=== PATIENT | female | born 1950 | race Caucasian/White ===

== ENCOUNTER 2018-03-31 12:29 | Observation (INO) | payer OTHER ==
--- NOTE | 2018-03-31 14:51 | RAD REPORT ---
[facility] 2:35 pm CLINICAL HISTORY: left leg pain and swelling. COMPARISON: July 2017 FINDINGS: Echogenic material consistent with acute thrombus is present within the left common femora l, left superficial femoral, left popliteal and proximal left greater saphenous veins. . The thrombus is occlusive IMPRESSION: Extensive acute left lower extremity deep venous thrombosis
--- NOTE | 2018-03-31 14:53 | RAD REPORT ---
EXAM DESCRIPTION: US - Lower Extremity Artery Uni Ltd - 03/31/2018 2:35 pm CLINICAL HISTORY: Left leg pain and swelling COMPARISON: None FINDINGS: The waveform of the left common femoral artery triphasic. Waveforms left superficial femor al, left popliteal, left posterior tibial and left dorsalis pedis arteries are biphasic. Mild to moderate plaque is present the left common femoral artery. Mild additional plaque seen within the arteries. IMPRESSION: No evidence of a high-grade stenosis/arterial occlusion
[2018-03-31 15:10] LABS: Absolute Lymphocytes (CBC) 2.4 K/uL (0.7-4.9); Absolute Monocytes 0.9 K/uL (0.1-1.3); Absolute Neutrophil 8.3 K/uL (1.8-8.0); Basophils % 0.8 % (0-1.3); Eosinophils % 1.1 % (0-4.4); Hematocrit 47.5 % (36.0-45.0); Lymphocytes % 20.2 % (15.3-44.8); MPV 7.7 fL (7.6-11.3); Monocytes % 7.7 % (3.3-12.3); RBC Red Blood Cell Count 5.13 M/uL (3.86-4.86)
[2018-03-31 15:12] LABS: Protime INR 0.97
[2018-03-31 15:28] LABS: ALT/SGPT 35 U/L (12-78); AST/SGOT 22 U/L (15-37); Albumin 3.7 g/dL (3.4-5.0); Alkaline Phosphatase 108 U/L (45-117); BUN Blood Urea Nitrogen 9 mg/dL (7-18); Bicarbonate 27 mmol/L (21-32); Bilirubin Direct < 0.1 mg/dL (0-0.2); Bilirubin Total 0.3 mg/dL (0.2-1.0); Glucose Level 91 mg/dL (74-106); Magnesium 2.2 mg/dL (1.8-2.4); Potassium 4.4 mmol/L (3.5-5.1); Protein, Total 7.5 g/dL (6.4-8.2); Sodium Level 136 mmol/L (136-145)
[2018-03-31] MEDS ORDERED: RIVAROXABAN 15 MG TABLET PO ONE (15:30)
--- NOTE | 2018-03-31 16:18 | RAD REPORT ---
EXAM DESCRIPTION: CT - Chest For Pe Angio - 03/31/2018 4:08 pm CLINICAL HISTORY: Chest pain / DVT COMPARISON: None. TECHNIQUE: Dynamically enhanced axial 3 mm thick images of the chest were obtained during administra tion of <100> mL Isovue 370 IV contrast. Coronal and oblique reconstruction images were generated and reviewed. Exam utilizes a protocol for optimal evaluation of pulmonary arterial tree. Maximum intensity projections 3D imaging was utilized All CT scans are performed using dose optimization technique as appropriate and may include automated exposure control or mA/KV adjustment according to patient size. FINDINGS: A pulmonary embolus is not seen. A thoracic aortic aneurysm is not noted. A pleural effusion is not seen. A pericardial effusion is not seen. A lung consolidation is not present. IMPRESSION: Negative for a pulmonary embolism.
--- NOTE | 2018-03-31 16:33 | EDPHYS ---
Physician Documentation [facility] Name: Kylie Kaplan Age: 68 yrs Sex: Female : 1950 Arrival Date: 03/31/2018 Time: 12:32 Bed 20 Private MD: Juana Avina ED Physician Eleazar Jean HPI: 03/31 13:24 This 68 yrs old Female presents to ER via Wheelchair with complaints of Leg snw Swelling. 13:24 The patient presents with pain, that is acute, swelling, tenderness. The complaints snw affect the left calf, left knee, left gardiner and anterior aspect of left ankle. Context: The problem was sustained at home, resulted from kneeling, the patient can partially bear weight. Onset: The symptoms/episode began/occurred suddenly, today. Associated signs and symptoms: Pertinent positives: swelling, redness, pulling sensation. Severity of symptoms: At their worst the symptoms were moderate. The patient has not experienced similar symptoms in the past. The patient has not recently seen a physician, the patient's primary care provider is Dr. Villanueav. Historical: - Allergies: 12:50 PENICILLINS; hb - Home Meds: 12:50 Ativan 1 mg Oral tab 1 tab 3 times per day [Active]; Belsomra 10 mg Oral tab 1 tab hb nightly [Active]; Incruse Ellipta 62.5 mcg/actuation inhalation dsdv 1 puff once daily [Active]; Remeron 22.5 mg Oral once daily [Active]; Seroquel 200 mg Oral tab 1 tab 2 times per day [Active]; Silenor 3 mg Oral tab once daily for insomnia [Active]; 12:52 levothyroxine 150 mcg oral tab [Active]; gabapentin 300 mg oral cap twice a day hb [Active]; famotidine 20 mg Oral tab 1 tab once daily [Active]; - PMHx: 12:50 Anxiety; hb - Immunization history:: Adult Immunizations up to date. - Social history:: Smoking status: Patient uses tobacco products, smokes one pack cigarettes per day. - Ebola Screening: : No symptoms or risks identified at this time. ROS: 13:24 Constitutional: Negative for fever, chills, and weight loss, Eyes: Negative for injury, snw pain, redness, and discharge, ENT: Negative for injury, pain, and discharge, Neck: Negative for injury, pain, and swelling, Cardiovascular: Negative for chest pain, palpitations, and edema, Respiratory: Negative for shortness of breath, cough, wheezing, and pleuritic chest pain, Abdomen/GI: Negative for abdominal pain, nausea, vomiting, diarrhea, and constipation, Back: Negative for injury and pain, : Negative for injury, bleeding, discharge, and swelling, Skin: Negative for injury, rash, and discoloration, Neuro: Negative for headache, weakness, numbness, tingling, and seizure. 13:24 MS/extremity: Positive for erythema, swelling, tenderness, of the left leg. Exam: 13:28 Constitutional: This is a well developed, well nourished patient who is awake, alert, snw and in no acute distress. Head/Face: Normocephalic, atraumatic. Eyes: Pupils equal round and reactive to light, extra-ocular motions intact. Lids and lashes normal. Conjunctiva and sclera are non-icteric and not injected. Cornea within normal limits. Periorbital areas with no swelling, redness, or edema. ENT: Nares patent. No nasal discharge, no septal abnormalities noted. Tympanic membranes are normal and external auditory canals are clear. Oropharynx with no redness, swelling, or masses, exudates, or evidence of obstruction, uvula midline. Mucous membranes moist. Neck: Trachea midline, no thyromegaly or masses palpated, and no cervical lymphadenopathy. Supple, full range of motion without nuchal rigidity, or vertebral point tenderness. No Meningismus. Chest/axilla: Normal chest wall appearance and motion. Nontender with no deformity. No lesions are appreciated. Cardiovascular: Regular rate and rhythm with a normal S1 and S2. No gallops, murmurs, or rubs. Normal PMI, no JVD. No pulse deficits. Respiratory: Lungs have equal breath sounds bilaterally, clear to auscultation and percussion. No rales, rhonchi or wheezes noted. No increased work of breathing, no retractions or nasal flaring. Abdomen/GI: Soft, non-tender, with normal bowel sounds. No distension or tympany. No guarding or rebound. No evidence of tenderness throughout. Back: No spinal tenderness. No costovertebral tenderness. Full range of motion. Skin: Warm, dry with normal turgor. Normal color with no rashes, no lesions, and no evidence of cellulitis. Neuro: Awake and alert, GCS 15, oriented to person, place, time, and situation. Cranial nerves II-XII grossly intact. Motor strength 5/5 in all extremities. Sensory grossly intact. Cerebellar exam normal. Normal gait. Psych: Awake, alert, with orientation to person, place and time. Behavior, mood, and affect are within normal limits. 13:28 Musculoskeletal/extremity: Extremities: grossly normal except: noted in the left leg: erythema, swelling, tenderness, ROM: no acute changes, Circulation is intact in all extremities. firm to palp and hyperemic. Vital Signs: 12:49 BP 116 / 85; Pulse 106; Resp 16; Temp 97.2; Pulse Ox 95% on R/A; Pain 4/10; hb 14:10 BP 140 / 89; Pulse 89; Resp 20; Pulse Ox 96% on R/A; aj 15:12 BP 152 / 95; Pulse 80; Resp 20; Pulse Ox 96% on R/A; aj 16:28 BP 136 / 86; Pulse 80; Resp 20; Pulse Ox 96% on R/A; aj 16:53 BP 139 / 88; Pulse 80; Resp 14; Pulse Ox 100% on R/A; mh5 MDM: 13:02 Patient medically screened. snw 16:32 Data reviewed: vital signs, nurses notes. Data interpreted: Pulse oximetry: on room air snw is 96 %. Interpretation: acceptable. Counseling: I had a detailed discussion with the patient and/or guardian regarding: the historical points, exam findings, and any diagnostic results supporting the discharge/admit diagnosis, the presence of at least one elevated blood pressure reading (>120/80) during this emergency department visit, lab results, radiology results, the need for further work-up and treatment in the hospital. Physician consultation: Sherin Carbajal MD was called at 16:33, was contacted at 16:33, regarding admission, to the telemetry unit. 03/31 14:36 Order name: Basic Metabolic Panel; Complete Time: 15:33 snw 03/31 16:24 Interpretation: GFR 59. snw 03/31 14:36 Order name: CBC with Diff; Complete Time: 15:55 snw 03/31 13:23 Order name: Lower Extremity Artery Uni Ltd US; Complete Time: 15:02 snw 03/31 14:36 Order name: LFT's; Complete Time: 15:33 snw 03/31 14:36 Order name: Magnesium; Complete Time: 15:33 snw 03/31 14:36 Order name: PT-INR; Complete Time: 16:33 snw 03/31 13:23 Order name: US Extremity Venous Unilateral Ltd; Complete Time: 15:02 snw 03/31 14:36 Order name: EKG; Complete Time: 14:37 snw 03/31 14:36 Order name: Cardiac monitoring; Complete Time: 15:13 snw 03/31 14:36 Order name: EKG - Nurse/Tech; Complete Time: 15:28 snw 03/31 14:36 Order name: IV Saline Lock; Complete Time: 15:13 snw 03/31 14:36 Order name: Labs collected and sent; Complete Time: 15:13 snw 03/31 14:36 Order name: CT Chest For PE Angio; Complete Time: 16:23 snw 03/31 14:36 Order name: O2 Per Protocol; Complete Time: 15:13 snw 03/31 14:36 Order name: O2 Sat Monitoring; Complete Time: 15:14 snw Administered Medications: 15:51 Drug: Xarelto 15 mg Route: PO; aj 17:41 Follow up: Response: No adverse reaction aj Disposition: 03/31/18 16:32 Hospitalization ordered by Sherin Carbjaal for Observation. Preliminary diagnosis is Acute embolism and thrombosis of other specified deep vein of left lower extremity. - Bed requested for Telemetry/MedSurg (observation). - Status is Observation. aj - Condition is Stable. - Problem is new. - Symptoms are unchanged. UTI on Admission? No Addendum: 04/12/2018 15:11 Co-signature as Attending Physician, Eleazar Jean MD Available for consultation at p s1 all times. . Signatures: Dispatcher [employer] Julia Viramontes RN RN dw Myers, Amanda, RN RN aj Therrien, Shelly, SINGER SONGWRITER-C SINGER SONGWRITER-Csnw Kyra Barrera, RN Eleazar Woods MD MD ps1 Corrections: (The following items were deleted from the chart) 03/31 12:50 12:49 Social history: Smoking status: Patient/guardian denies using tobacco, hb hb 12:52 12:50 Home Meds: levothyroxine 100 mcg tab 1 tab once daily; hb hb 17:16 16:32 Hospitalization Ordered by Sherin Carbajal MD for Observation. Preliminary diagnosis dw is Acute embolism and thrombosis of other specified deep vein of left lower extremity. Bed requested for Telemetry/MedSurg (observation). Status is Observation. Condition is Stable. Problem is new. Symptoms are unchanged. UTI on Admission? No. snw 17:41 17:16 03/31/2018 16:32 Hospitalization Ordered by Sherin Carbajal MD for Observation. aj Preliminary diagnosis is Acute embolism and thrombosis of other specified deep vein of left lower extremity. Bed requested for Telemetry/MedSurg (observation). Status is Observation. Condition is Stable. Problem is new. Symptoms are unchanged. UTI on Admission? No. dw
--- NOTE | 2018-03-31 16:33 | ER ---
Nurse's Notes [facility] Name: Kylie Kaplan Age: 68 yrs Sex: Female : 1950 Arrival Date: 03/31/2018 Time: 12:32 Bed 20 Private MD: Juana Avina Diagnosis: Acute embolism and thrombosis of other specified deep vein of left lower extremity Presentation: 03/31 12:48 Presenting complaint: Left lower leg redness, pain, and swelling x 1 hr. Transition of hb care: patient was not received from another setting of care. Onset of symptoms was March 31, 2018. Risk Assessment: Do you want to hurt yourself or someone else? Patient reports no desire to harm self or others. Care prior to arrival: None. 12:48 Method Of Arrival: Wheelchair 12:48 Acuity: TONY 3 hb 17:40 Initial Sepsis Screen: Does the patient meet any 2 criteria? No. Patient's initial aj sepsis screen is negative. Does the patient have a suspected source of infection? No. Patient's initial sepsis screen is negative. Triage Assessment: 17:40 Pain: Denies pain. aj Historical: - Allergies: 12:50 PENICILLINS; hb - Home Meds: 12:50 Ativan 1 mg Oral tab 1 tab 3 times per day [Active]; Belsomra 10 mg Oral tab 1 tab hb nightly [Active]; Incruse Ellipta 62.5 mcg/actuation inhalation dsdv 1 puff once daily [Active]; Remeron 22.5 mg Oral once daily [Active]; Seroquel 200 mg Oral tab 1 tab 2 times per day [Active]; Silenor 3 mg Oral tab once daily for insomnia [Active]; 12:52 levothyroxine 150 mcg oral tab [Active]; gabapentin 300 mg oral cap twice a day hb [Active]; famotidine 20 mg Oral tab 1 tab once daily [Active]; - PMHx: 12:50 Anxiety; hb - Immunization history:: Adult Immunizations up to date. - Social history:: Smoking status: Patient uses tobacco products, smokes one pack cigarettes per day. - Ebola Screening: : No symptoms or risks identified at this time. Screenin:26 Abuse screen: Denies threats or abuse. Denies injuries from another. Nutritional aj screening: No deficits noted. Tuberculosis screening: No symptoms or risk factors identified. Fall Risk None identified. Assessment: 13:21 General: Appears in no apparent distress. comfortable, Behavior is calm, cooperative, aj appropriate for age. Neuro: Level of Consciousness is awake, alert, obeys commands, Oriented to person, place, time, situation, Appropriate for age. Cardiovascular: Pulses are 3+ in left dorsalis pedis artery. Respiratory: Airway is patent Respiratory effort is even, unlabored, Respiratory pattern is regular, symmetrical. Derm: Skin is intact, is healthy with good turgor, Skin is pink, warm \T\ dry. normal. Derm: Purple color noted to left leg. Musculoskeletal: Circulation, motion, and sensation intact. Range of motion: intact in all extremities, Swelling present in left leg. 16:00 Reassessment: Patient appears in no apparent distress at this time. No changes from aj previously documented assessment. Patient and/or family updated on plan of care and expected duration. Pain level reassessed. Patient is alert, oriented x 3, equal unlabored respirations, skin warm/dry/pink. Patient reports continued anxiety. Reassured about plan of care and condition. Patient denies pain at this time. 17:37 Reassessment: Patient appears in no apparent distress at this time. No changes from aj previously documented assessment. Patient and/or family updated on plan of care and expected duration. Pain level reassessed. Patient is alert, oriented x 3, equal unlabored respirations, skin warm/dry/pink. Vital Signs: 12:49 BP 116 / 85; Pulse 106; Resp 16; Temp 97.2; Pulse Ox 95% on R/A; Pain 4/10; hb 14:10 BP 140 / 89; Pulse 89; Resp 20; Pulse Ox 96% on R/A; aj 15:12 BP 152 / 95; Pulse 80; Resp 20; Pulse Ox 96% on R/A; aj 16:28 BP 136 / 86; Pulse 80; Resp 20; Pulse Ox 96% on R/A; aj 16:53 BP 139 / 88; Pulse 80; Resp 14; Pulse Ox 100% on R/A; mh5 ED Course: 12:32 Patient arrived in ED. rg4 12:33 Juana Avina MD is Private Physician. rg4 12:48 Triage completed. hb 12:49 Arm band placed on. hb 12:50 Zabrina Hammonds, RN is Primary Nurse. aj 12:55 Aline Santo FNP-C [facility]. snw 12:56 Eleazar Jean MD is Attending Physician. snw 13:26 Patient has correct armband on for positive identification. Placed in gown. Call light aj in reach. Side rails up X2. Adult w/ patient. monitoring analyst on. Pulse ox on. NIBP on. 14:27 Ultrasound completed. Patient tolerated well. Notified PERINATOLOGY PHYSICIAN/PA alien. sg3 14:30 Initial lab(s) drawn, by me, sent to lab. Inserted saline lock: 20 gauge in right aj antecubital area, using aseptic technique. Blood collected. 14:35 Lower Extremity Artery Uni Ltd US In Process Unspecified. EDMS 14:35 US Extremity Venous Unilateral Ltd In Process Unspecified. EDMS 15:33 EKG done, by ED staff, reviewed by Eleazar Jean MD. 5 16:[address] aj 16:00 Warm blanket given. toileted with bedpan. aj 16:08 CT Chest For PE Angio In Process Unspecified. EDMS 16:31 Sherin Carbajal MD is Hospitalizing Provider. snw 17:37 No provider procedures requiring assistance completed. Patient admitted, IV remains in aj place. intact. Administered Medications: 15:51 Drug: Xarelto 15 mg Route: PO; aj 17:41 Follow up: Response: No adverse reaction Outcome: 16:32 Decision to Hospitalize by Provider. snw 17:37 Admitted to Med/surg accompanied by tech, family with patient, via stretcher, room 428, aj with chart, Report called to Tamara 17:37 Condition: good 17:37 Instructed on the need for admit, Demonstrated understanding of instructions. 17:41 Patient left the ED. aj Signatures: Dispatcher [employer] EDMS Zabrina Hammonds RN RN aj Therrien, Shelly, FNP-C FNP-Csnw Kyra Barrera RN RN hb Garcia, Rubi rg4 Jody Esquivel 5 Nan Ortiz sg3 Corrections: (The following items were deleted from the chart) 12:50 12:49 Social history: Smoking status: Patient/guardian denies using tobacco, hb hb 12:52 12:50 Home Meds: levothyroxine 100 mcg tab 1 tab once daily; hb hb
[2018-03-31 18:22] VITALS: BMI 25.0
[2018-03-31] MEDS ORDERED: ACETAMINOPHEN 500 MG TAB PO PRN (18:22)
[2018-03-31] MEDS ORDERED: ONDANSETRON 4 MG/2 ML VIAL IV PRN (18:22)
--- NOTE | 2018-03-31 18:53 | P.HP ---
Certification for Inpatient Patient admitted to: Observation With expected LOS: <2 Midnights Practitioner: I am a practitioner with admitting privileges, knowledge of patient current condition, hospital course, and medical plan of care. Services: Services provided to patient in accordance with Admission requirements found in Title 42 Section 412.3 of the Code of Federal Regulations Patient History Date of Service: 04/01/18 Reason for admission: Left lower extremity swelling History of Present Illness: This is a 68-year-old female with history of thyroid disease otherwise healthy admitted for DVT in her left lower extremity. Patient stated that she was kneeling for prolonged time and when she ran across the neighbor, she heard a pop in had pain and swelling of the left lower leg. In the ER, lower extremity venous ultrasound was positive for acute left lower extremity DVT in the left common femoral, superficial and popliteal proximal greater saphenous veins. Arterial studies were negative for any stenosis. CT chest was negative for any PE. She was denying any respiratory symptoms. At the time of my exam, she is alert oriented x3, not in any acute distress. Allergies Penicillins Allergy (Severe, Verified 05/19/16 04:10) Hives/Rash Home Medications: Eszopiclone 3 mg PO BEDTIME 03/31/18 Famotidine 20 mg PO BID 03/31/18 Gabapentin 600 mg PO BID 03/31/18 LORazepam [Ativan*] 0.5 mg PO BID 03/31/18 Levothyroxine Sodium 150 mcg PO DAILY 03/31/18 Nortriptyline HCl [Pamelor] 150 mg PO BEDTIME 03/31/18 Quetiapine Fumarate [Seroquel] 100 mg PO BEDTIME 03/31/18 Rivaroxaban [Xarelto*] 15 mg PO BIDWM #42 tablet 04/01/18 - Past Medical/Surgical History Has patient received pneumonia vaccine in the past: No Diabetic: No -: Insomnia -: Hypothyroidism -: Tubal Ligation -: Tonsillectomy - Family History Father -: Heart disease Mother -: Cancer, Other (see notes) Notes: lung and cervical CA - Social History Smoking Status: Current every day smoker Alcohol use: No CD- Drugs: No Caffeine use: Yes Place of Residence: Home Review of Systems 10-point ROS is otherwise unremarkable Physical Examination - Vital Signs Temperature: 97.2 F Blood Pressure: 139/88 Pulse: 80 Respirations: 14 - Physical Exam General: Alert, In no apparent distress, Oriented x3 HEENT: Atraumatic, PERRLA, Mucous membr. moist/pink, EOMI, Sclerae nonicteric Neck: Supple, 2+ carotid pulse no bruit, No LAD, Without JVD or thyroid abnormality Respiratory: Clear to auscultation bilaterally, Normal air movement Cardiovascular: Regular rate/rhythm, Normal S1 S2 Gastrointestinal: Normal bowel sounds, No tenderness Musculoskeletal: Swelling (Left lower extremity, below knee), Tenderness Integumentary: No rashes Neurological: Normal gait, Normal speech, Normal strength at 5/5 x4 extr, Normal tone, Normal affect Lymphatics: No axilla or inguinal lymphadenopathy - Studies Laboratory Data (last 24 hrs) 03/31/18 14:55: PT 11.5, INR 0.97 03/31/18 14:55: WBC 11.9 H, Hgb 16.6 H, Hct 47.5 H, Plt Count 263 03/31/18 14:55: Sodium 136, Potassium 4.4, BUN 9, Creatinine 0.94, Glucose 91, Magnesium 2.2, Total Bilirubin 0.3, AST 22, ALT 35, Alkaline Phosphatase 108 Assessment and Plan - Plan This is a 62-year-old female with: Deep venous thrombosis. Anxiety Depression Thyroid disease CT chest negative for pulmonary embolism, no evidence of any respiratory distress. Venous ultrasound positive for DVT in the left common femoral, left superficial , left popliteal approximately saphenous veins. Arterial studies negative for any hemodynamically significant stenosis Admit to floor with tele. Monitor overnight. Xarelto 50 mg twice a day started, she will need the 15 mg b.i.d. dosing for 21 days then 20 mg daily dosing. DVT prophylaxis: Xarelto for DVT treatment GI prophylaxis: Protonix Diet: Heart healthy Disposition: Monitor overnight of the floor with tele. Likely discharge home tomorrow - Advance Directives Does patient have a Living Will: No Does patient have a Durable POA for Healthcare: No Physician Review: Patient Assessed, Agree with Above Assessment and Plan Time Spent Managing Pts Care (In Minutes): 55
[2018-03-31 18:56] VITALS: O2SAT 97
[2018-03-31] MEDS ORDERED: ESZOPICLONE 1 MG TAB PO PRN (18:57)
[2018-03-31] MEDS ORDERED: HOME MED 1 EA UNK (Eszopiclone [Eszopiclone] 3 MG) PO SCH (21:00)
[2018-03-31] MEDS ORDERED: HOME MED 1 EA UNK (Gabapentin [Gabapentin] 600 MG) PO SCH (21:00)
[2018-03-31] MEDS: RIVAROXABAN 15 MG TABLET PO SCH (21:00)
[2018-03-31] MEDS ORDERED: NORTRIPTYLINE HCL 150 MG PO SCH ×2 (21:00→21:20)
[2018-03-31] MEDS ORDERED: QUETIAPINE 100MG TAB PO SCH (21:00)
[2018-03-31] MEDS: LORAZEPAM 0.5 MG TABLET PO SCH (22:20)
[2018-03-31] MEDS: GABAPENTIN 300 MG CAP PO SCH (22:21)
[2018-03-31] MEDS: FAMOTIDINE 20 MG TAB PO SCH (22:21)
[2018-04-01 05:46] LABS: Bilirubin Total 0.2 mg/dL (0.2-1.0); Magnesium 2.4 mg/dL (1.8-2.4); Phosphorus 3.1 mg/dL (2.5-4.9); Potassium 4.2 mmol/L (3.5-5.1); Protein, Total 6.3 g/dL (6.4-8.2)
[2018-04-01] MEDS ORDERED: LEVOTHYROXINE SOD 0.075 MG TAB PO SCH (06:00)
[2018-04-01 06:20] LABS: Absolute Lymphocytes (CBC) 3.1 K/uL (0.7-4.9); Absolute Monocytes 0.9 K/uL (0.1-1.3); Absolute Neutrophil 4.7 K/uL (1.8-8.0); Basophils % 0.8 % (0-1.3); Eosinophils % 2.9 % (0-4.4); Lymphocytes % 34.3 % (15.3-44.8); Monocytes % 10.2 % (3.3-12.3); RBC Red Blood Cell Count 4.63 M/uL (3.86-4.86)
[2018-04-01 07:41] LABS: Urine Appearance CLEAR; Urine Bilirubin NEGATIVE (NEG); Urine Blood NEGATIVE (NEG); Urine Color YELLOW; Urine Glucose NEGATIVE (NEG); Urine Protein NEGATIVE (NEG); Urine Specific Gravity >=1.030 (1.005-1.030); Urine Urobilinogen 0.2 mg/dL (0.2-1.0)
[2018-04-01 07:44] LABS: Urine Microscopic Reflex NO UMIC
[2018-04-01] MEDS ORDERED: HOME MED 1 EA UNK (Levothyroxine Sodium [Levothyroxine Sodium] 150 MCG) PO SCH (09:00)
[2018-04-01] MEDS: RIVAROXABAN 15 MG TABLET PO SCH (09:34)
[2018-04-01] MEDS: GABAPENTIN 300 MG CAP PO SCH (09:35)
[2018-04-01] MEDS: FAMOTIDINE 20 MG TAB PO SCH (09:35)
[2018-04-01] MEDS: LORAZEPAM 0.5 MG TABLET PO SCH (09:35)
[2018-04-01 12:20] VITALS: BP 139/88; TEMP 97.2
--- NOTE | 2018-04-01 12:21 | P.SSS ---
Patient History Date of Service: 04/01/18 Reason for admission: Left lower extremity swelling History of Present Illness: This is a 68-year-old female with history of thyroid disease otherwise healthy admitted for DVT in her left lower extremity. Patient stated that she was kneeling for prolonged time and when she ran across the neighbor, she heard a pop in had pain and swelling of the left lower leg. In the ER, lower extremity venous ultrasound was positive for acute left lower extremity DVT in the left common femoral, superficial and popliteal proximal greater saphenous veins. Arterial studies were negative for any stenosis. CT chest was negative for any PE. She was denying any respiratory symptoms. At the time of my exam, she is alert oriented x3, not in any acute distress. Allergies Penicillins Allergy (Severe, Verified 05/19/16 04:10) Hives/Rash Home Medications: Eszopiclone 3 mg PO BEDTIME 03/31/18 Famotidine 20 mg PO BID 03/31/18 Gabapentin 600 mg PO BID 03/31/18 LORazepam [Ativan*] 0.5 mg PO BID 03/31/18 Levothyroxine Sodium 150 mcg PO DAILY 03/31/18 Nortriptyline HCl [Pamelor] 150 mg PO BEDTIME 03/31/18 Quetiapine Fumarate [Seroquel] 100 mg PO BEDTIME 03/31/18 Rivaroxaban [Xarelto*] 15 mg PO BIDWM #42 tablet 04/01/18 - Past Medical/Surgical History Has patient received pneumonia vaccine in the past: No Diabetic: No -: Insomnia -: Hypothyroidism -: Tubal Ligation -: Tonsillectomy - Family History Father -: Heart disease Mother -: Cancer, Other (see notes) Notes: lung and cervical CA - Social History Smoking Status: Current every day smoker Alcohol use: No CD- Drugs: No Caffeine use: Yes Place of Residence: Home Review of Systems 10-point ROS is otherwise unremarkable Physical Examination - Vital Signs Temperature: 97.2 F Blood Pressure: 139/88 Pulse: 80 Respirations: 14 Pulse Ox (%): 94 - Physical Exam General: Alert, In no apparent distress, Oriented x3 HEENT: Atraumatic, PERRLA, Mucous membr. moist/pink, EOMI, Sclerae nonicteric Neck: Supple, 2+ carotid pulse no bruit, No LAD, Without JVD or thyroid abnormality Respiratory: Clear to auscultation bilaterally, Normal air movement Cardiovascular: Regular rate/rhythm, Normal S1 S2 Gastrointestinal: Normal bowel sounds, No tenderness Musculoskeletal: No tenderness, Other (Left lower extremity swelling and erythema resolved) Integumentary: No rashes Neurological: Normal gait, Normal speech, Normal strength at 5/5 x4 extr, Normal tone, Normal affect Lymphatics: No axilla or inguinal lymphadenopathy - Studies Laboratory Data (last 24 hrs) 03/31/18 14:55: PT 11.5, INR 0.97 03/31/18 14:55: WBC 11.9 H, Hgb 16.6 H, Hct 47.5 H, Plt Count 263 03/31/18 14:55: Sodium 136, Potassium 4.4, BUN 9, Creatinine 0.94, Glucose 91, Magnesium 2.2, Total Bilirubin 0.3, AST 22, ALT 35, Alkaline Phosphatase 108 Treatment Summary: Patient was admitted with a DVT in her left lower extremity, observed overnight. She was started on Xarelto. She will continue 15 mg twice a day dosing for 21 days and then 20 mg daily of eliana. She remained hemodynamically stable, swelling of left lower extremity resolvesd. - Disposition Disposition: ROUTINE DISCHARGE Condition: GOOD Patient Discharge Instructions: Please follow up with primary care physician in 1-2 week. New medications: Xarelto, for your blood clot. He will take 15 mg twice a day for 21 days. Prescription has been sent to pharmacy for this. After the 21 days, you will then be taking 20 mg daily. I would like you to follow up with the primary care physician for a prescription for after the 21 days dosage. Diet: AHA Activity: Ad john Physician Review: Patient Assessed, Agree with Above Assessment and Plan Time Spent Managing Pts Care (In Minutes): 45
--- NOTE | 2018-04-01 17:28 | EKG ---
Test Date: 2018-03-31 Test Time: 15:26:46 Chemist Water Purification: ANIBAL MEASUREMENT RESULTS: Intervals: Rate: 83 KS: 262 QRSD: 98 QT: 396 QTc: 465 [place]: P: 68 KS: 262 QRS: 56 T: 82 INTERPRETIVE STATEMENTS: Sinus rhythm with 1st degree AV block Possible Left atrial enlargement Borderline ECG Compared to ECG 05/19/2016 21:09:32 No significant changes Electronically Signed On 04-01-18 17:18:14 SENIOR SYSTEMS SOFTWARE ENGINEER by Damon Vargas
== END 2018-04-01 12:30 | disposition home or self-care (01) ==
LOC: ER 12:29 → ERHOLD 17:02 → 4TH 17:34
PROVIDERS: ADMIT Family Medicine; ATTEND Family Medicine
DX: I82.412 Acute embolism and thrombosis of left femoral vein (principal); I82.812 Embolism and thrombosis of superficial veins of left lower extremity; I82.432 Acute embolism and thrombosis of left popliteal vein; I82.4Y2 Acute embolism and thrombosis of unspecified deep veins of left proximal lower extremity; E03.9 Hypothyroidism, unspecified; F41.8 Other specified anxiety disorders; F17.210 Nicotine dependence, cigarettes, uncomplicated; Z88.0 Allergy status to penicillin
CPT/HCPCS: 36415; 71275; 80048; 80053; 80076; 81003; 83735 ×2; 84100; 85025 ×2; 85610; 93005; 93926; 93971; 94760 ×2; 99285; G0378 ×2; Q9967

== ENCOUNTER 2018-04-16 18:43 | Emergency (ER) | payer OTHER ==
--- NOTE | 2018-04-16 20:32 | RAD REPORT ---
EXAM DESCRIPTION: CT - Head Brain Wo Cont - 04/16/2018 8:20 pm CLINICAL HISTORY: HEADACHE Drowsiness COMPARISON: Head Brain Wo Cont dated 10/07/2016; CT HEAD BRAIN WWO CONTRAST dated 05/24/2011 TECHNIQUE: All CT scans are performed using dose optimization technique as appropriate and may inclu de automated exposure control or mA/KV adjustment according to patient size. FINDINGS: No intracranial hemorrhage, hydrocephalus or extra-axial fluid collection.No areas of brai n edema or evidence of midline shift. The paranasal sinuses and mastoids are clear. The calvarium is intact. IMPRESSION: No acute intracranial abnormality.
[2018-04-16] MEDS ORDERED: NA CHLORIDE 0.9% 1,000 ML ONE (20:49)
--- NOTE | 2018-04-16 20:49 | RAD REPORT ---
EXAM DESCRIPTION: RAD - Chest Single View - 04/16/2018 8:37 pm CLINICAL HISTORY: DYSPNEA Chest pain. COMPARISON: CHEST PA AND LAT 2 VIEW dated 07/29/2011 FINDINGS: Portable technique limits examination quality. The lungs are grossly clear. The heart is normal in size. No displaced fractures. IMPRESSION: No acute intrathoracic process suspected.
[2018-04-16 20:54] LABS: Absolute Lymphocytes (CBC) 2.5 K/uL (0.7-4.9); Absolute Monocytes 0.9 K/uL (0.1-1.3); Basophils % 0.2 % (0-1.3); Eosinophils % 1.7 % (0-4.4); Hematocrit 40.6 % (36.0-45.0); Lymphocytes % 23.3 % (15.3-44.8); MPV 7.2 fL (7.6-11.3); Monocytes % 8.2 % (3.3-12.3); RBC Red Blood Cell Count 4.38 M/uL (3.86-4.86)
[2018-04-16 20:59] LABS: Urine Blood NEGATIVE (NEG); Urine Glucose NEGATIVE (NEG); Urine Protein NEGATIVE (NEG); Urine Specific Gravity 1.005 (1.005-1.030)
[2018-04-16 21:13] LABS: ALT/SGPT 16 U/L (12-78); AST/SGOT 12 U/L (15-37); Albumin 3.1 g/dL (3.4-5.0); Alkaline Phosphatase 101 U/L (45-117); BUN Blood Urea Nitrogen 9 mg/dL (7-18); Bicarbonate 26 mmol/L (21-32); Bilirubin Direct 0.1 mg/dL (0-0.2); Bilirubin Total 0.4 mg/dL (0.2-1.0); Glucose Level 95 mg/dL (74-106); Magnesium 2.6 mg/dL (1.8-2.4); NT PRO-BNP 30 pg/mL (<125); Potassium 3.9 mmol/L (3.5-5.1); Protein, Total 8.2 g/dL (6.4-8.2); Sodium Level 133 mmol/L (136-145); Troponin (Emerg Dept Use Only) < 0.02 ng/mL (0.0-0.045)
[2018-04-16 21:14] LABS: Protime INR 1.48
--- NOTE | 2018-04-16 21:44 | RAD REPORT ---
EXAM DESCRIPTION: CT - Head angio - 04/16/2018 9:34 pm CLINICAL HISTORY: headache COMPARISON: Head Brain Wo Cont dated 04/16/2018; Head Brain Wo Cont dated 10/07/2016 TECHNIQUE: CT angiography of the head was performed with MIPs. All CT scans are performed using dose optimization technique as appropriate and may include automated exposure control or mA/KV adjustment according to patient size. FINDINGS: No evidence of aneurysm is detected. No flow-limiting stenosis or vascular malformation id entified. Antegrade flow is seen in the vertebral arteries. The vertebral arteries are codominant. The visualized dural venous sinuses are patent. IMPRESSION: No significant flow abnormality is detected.
--- NOTE | 2018-04-16 22:51 | ER ---
Nurse's Notes [facility] Name: Kylie Kaplan Age: 68 yrs Sex: Female : 1950 Arrival Date: 04/16/2018 Time: 18:47 Bed 19 Private MD: Juana Avina Diagnosis: Headache;Dizziness and giddiness Presentation: 04/16 18:59 Presenting complaint: Patient states: seen here March 31 and diagnosed with DVT. aa5 Pt c/o headache to right side of head x 2-3 days ago. Pt denies nausea or vomiting. Pt states "I was just a little dizzy a little bit ago but I haven't been". Transition of care: patient was not received from another setting of care. Onset of symptoms was April 2018. Risk Assessment: Do you want to hurt yourself or someone else? Patient reports no desire to harm self or others. Initial Sepsis Screen: Does the patient meet any 2 criteria? No. Patient's initial sepsis screen is negative. Does the patient have a suspected source of infection? No. Patient's initial sepsis screen is negative. Care prior to arrival: None. 18:59 Method Of Arrival: Ambulatory aa5 18:59 Acuity: TONY 3 aa5 Historical: - Allergies: 19:03 PENICILLINS; aa5 - Home Meds: 19:03 Ativan 1 mg Oral tab 1 tab 3 times per day [Active]; Belsomra 10 mg Oral tab 1 tab aa5 nightly [Active]; famotidine 20 mg Oral tab 1 tab once daily [Active]; gabapentin 300 mg Oral cap twice a day [Active]; Incruse Ellipta 62.5 mcg/actuation inhalation dsdv 1 puff once daily [Active]; levothyroxine 150 mcg tab [Active]; Remeron 22.5 mg Oral once daily [Active]; Seroquel 200 mg Oral tab 1 tab 2 times per day [Active]; Silenor 3 mg Oral tab once daily for insomnia [Active]; Xarelto 15 mg oral tab twice a day [Active]; - PMHx: 19:03 Anxiety; Thyroid problem; DVT; Hyperlipidemia; aa5 - PSHx: 19:03 Tonsillectomy; Tubal ligation; aa5 - Immunization history:: Adult Immunizations unknown. - Social history:: Smoking status: Patient uses tobacco products, smokes one-half pack cigarettes per day. - Ebola Screening: : No symptoms or risks identified at this time. Screenin:20 Abuse screen: Denies threats or abuse. Nutritional screening: No deficits noted. jd3 Tuberculosis screening: No symptoms or risk factors identified. Fall Risk Ambulatory Aid- None/Bed Rest/Nurse Assist (0 pts). Gait- Normal/Bed Rest/Wheelchair (0 pts) Mental Status- Oriented to own ability (0 pts). Total Layne Fall Scale indicates No Risk (0-24 pts). Assessment: 19:16 General: Appears in no apparent distress. uncomfortable, Behavior is cooperative, jd3 appropriate for age, anxious. Pain: Complains of pain in head Quality of pain is described as aching. Neuro: Level of Consciousness is awake, alert, obeys commands, Oriented to person, place, time, situation, Gait is steady, Speech is normal, Facial symmetry appears normal, Pupils are PERRLA. Cardiovascular: Denies chest pain, Capillary refill < 3 seconds Patient's skin is warm and dry. Respiratory: Airway is patent Respiratory effort is even, unlabored, Respiratory pattern is regular, symmetrical, Denies shortness of breath. GI: No signs and/or symptoms were reported involving the gastrointestinal system. : No signs and/or symptoms were reported regarding the genitourinary system. EENT: No signs and/or symptoms were reported regarding the EENT system. Derm: Skin is intact, Skin is dry, Skin is normal, Skin temperature is warm. Musculoskeletal: Circulation, motion, and sensation intact. Range of motion: intact in all extremities. 20:41 Reassessment: Patient appears in no apparent distress at this time. No changes from jd3 previously documented assessment. Patient and/or family updated on plan of care and expected duration. Pain level reassessed. Patient is alert, oriented x 3, equal unlabored respirations, skin warm/dry/pink. 20:54 Reassessment: Patient appears in no apparent distress at this time. Patient and/or jd3 family updated on plan of care and expected duration. Pain level reassessed. Patient is alert, oriented x 3, equal unlabored respirations, skin warm/dry/pink. 21:28 Reassessment: Patient appears in no apparent distress at this time. Patient and/or jd3 family updated on plan of care and expected duration. Pain level reassessed. Patient is alert, oriented x 3, equal unlabored respirations, skin warm/dry/pink. pt to CT for CT angio with weatherization technician. 22:22 Reassessment: Patient appears in no apparent distress at this time. No changes from jd3 previously documented assessment. Patient and/or family updated on plan of care and expected duration. Pain level reassessed. Patient is alert, oriented x 3, equal unlabored respirations, skin warm/dry/pink. 23:20 Reassessment: Patient appears in no apparent distress at this time. Patient and/or jd3 family updated on plan of care and expected duration. Pain level reassessed. Patient is alert, oriented x 3, equal unlabored respirations, skin warm/dry/pink. Patient states feeling better. Vital Signs: 19:03 BP 116 / 74; Pulse 93; Resp 16 S; Temp 98.1(TE); Pulse Ox 98% on R/A; Weight 70.31 kg aa5 (R); Height 5 ft. 7 in. (170.18 cm) (R); Pain 0/10; 20:54 BP 135 / 83; Pulse 79; Resp 17 S; Pulse Ox 100% on R/A; jd3 21:28 BP 126 / 70; Pulse 82; Resp 17 S; Pulse Ox 100% on R/A; jd3 22:22 BP 126 / 81; Pulse 83; Resp 15 S; Pulse Ox 99% on R/A; jd3 19:03 Body Mass Index 24.28 (70.31 kg, 170.18 cm) aa5 ED Course: 18:47 Patient arrived in ED. sb2 18:48 Juana Avina MD is Private Physician. sb2 18:59 Arm band placed on. aa5 19:01 Triage completed. aa5 19:16 Hernando Dillon, JAZMIN is Primary Nurse. jd3 19:20 Patient has correct armband on for positive identification. Bed in low position. Call j light in reach. Side rails up X 1. Adult w/ patient. 19:26 Riley Funes MD is Attending Physician. chaparrita 20:[address] nj 20:20 CT completed. Patient tolerated procedure well. Patient moved back from CT. nj 20:20 Radiology exam delayed due to lab results not completed at this time. (BUN/Creatinine). nj 20:20 CT Head Brain wo Cont In Process Unspecified. EDMS 20:37 XRAY Chest (1 view) In Process Unspecified. EDMS 20:40 Initial lab(s) drawn, by me, sent to lab. 20:42 Inserted saline lock: 20 gauge in right antecubital area, using aseptic technique. Blood collected. 21:[address] via wheelchair. nj 21:34 CT completed. Patient tolerated procedure well. Patient moved back from CT. nj 21:35 Head angio In Process Unspecified. EDMS 22:50 Juana Avina MD is Referral Physician. [facility] 23:18 No provider procedures requiring assistance completed. IV discontinued, intact, jd3 bleeding controlled, No redness/swelling at site. Pressure dressing applied. Administered Medications: 20:53 Drug: NS 0.9% 1000 ml Route: IV; Rate: 125 ml/hr; Site: right antecubital; jd3 23:20 Follow up: Response: No adverse reaction; IV Status: Completed infusion jd3 22:58 Drug: Valtrex 1000 mg Route: PO; jd3 23:20 Follow up: Response: No adverse reaction jd3 22:58 Drug: [place] 5 mg-325 mg 1 tabs Route: PO; jd3 23:21 Follow up: Response: No adverse reaction jd3 Outcome: 22:51 Discharge ordered by . [facility] 23:19 Discharged to home ambulatory, with family. jd3 23:19 Condition: stable 23:19 Discharge instructions given to patient, family, Instructed on discharge instructions, follow up and referral plans. medication usage, Demonstrated understanding of instructions, follow-up care, medications, Prescriptions given X 2. 23:24 Patient left the ED. rr5 Signatures: Dispatcher [employer] EDRI Riley Funes MD MD cha Calderon, Audri, RN RN sandy5 Gilbert Simon Jonathon, RN RN jd3 Karen Espinosa 2 Rickey Ortiz RN RN rr5 Barby Cheng
--- NOTE | 2018-04-16 22:52 | EDPHYS ---
Physician Documentation [facility] Name: Kylie Kaplan Age: 68 yrs Sex: Female : 1950 Arrival Date: 04/16/2018 Time: 18:47 Bed 19 Private MD: Juana Avina ED Physician Riley Funes HPI: 04/16 22:43 This 68 yrs old Female presents to ER via Ambulatory with complaints of HEAD chaparrita PAIN. 22:43 The patient complains of pain to the top of head, right mosque, left frontal area, left chaparrita side of the back of head, left temporal area, left occipital area and left base of the skull. The patient describes the headache as intermittent. Onset: The symptoms/episode began/occurred. Historical: - Allergies: 19:03 PENICILLINS; aa5 - Home Meds: 19:03 Ativan 1 mg Oral tab 1 tab 3 times per day [Active]; Belsomra 10 mg Oral tab 1 tab aa5 nightly [Active]; famotidine 20 mg Oral tab 1 tab once daily [Active]; gabapentin 300 mg Oral cap twice a day [Active]; Incruse Ellipta 62.5 mcg/actuation inhalation dsdv 1 puff once daily [Active]; levothyroxine 150 mcg tab [Active]; Remeron 22.5 mg Oral once daily [Active]; Seroquel 200 mg Oral tab 1 tab 2 times per day [Active]; Silenor 3 mg Oral tab once daily for insomnia [Active]; Xarelto 15 mg oral tab twice a day [Active]; - PMHx: 19:03 Anxiety; Thyroid problem; DVT; Hyperlipidemia; aa5 - PSHx: 19:03 Tonsillectomy; Tubal ligation; aa5 - Immunization history:: Adult Immunizations unknown. - Social history:: Smoking status: Patient uses tobacco products, smokes one-half pack cigarettes per day. - Ebola Screening: : No symptoms or risks identified at this time. ROS: 22:47 Constitutional: Negative for fever, chills, and weight loss, Eyes: Negative for injury, chaparrita pain, redness, and discharge, ENT: Negative for injury, pain, and discharge, Neck: Negative for injury, pain, and swelling, Cardiovascular: Negative for chest pain, palpitations, and edema, Respiratory: Negative for shortness of breath, cough, wheezing, and pleuritic chest pain, Abdomen/GI: Negative for abdominal pain, nausea, vomiting, diarrhea, and constipation, Back: Negative for injury and pain, : Negative for injury, bleeding, discharge, and swelling, MS/Extremity: Negative for injury and deformity, Psych: Negative for depression, anxiety, suicide ideation, homicidal ideation, and hallucinations, Allergy/Immunology: Negative for hives, rash, and allergies, Endocrine: Negative for neck swelling, polydipsia, polyuria, polyphagia, and marked weight changes, Hematologic/Lymphatic: Negative for swollen nodes, abnormal bleeding, and unusual bruising. 22:47 Skin: Positive for of the top of head, forehead, right mosque, right frontal area, right side of the back of head, right temporal area, right occipital area, right base of the skull and face. 22:47 Skin: Positive for 22:47 Neuro: Positive for headache. Exam: 22:47 Constitutional: This is a well developed, well nourished patient who is awake, alert, chaparrita and in no acute distress. Head/Face: Normocephalic, atraumatic. Eyes: Pupils equal round and reactive to light, extra-ocular motions intact. Lids and lashes normal. Conjunctiva and sclera are non-icteric and not injected. Cornea within normal limits. Periorbital areas with no swelling, redness, or edema. ENT: Nares patent. No nasal discharge, no septal abnormalities noted. Tympanic membranes are normal and external auditory canals are clear. Oropharynx with no redness, swelling, or masses, exudates, or evidence of obstruction, uvula midline. Mucous membranes moist. Neck: Trachea midline, no thyromegaly or masses palpated, and no cervical lymphadenopathy. Supple, full range of motion without nuchal rigidity, or vertebral point tenderness. No Meningismus. Chest/axilla: Normal chest wall appearance and motion. Nontender with no deformity. No lesions are appreciated. Cardiovascular: Regular rate and rhythm with a normal S1 and S2. No gallops, murmurs, or rubs. Normal PMI, no JVD. No pulse deficits. Respiratory: Lungs have equal breath sounds bilaterally, clear to auscultation and percussion. No rales, rhonchi or wheezes noted. No increased work of breathing, no retractions or nasal flaring. Abdomen/GI: Soft, non-tender, with normal bowel sounds. No distension or tympany. No guarding or rebound. No evidence of tenderness throughout. Back: No spinal tenderness. No costovertebral tenderness. Full range of motion. MS/ Extremity: Pulses equal, no cyanosis. Neurovascular intact. Full, normal range of motion. Neuro: Awake and alert, GCS 15, oriented to person, place, time, and situation. Cranial nerves II-XII grossly intact. Motor strength 5/5 in all extremities. Sensory grossly intact. Cerebellar exam normal. Normal gait. Psych: Awake, alert, with orientation to person, place and time. Behavior, mood, and affect are within normal limits. 22:47 Skin: faint right temporal rash, scalp, no vesicles. Vital Signs: 19:03 BP 116 / 74; Pulse 93; Resp 16 S; Temp 98.1(TE); Pulse Ox 98% on R/A; Weight 70.31 kg aa5 (R); Height 5 ft. 7 in. (170.18 cm) (R); Pain 0/10; 20:54 BP 135 / 83; Pulse 79; Resp 17 S; Pulse Ox 100% on R/A; jd3 21:28 BP 126 / 70; Pulse 82; Resp 17 S; Pulse Ox 100% on R/A; jd3 22:22 BP 126 / 81; Pulse 83; Resp 15 S; Pulse Ox 99% on R/A; jd3 19:03 Body Mass Index 24.28 (70.31 kg, 170.18 cm) aa5 MDM: 19:27 Patient medically screened. [facility] 04/16 20:06 Order name: Basic Metabolic Panel 04/16 20:06 Order name: CBC with Diff 04/16 20:06 Order name: LFT's; Complete Time: 22:41 04/16 20:06 Order name: Magnesium; Complete Time: 22:41 chaparrita 04/16 20:06 Order name: NT PRO-BNP; Complete Time: 22:41 04/16 20:06 Order name: PT-INR; Complete Time: 22:41 04/16 20:06 Order name: Troponin (emerg Dept Use Only); Complete Time: 22:41 04/16 20:06 Order name: XRAY Chest (1 view); Complete Time: 22:41 04/16 20:06 Order name: CT Head Brain wo Cont; Complete Time: 22:41 [facility] 04/16 20:06 Order name: Urine Culture [facility] 04/16 20:07 Order name: Basic Metabolic Panel; Complete Time: 22:41 EDMS 04/16 20:07 Order name: CBC with Automated Diff; Complete Time: 22:41 EDMS 04/16 20:16 Order name: Head angio; Complete Time: 22:41 EDNE 04/16 20:54 Order name: Urine Dipstick--Ancillary (enter results); Complete Time: 22:41 ag4 04/16 20:06 Order name: EKG; Complete Time: 20:07 [facility] 04/16 20:06 Order name: Cardiac monitoring; Complete Time: 20:53 [facility] 04/16 20:06 Order name: EKG - Nurse/Tech; Complete Time: 20:53 [facility] 04/16 20:06 Order name: IV Saline Lock; Complete Time: 20:43 [facility] 04/16 20:06 Order name: Labs collected and sent; Complete Time: 20:43 [facility] 04/16 20:06 Order name: O2 Per Protocol; Complete Time: 20:19 [facility] 04/16 20:06 Order name: O2 Sat Monitoring; Complete Time: 20:18 [facility] 04/16 20:06 Order name: Urine Dipstick-Ancillary (obtain specimen); Complete Time: 20:53 [facility] Administered Medications: 20:53 Drug: NS 0.9% 1000 ml Route: IV; Rate: 125 ml/hr; Site: right antecubital; jd3 23:20 Follow up: Response: No adverse reaction; IV Status: Completed infusion jd3 22:58 Drug: Valtrex 1000 mg Route: PO; jd3 23:20 Follow up: Response: No adverse reaction jd3 22:58 Drug: [place] 5 mg-325 mg 1 tabs Route: PO; jd3 23:21 Follow up: Response: No adverse reaction jd3 Disposition: 04/16/18 22:51 Discharged to Home. Impression: Headache, Dizziness and giddiness. - Condition is Stable. - Discharge Instructions: Dizziness, General Headache Without Cause, Shingles, Shingles, [id number], Dizziness, [id number]. - Prescriptions for Fioricet with Codeine 50- 325-40-30 mg Oral capsule - take 1 capsule by ORAL route every 4 hours as needed not to exceed 6 capsules per 24hrs; 20 capsule. Valtrex 1 g Oral Tablet - take 1 tablet by ORAL route every 8 hours for 7 days; 21 tablet. - Medication Reconciliation Form, Thank You Letter, Antibiotic Education, Prescription Opioid Use form. - Follow up: Juana Avina MD; When: 2 - 3 days; Reason: Recheck today's complaints, Continuance of care, Re-evaluation by your physician. - Problem is new. - Symptoms have improved. Signatures: Dispatcher [employer] EDNE Riley Funes MD MD cha Calderon, Audri, RN RN aa5 Hernando Dillon RN RN jd3 Rickey Ortiz RN RN rr5 Corrections: (The following items were deleted from the chart) 23:24 22:51 04/16/2018 22:51 Discharged to Home. Impression: Headache; Dizziness and rr5 giddiness. Condition is Stable. Forms are Medication Reconciliation Form, Thank You Letter, Antibiotic Education, Prescription Opioid Use. Follow up: Juana Avina; When: 2 - 3 days; Reason: Recheck today's complaints, Continuance of care, Re-evaluation by your physician. Problem is new. Symptoms have improved. chaparrita
[2018-04-16] MEDS ORDERED: VALACYCLOVIR 500 MG TAB ONE (22:57)
[2018-04-16] MEDS ORDERED: HYDROCODONE/APAP 5/325 MG TAB ONE (23:02)
--- NOTE | 2018-04-17 07:37 | EKG ---
Test Date: 2018-04-16 Test Time: 20:51:00 Bird Tender: KALI MEASUREMENT RESULTS: Intervals: Rate: 79 GA: 224 QRSD: 90 QT: 394 QTc: 451 [place]: P: 69 GA: 224 QRS: 54 T: 72 INTERPRETIVE STATEMENTS: Sinus rhythm with 1st degree AV block Otherwise normal ECG Compared to ECG 03/31/2018 15:26:46 No significant changes Electronically Signed On 04-17-18 07:36:12 RETAIL CLIENT SOLUTIONS CONSULTANT by Vito Hein
[2018-04-17 08:30] VITALS: TEMP 98.1
[2018-04-17 08:54] VITALS: BP 126/81; O2SAT 99
== END 2018-04-16 23:24 | disposition home or self-care (01) ==
LOC: ER 18:43
DX: R51 Headache (principal); R42 Dizziness and giddiness; I44.0 Atrioventricular block, first degree; E78.5 Hyperlipidemia, unspecified; E07.9 Disorder of thyroid, unspecified; F41.9 Anxiety disorder, unspecified; F17.210 Nicotine dependence, cigarettes, uncomplicated; Z79.01 Long term (current) use of anticoagulants; Z79.899 Other long term (current) drug therapy; Z86.718 Personal history of other venous thrombosis and embolism
CPT/HCPCS: 36415; 70450; 70496; 71045; 80048; 80076; 81003; 83735; 83880; 84484; 85025; 85610; 87088; 93005; 96360; 96361; 99284; J7030; Q9967; 87086

== ENCOUNTER 2019-02-01 21:10 | Observation (INO) | payer OTHER ==
--- NOTE | 2019-02-01 22:00 | ER ---
Nurse's Notes [facility] Name: Kylie Kaplan Age: 68 yrs Sex: Female : 1950 Arrival Date: 02/01/2019 Time: 21:14 Bed 13 Private MD: Juana Avina Diagnosis: Acute embolism and thrombosis of unspecified deep veins of lower extremity;Dyspnea Presentation: 02/01 21:15 Presenting complaint: Patient states: "It my leg. my left hurts and it feel numb when I aj1 walk on it. Last March I had a blood clot and that's my main concern because it feels the same, but its not as bad." States that she does not have numbness unless she is walking. States that she was taking Xarelto, but her doctor took her off of it 2 weeks ago. Reports redness to her left calf. States that her pain starts up in her left groin and radiates down the left leg. Denies any recent injury to left leg. Transition of care: patient was not received from another setting of care. Onset of symptoms was February 01, 2019. Risk Assessment: Do you want to hurt yourself or someone else? Patient reports no desire to harm self or others. Initial Sepsis Screen: Does the patient meet any 2 criteria? HR > 90 bpm. No. Patient's initial sepsis screen is negative. Does the patient have a suspected source of infection? No. Patient's initial sepsis screen is negative. Care prior to arrival: None. 21:15 Method Of Arrival: Ambulatory aj1 21:15 Acuity: TONY 3 aj1 Triage Assessment: 21:22 General: Appears in no apparent distress. comfortable, Behavior is calm, cooperative, aj1 appropriate for age. Pain: Pain currently is 2 out of 10 on a pain scale. Neuro: Level of Consciousness is awake, alert, obeys commands. Cardiovascular: Patient's skin is warm and dry. Respiratory: Airway is patent Respiratory effort is even, unlabored, Respiratory pattern is regular, symmetrical. Historical: - Allergies: 21:22 PENICILLINS; aj1 - Home Meds: 21:22 atorvastatin 40 mg oral tab 2 tabs once daily [Active]; levothyroxine 150 mcg tab aj1 [Active]; Silenor 3 mg Oral tab once daily for insomnia [Active]; gabapentin 300 mg Oral cap twice a day [Active]; nortriptyline 75 mg Oral cap 2 caps once daily [Active]; Seroquel 200 mg Oral tab 1 tab 2 times per day [Active]; Ativan 1 mg Oral tab 1 tab 3 times per day [Active]; Lunesta oral oral [Active]; - PMHx: 21:22 Anxiety; DVT; Hyperlipidemia; Thyroid problem; aj1 - Immunization history:: Flu vaccine is not up to date. - Social history:: Smoking status: Patient/guardian denies using tobacco, Patient uses nicotine vape. - Ebola Screening: : Patient denies travel to an Ebola-affected area in the 21 days before illness onset. Screenin:10 Abuse screen: Denies threats or abuse. Denies injuries from another. Nutritional wh screening: No deficits noted. Tuberculosis screening: No symptoms or risk factors identified. Fall Risk None identified. Assessment: 22:10 General: Appears in no apparent distress. Behavior is calm, cooperative, appropriate wh for age. Pain: Complains of pain in left groin Pain radiates to left leg Pain currently is 5 out of 10 on a pain scale. Quality of pain is described as aching, Aggravated by increased activity. Neuro: Level of Consciousness is awake, alert, obeys commands, Oriented to person, place, time, situation, Appropriate for age. Cardiovascular: Heart tones S1 S2 Capillary refill < 3 seconds. Respiratory: Airway is patent Respiratory effort is even, unlabored, Respiratory pattern is regular, symmetrical, Breath sounds are clear bilaterally. GI: Abdomen is flat, non-distended. : No signs and/or symptoms were reported regarding the genitourinary system. EENT: No signs and/or symptoms were reported regarding the EENT system. Derm: Skin is intact, is healthy with good turgor, Skin is pink, warm \\T\\ dry. normal. Musculoskeletal: Circulation, motion, and sensation intact. 23:33 Reassessment: Patient appears in no apparent distress at this time. No changes from previously documented assessment. Patient and/or family updated on plan of care and expected duration. Pain level reassessed. Patient is alert, oriented x 3, equal unlabored respirations, skin warm/dry/pink. 02/02 00:33 Reassessment: Patient appears in no apparent distress at this time. No changes from previously documented assessment. Patient and/or family updated on plan of care and expected duration. Pain level reassessed. Patient is alert, oriented x 3, equal unlabored respirations, skin warm/dry/pink. Patient denies pain at this time. Vital Signs: 02/01 21:22 BP 123 / 81; Pulse 104; Resp 20; Temp 99.0; Pulse Ox 95% on R/A; Weight 83.01 kg (R); aj1 Height 5 ft. 7 in. (170.18 cm) (R); Pain 2/10; 22:30 BP 123 / 75; Pulse 93; Resp 18; Pulse Ox 100% on R/A; wh 23:58 BP 139 / 72; Pulse 96; Resp 18; Pulse Ox 100% on R/A; wh 21:22 Body Mass Index 28.66 (83.01 kg, 170.18 cm) aj1 ED Course: 21:14 Patient arrived in ED. mr 21:14 Juana Avina MD is Private Physician. mr 21:16 Riley Funes MD is Attending Physician. [facility] 21:18 Triage completed. aj1 21:22 Arm band placed on Patient placed in an exam room. aj1 21:45 Radiology exam delayed due to lab results not completed at this time. (BUN/Creatinine) kw1 IV insertion attempt and/or patient not having appropriate IV at this time. 21:54 Giovana Mosley is Primary Nurse. 21:54 XRAY Chest (1 view) In Process Unspecified. EDMS 21:58 Jose Maurice MD is Hospitalizing Provider. chaparrita 22:10 Patient has correct armband on for positive identification. Placed in gown. Bed in low wh position. Call light in reach. Side rails up X 1. crude oil treater on. Pulse ox on. NIBP on. 22:20 Inserted saline lock: 22 gauge in right forearm, using aseptic technique. Blood wh collected. 22:21 Radiology exam delayed due to lab results not completed at this time. (BUN/Creatinine). 2 22:47 US Extremity Venous W Compression Jacob In Process Unspecified. EDMS 22:48 Radiology exam delayed due to lab results not completed at this time. (BUN/Creatinine). vm2 02/02 00:32 No provider procedures requiring assistance completed. Patient admitted, IV remains in place. Administered Medications: 02/01 22:37 CANCELLED (Duplicate Order): NS 0.9% 1000 ml IV at 125 ml/hr continuous 22:55 Drug: Lovenox 1 mg/kg Route: Sub-Q; Site: right lower abdomen; 23:55 Follow up: Response: No adverse reaction 22:56 Drug: NS 0.9% 1000 ml Route: IV; Rate: 125 ml/hr; Site: right forearm; 23:55 Follow up: Response: No adverse reaction; IV Status: Infusion continued upon admission 22:56 Drug: Pepcid 20 mg Route: IVP; Site: right forearm; 23:56 Follow up: Response: No adverse reaction Outcome: 22:00 Decision to Hospitalize by Provider. chaparrita 02/02 00:32 Admitted to Tele accompanied by tech, family with patient, via stretcher, room 414, Report called to Graciela Samaniego Condition: stable Instructed on the need for admit. 00:33 Patient left the ED. Signatures: Dispatcher [employer] Crista Marin RN RN aj1 Anderson, Corey, MD MD cha Rivera, Janelle Verde Giovana Philip Kimberly kw1 Corrections: (The following items were deleted from the chart) 02/01 23:36 22:10 Pain: Complains of pain in left leg Pain does not radiate. Pain currently is 5 wh out of 10 on a pain scale. Aggravated by increased activity, wh
--- NOTE | 2019-02-01 22:01 | EDPHYS ---
Physician Documentation [facility] Name: Kylie Kaplan Age: 68 yrs Sex: Female : 1950 Arrival Date: 02/01/2019 Time: 21:14 Bed 13 Private MD: Juana Avina ED Physician Riley Funes HPI: 02/01 21:43 This 68 yrs old Female presents to ER via Ambulatory with complaints of Leg chaparrita Pain. 21:43 This 68 yrs old Female presents to ER via Ambulatory with complaints of Leg chaparrita Pain. 21:43 The patient presents with decreased range of motion, pain, swelling. chaparrita Historical: - Allergies: 21:22 PENICILLINS; aj1 - Home Meds: 21:22 atorvastatin 40 mg oral tab 2 tabs once daily [Active]; levothyroxine 150 mcg tab aj1 [Active]; Silenor 3 mg Oral tab once daily for insomnia [Active]; gabapentin 300 mg Oral cap twice a day [Active]; nortriptyline 75 mg Oral cap 2 caps once daily [Active]; Seroquel 200 mg Oral tab 1 tab 2 times per day [Active]; Ativan 1 mg Oral tab 1 tab 3 times per day [Active]; Lunesta oral oral [Active]; - PMHx: 21:22 Anxiety; DVT; Hyperlipidemia; Thyroid problem; aj1 - Immunization history:: Flu vaccine is not up to date. - Social history:: Smoking status: Patient/guardian denies using tobacco, Patient uses nicotine vape. - Ebola Screening: : Patient denies travel to an Ebola-affected area in the 21 days before illness onset. ROS: 21:44 Constitutional: Negative for fever, chills, and weight loss, Eyes: Negative for injury, chaparrita pain, redness, and discharge, ENT: Negative for injury, pain, and discharge, Neck: Negative for injury, pain, and swelling, Cardiovascular: Negative for chest pain, palpitations, and edema, Abdomen/GI: Negative for abdominal pain, nausea, vomiting, diarrhea, and constipation, Back: Negative for injury and pain, : Negative for injury, bleeding, discharge, and swelling, Skin: Negative for injury, rash, and discoloration, Neuro: Negative for headache, weakness, numbness, tingling, and seizure, Psych: Negative for depression, anxiety, suicide ideation, homicidal ideation, and hallucinations, Allergy/Immunology: Negative for hives, rash, and allergies, Endocrine: Negative for neck swelling, polydipsia, polyuria, polyphagia, and marked weight changes, Hematologic/Lymphatic: Negative for swollen nodes, abnormal bleeding, and unusual bruising. 21:44 Respiratory: Positive for shortness of breath. 21:44 MS/extremity: Positive for decreased range of motion, pain, swelling, tenderness, of the left leg. Exam: 21:44 Constitutional: This is a well developed, well nourished patient who is awake, alert, chaparrita and in no acute distress. Head/Face: Normocephalic, atraumatic. Eyes: Pupils equal round and reactive to light, extra-ocular motions intact. Lids and lashes normal. Conjunctiva and sclera are non-icteric and not injected. Cornea within normal limits. Periorbital areas with no swelling, redness, or edema. ENT: Nares patent. No nasal discharge, no septal abnormalities noted. Tympanic membranes are normal and external auditory canals are clear. Oropharynx with no redness, swelling, or masses, exudates, or evidence of obstruction, uvula midline. Mucous membranes moist. Neck: Trachea midline, no thyromegaly or masses palpated, and no cervical lymphadenopathy. Supple, full range of motion without nuchal rigidity, or vertebral point tenderness. No Meningismus. Chest/axilla: Normal chest wall appearance and motion. Nontender with no deformity. No lesions are appreciated. Cardiovascular: Regular rate and rhythm with a normal S1 and S2. No gallops, murmurs, or rubs. Normal PMI, no JVD. No pulse deficits. Respiratory: Lungs have equal breath sounds bilaterally, clear to auscultation and percussion. No rales, rhonchi or wheezes noted. No increased work of breathing, no retractions or nasal flaring. Abdomen/GI: Soft, non-tender, with normal bowel sounds. No distension or tympany. No guarding or rebound. No evidence of tenderness throughout. Back: No spinal tenderness. No costovertebral tenderness. Full range of motion. Female : Normal external genitalia. Skin: Warm, dry with normal turgor. Normal color with no rashes, no lesions, and no evidence of cellulitis. Neuro: Awake and alert, GCS 15, oriented to person, place, time, and situation. Cranial nerves II-XII grossly intact. Motor strength 5/5 in all extremities. Sensory grossly intact. Cerebellar exam normal. Normal gait. Psych: Awake, alert, with orientation to person, place and time. Behavior, mood, and affect are within normal limits. 21:44 Musculoskeletal/extremity: Extremities: decreased ROM, pain, swelling, tenderness, ROM: full active range of motion, full passive range of motion, Circulation is intact in all extremities. the left leg Compartment Syndrome exam of affected extremity: is normal. Vital Signs: 21:22 BP 123 / 81; Pulse 104; Resp 20; Temp 99.0; Pulse Ox 95% on R/A; Weight 83.01 kg (R); aj1 Height 5 ft. 7 in. (170.18 cm) (R); Pain 2/10; 22:30 BP 123 / 75; Pulse 93; Resp 18; Pulse Ox 100% on R/A; wh 23:58 BP 139 / 72; Pulse 96; Resp 18; Pulse Ox 100% on R/A; wh 21:22 Body Mass Index 28.66 (83.01 kg, 170.18 cm) aj1 MDM: 21:26 Patient medically screened. [facility] 21:47 Data reviewed: vital signs, nurses notes, lab test result(s), EKG, radiologic studies, [facility] CT scan, plain films, ultrasound. 02/01 21:42 Order name: Basic Metabolic Panel; Complete Time: 23:14 [facility] 02/01 21:42 Order name: CBC with Diff; Complete Time: 23:14 [facility] 02/01 21:42 Order name: LFT's; Complete Time: 23:14 [facility] 02/01 21:42 Order name: Magnesium; Complete Time: 23:14 [facility] 02/01 21:42 Order name: NT PRO-BNP; Complete Time: 23:14 [facility] 02/01 21:42 Order name: PT-INR; Complete Time: 23:14 [facility] 02/01 21:42 Order name: Troponin (emerg Dept Use Only); Complete Time: 23:14 [facility] 02/01 22:56 Order name: CBC with Automated Diff EDMS 02/01 22:56 Order name: CBC with Automated Diff EDMS 02/01 22:56 Order name: Comprehensive Metabolic Panel EDMS 02/01 22:56 Order name: Comprehensive Metabolic Panel EDMS 02/01 22:56 Order name: Protime (+INR) [facility] 02/01 22:56 Order name: Protime (+INR) [facility] 02/01 22:56 Order name: PTT, Activated Partial Thromb [facility] 02/01 21:42 Order name: XRAY Chest (1 view) [facility] 02/01 21:42 Order name: EKG; Complete Time: 21:43 [facility] 02/01 21:42 Order name: Cardiac monitoring; Complete Time: 22:19 [facility] 02/01 21:42 Order name: EKG - Nurse/Tech; Complete Time: 22:19 [facility] 02/01 21:42 Order name: IV Saline Lock; Complete Time: 22:19 [facility] 02/01 21:42 Order name: Labs collected and sent; Complete Time: 22:19 [facility] 02/01 21:42 Order name: CT Chest For PE Angio [facility] 02/01 21:43 Order name: US Extremity Venous W Compression Jacob [facility] 02/01 22:56 Order name: CONS Pharmacy Consult [facility] 02/01 22:56 Order name: NPO [facility] 02/01 22:57 Order name: PTT, Activated Partial Thromb [facility] 02/01 23:57 Order name: Urine Dipstick--Ancillary (enter results) [facility] 02/01 21:42 Order name: O2 Per Protocol; Complete Time: 22:19 [facility] 02/01 21:42 Order name: O2 Sat Monitoring; Complete Time: 22:19 [facility] 02/01 21:42 Order name: Urine Dipstick-Ancillary (obtain specimen); Complete Time: 23:56 [facility] Administered Medications: 22:37 CANCELLED (Duplicate Order): NS 0.9% 1000 ml IV at 125 ml/hr continuous 22:55 Drug: Lovenox 1 mg/kg Route: Sub-Q; Site: right lower abdomen; 23:55 Follow up: Response: No adverse reaction 22:56 Drug: NS 0.9% 1000 ml Route: IV; Rate: 125 ml/hr; Site: right forearm; wh 23:55 Follow up: Response: No adverse reaction; IV Status: Infusion continued upon admission 22:56 Drug: Pepcid 20 mg Route: IVP; Site: right forearm; 23:56 Follow up: Response: No adverse reaction Disposition: 02/01/19 22:00 Hospitalization ordered by Jose Maurice for Inpatient Admission. Preliminary diagnosis are Acute embolism and thrombosis of unspecified deep veins of lower extremity, Dyspnea. - Bed requested for Telemetry/MedSurg (Inpatient). - Status is Inpatient Admission. - Condition is Stable. - Problem is new. - Symptoms have improved. UTI on Admission? No Signatures: Dispatcher [employer] EDCrista Alcantara RN RN aj1 Mary Kay Winter RN Riley Allen MD MD cha [facility] Corrections: (The following items were deleted from the chart) 22:37 21:42 NS 0.9% 1000 ml IV at 125 ml/hr continuous ordered. [facility] 23: 22:00 Hospitalization Ordered by Jose Maurice MD for Inpatient Admission. Preliminary diagnosis is Acute embolism and thrombosis of unspecified deep veins of lower extremity; Dyspnea. Bed requested for Telemetry/MedSurg (Inpatient). Status is Inpatient Admission. Condition is Stable. Problem is new. Symptoms have improved. UTI on Admission? No. [facility] 02/02 00:33 02/01 23:01 02/01/2019 22:00 Hospitalization Ordered by Jose Maurice MD for Inpatient Admission. Preliminary diagnosis is Acute embolism and thrombosis of unspecified deep veins of lower extremity; Dyspnea. Bed requested for Telemetry/MedSurg (Inpatient). Status is Inpatient Admission. Condition is Stable. Problem is new. Symptoms have improved. UTI on Admission? No. mw
[2019-02-01] MEDS ORDERED: NA CHLORIDE 0.9% 1,000 ML ONE (22:25)
[2019-02-01] MEDS ORDERED: ENOXAPARIN 80 MG/0.8 ML SQ ONE (22:25)
[2019-02-01] MEDS ORDERED: FAMOTIDINE 20 MG/2 ML VIAL IV ONE (22:25)
[2019-02-01 22:42] LABS: Absolute Lymphocytes (CBC) 3.3 K/uL (0.7-4.9); Basophils % 0.8 % (0-1.3); Hematocrit 44.5 % (36.0-45.0); Lymphocytes % 31.7 % (15.3-44.8); MPV 7.5 fL (7.6-11.3); RBC Red Blood Cell Count 4.83 M/uL (3.86-4.86)
[2019-02-01 22:43] LABS: Protime INR 0.98
[2019-02-01] MEDS ORDERED: ACETAMINOPHEN 500 MG TAB PO PRN (22:53)
[2019-02-01] MEDS ORDERED: MORPHINE 4 MG/ML SYR IV PRN (22:53)
[2019-02-01] MEDS ORDERED: ONDANSETRON 4 MG/2 ML VIAL IV PRN (22:53)
[2019-02-01] MEDS: NA CHLORIDE 0.9% 1,000 ML IV SCH (23:00)
[2019-02-01 23:11] LABS: ALT/SGPT 34 U/L (12-78); AST/SGOT 22 U/L (15-37); Albumin 3.5 g/dL (3.4-5.0); Alkaline Phosphatase 121 U/L (45-117); BUN Blood Urea Nitrogen 12 mg/dL (7-18); Bicarbonate 28 mmol/L (21-32); Bilirubin Direct < 0.1 mg/dL (0-0.2); Bilirubin Total 0.3 mg/dL (0.2-1.0); Glucose Level 94 mg/dL (74-106); Magnesium 2.2 mg/dL (1.8-2.4); NT PRO-BNP 20 pg/mL (<125); Potassium 4.2 mmol/L (3.5-5.1); Protein, Total 7.2 g/dL (6.4-8.2); Sodium Level 140 mmol/L (136-145); Troponin (Emerg Dept Use Only) < 0.02 ng/mL (0.0-0.045)
[2019-02-02 01:05] LABS: Urine Blood NEGATIVE (NEG); Urine Glucose NEGATIVE (NEG); Urine Protein NEGATIVE (NEG); Urine Specific Gravity 1.025 (1.005-1.030); Urine pH 5.5 (5.0-7.0)
[2019-02-02 01:08] VITALS: BMI 29.3
[2019-02-02 06:33] LABS: Absolute Lymphocytes (CBC) 3.7 K/uL (0.7-4.9); Basophils % 1.2 % (0-1.3); Hematocrit 39.1 % (36.0-45.0); Lymphocytes % 43.5 % (15.3-44.8); MPV 7.7 fL (7.6-11.3); RBC Red Blood Cell Count 4.26 M/uL (3.86-4.86)
[2019-02-02 06:34] LABS: Protime INR 1.04
[2019-02-02 06:44] LABS: Bilirubin Total 0.5 mg/dL (0.2-1.0); Potassium 4.1 mmol/L (3.5-5.1); Protein, Total 6.3 g/dL (6.4-8.2)
--- NOTE | 2019-02-02 08:01 | RAD REPORT ---
EXAM DESCRIPTION: USExtrem Venous W Compress Bil02/01/2019 10:46 pm CLINICAL HISTORY: Bilateral leg swelling COMPARISON: January 15, 2019 FINDINGS: The right common femoral, superficial femoral, popliteal and posterior tibial veins bilate rally are compressible and demonstrate augmentation. Echogenic material consistent with acute thrombus is present within the left common femoral, left sup erficial femoral and left popliteal veins. The veins are not compressible The thrombus is occlusive IMPRESSION: Acute thrombus within the left common femoral, left superficial femoral and left poplite al veins
--- NOTE | 2019-02-02 08:08 | P.HP ---
Certification for Inpatient Patient admitted to: Observation With expected LOS: <2 Midnights Patient will require the following post-hospital care: None Practitioner: I am a practitioner with admitting privileges, knowledge of patient current condition, hospital course, and medical plan of care. Services: Services provided to patient in accordance with Admission requirements found in Title 42 Section 412.3 of the Code of Federal Regulations Patient History Date of Service: 02/01/19 Reason for admission: Left lower extremity extensive DVT History of Present Illness: Patient is a 68-year-old female with a prior medical history of a DVT of the left lower extremity. Patient has a history of chronic pain syndrome and has been having swelling in the left leg. She actually had a Doppler done 2 weeks ago which surprisingly came back negative. This was repeated on this admission and she has an extensive DVT of the left common femoral, left popliteal, and left posterior tibial vein. Patient will be admitted to the hospital for anti coagulation. Last year she was on Xarelto. This was stopped a few months ago. She had been doing well up until a month ago when she noticed swelling recurring. That is why the Doppler was repeated 2 weeks ago. She may need further will hypercoagulable workup as well as malignancy workup. This can be initiated in our hospital continued as an outpatient. Patient also denies any issues with bleeding while on the Xarelto. At this time, she will be admitted to the hospital under observation status for further evaluation. Allergies Penicillins Allergy (Severe, Verified 02/02/19 01:02) Hives/Rash Home Medications: Eszopiclone 3 mg PO BEDTIME 03/31/18 LORazepam [Ativan*] 0.5 mg PO BID 03/31/18 Levothyroxine Sodium 150 mcg PO BEDTIME 03/31/18 Nortriptyline HCl [Pamelor] 150 mg PO BEDTIME 03/31/18 Quetiapine Fumarate [Seroquel] 200 mg PO BEDTIME 03/31/18 Atorvastatin Calcium [Lipitor] 40 mg PO BEDTIME 02/02/19 Gabapentin 1 cap PO QID 02/02/19 - Past Medical/Surgical History Has patient received pneumonia vaccine in the past: No Diabetic: No -: Insomnia -: Hypothyroidism -: Chronic body pain -: Anxiety -: High Cholesterol -: dysphagia because anxiety -: Tubal Ligation -: Tonsillectomy - Family History Father Medical History: Heart disease, Other (see notes) Notes: COPD; emphysema Mother Medical History: Cancer, Other (see notes) Notes: lung and cervical CA - Social History Smoking Status: Former smoker Alcohol use: No CD- Drugs: No Caffeine use: Yes Place of Residence: Home Review of Systems 10-point ROS is otherwise unremarkable Physical Examination - Vital Signs Temperature: 97.5 F Blood Pressure: 96/56 Pulse: 95 Respirations: 18 Pulse Ox (%): 100 - Physical Exam General: Alert, In no apparent distress, Oriented x3 HEENT: Atraumatic, PERRLA, Mucous membr. moist/pink, EOMI, Sclerae nonicteric Neck: Supple, 2+ carotid pulse no bruit, No LAD, Without JVD or thyroid abnormality Respiratory: Clear to auscultation bilaterally, Normal air movement Cardiovascular: Regular rate/rhythm, Normal S1 S2, No murmurs Gastrointestinal: Normal bowel sounds, Soft and benign, Non-distended, No tenderness Musculoskeletal: No clubbing, Swelling, Tenderness Integumentary: No rashes, Tenderness/swelling Neurological: Normal gait, Normal speech, Normal strength at 5/5 x4 extr, Normal tone, Sensation intact, Cranial nerves 3-12 intact, Normal affect Lymphatics: No axilla or inguinal lymphadenopathy - Studies Laboratory Data (last 24 hrs) 02/01/19 22:31: PT 11.6, INR 0.98 02/01/19 22:31: WBC 10.3, Hgb 15.1 H, Hct 44.5, Plt Count 196 02/01/19 22:31: Sodium 140, Potassium 4.2, BUN 12, Creatinine 0.97, Glucose 94, Magnesium 2.2, Total Bilirubin 0.3, AST 22, ALT 34, Alkaline Phosphatase 121 H Assessment & Plan - Problems (Diagnosis) (1) Left leg DVT Current Visit: Yes Status: Acute (2) Chronic pain syndrome Current Visit: Yes Status: Acute (3) Depression Current Visit: No Status: Chronic Qualifiers: (4) Hyperlipidemia Current Visit: No Status: Chronic Qualifiers: (5) Hypothyroidism Current Visit: No Status: Chronic Qualifiers: - Plan Plan: 1. Continue Lovenox for now. Patient was on Xarelto in the past. Can probably switch to Xarelto this evening. 2. Hypercoagulable workup 3. Follow with PCP for preventive screening for any malignancies 4. Pain control 5. Continue antidepressants 6. Monitor hemodynamics closely 7. GI and DVT prophylaxis Discharge Plan: Home Plan to discharge in: 48 Hours - Advance Directives Does patient have a Living Will: No Does patient have a Durable POA for Healthcare: No - Code Status/Comfort Care Code Status Assessed: Yes Code Status: Full Code Critical Care: No Time Spent Managing PTS Care (In Minutes): 45
[2019-02-02] MEDS: ENOXAPARIN 80 MG/0.8 ML SQ SCH ×2 (09:03→20:54)
[2019-02-02 10:06] LABS: Folic Acid, (Folate) > 20.0 ng/mL (3.1-17.5)
--- NOTE | 2019-02-02 10:12 | RAD REPORT ---
EXAM DESCRIPTION: Jj Single View02/01/2019 9:55 pm CLINICAL HISTORY: Chest pain COMPARISON: 2014 FINDINGS: The area scarring within the left base is unchanged The lungs appear clear of acute infiltrate. The heart is normal size IMPRESSION: No acute abnormalities displayed
[2019-02-02 10:16] LABS: Blood Morphology Comment NOT SEEN (NOT SEEN); Platelet Estimate ADEQ
[2019-02-02] MEDS: NA CHLORIDE 0.9% 1,000 ML IV SCH (11:24)
--- NOTE | 2019-02-02 12:29 | EKG ---
Test Date: 2019-02-01 Test Time: 21:58:48 Disc Pad Plate Filler: OLGA LIDIA MEASUREMENT RESULTS: Intervals: Rate: 96 AK: 266 QRSD: 88 QT: 338 QTc: 427 [place]: P: 68 AK: 266 QRS: 71 T: 75 INTERPRETIVE STATEMENTS: Sinus rhythm with 1st degree AV block Otherwise normal ECG Compared to ECG 04/16/2018 20:51:00 No significant changes Electronically Signed On 02-02-19 12:28:53 CDT by Damon Vargas
[2019-02-02] MEDS ORDERED: PNEUMOCOCCAL VACCINE 0.5 ML IMVAC ONE (13:00)
--- NOTE | 2019-02-02 15:03 | P.PN ---
Subjective Date of Service: 02/02/19 Chief Complaint: Left lower extremity extensive DVT Subjective: No new changes, No C/O voiced Patient denies any fever or shortness of breath or chest pain or lower extremity pain. Physical Examination - Vital Signs Temperature: 97.6 F Blood Pressure: 112/69 Pulse: 88 Respirations: 18 Pulse Ox (%): 95 - Physical Exam General: Alert, In no apparent distress, Oriented x3 HEENT: Mucous membr. moist/pink Neck: Supple, JVD not distended Respiratory: Clear to auscultation bilaterally, Normal air movement Cardiovascular: No edema, Regular rate/rhythm, Normal S1 S2, No murmurs Capillary refill: <2 Seconds Gastrointestinal: Normal bowel sounds, Soft and benign, Non-distended, No tenderness Musculoskeletal: Swelling (Left lower extremity compared to the right.) Integumentary: No rashes, No erythema Neurological: Normal speech, Normal strength at 5/5 x4 extr, Normal affect - Studies Laboratory Data (last 24 hrs) 02/01/19 22:31: PT 11.6, INR 0.98 02/01/19 22:31: WBC 10.3, Hgb 15.1 H, Hct 44.5, Plt Count 196 02/01/19 22:31: Sodium 140, Potassium 4.2, BUN 12, Creatinine 0.97, Glucose 94, Magnesium 2.2, Total Bilirubin 0.3, AST 22, ALT 34, Alkaline Phosphatase 121 H Assessment And Plan - Current Problems (Diagnosis) (1) Chronic pain syndrome Current Visit: Yes Status: Acute (2) Left leg DVT Current Visit: Yes Status: Acute - Plan Continue full-dose Lovenox. Will transition to Eliquis on discharge. Morphine IV p.r.n. for pain Hypercoagulable workup results are pending to be followed as an outpatient. CTA thorax is negative for pulmonary embolus. Bedrest for 24 hrs and then increase activity as tolerated.
[2019-02-02] MEDS ORDERED: ESZOPICLONE 1 MG TAB PO PRN (18:19)
[2019-02-02] MEDS: GABAPENTIN 300 MG CAP PO SCH (20:49)
[2019-02-02] MEDS: LORAZEPAM 0.5 MG TABLET PO SCH (20:51)
[2019-02-02] MEDS ORDERED: QUETIAPINE 100MG TAB PO SCH (21:00)
[2019-02-02] MEDS ORDERED: LEVOTHYROXINE SOD 0.075 MG TAB PO SCH (21:00)
[2019-02-02] MEDS ORDERED: HOME MED 1 EA UNK (Eszopiclone [Eszopiclone] 3 MG) PO SCH (21:00)
[2019-02-02] MEDS ORDERED: ATORVASTATIN 40 MG TAB PO SCH (21:00)
[2019-02-02] MEDS ORDERED: NORTRIPTYLINE HCL 25 MG CAP PO SCH (21:00)
[2019-02-02 21:20] LABS: RPR (Rapid Plasma Reagin) NON-REACT (NON-REACT)
[2019-02-02 23:31] VITALS: O2SAT 97
[2019-02-03] MEDS: NA CHLORIDE 0.9% 1,000 ML IV SCH (01:40)
[2019-02-03] MEDS: ENOXAPARIN 80 MG/0.8 ML SQ SCH (08:17)
[2019-02-03] MEDS: GABAPENTIN 300 MG CAP PO SCH (08:17)
[2019-02-03] MEDS: LORAZEPAM 0.5 MG TABLET PO SCH (08:18)
[2019-02-03 09:54] VITALS: BP 102/66; TEMP 97.7
--- NOTE | 2019-02-03 10:07 | P.DS ---
Admission Date: 02/01/19 Discharge Date: 02/03/19 Disposition: ROUTINE DISCHARGE Discharge Condition: FAIR Reason for Admission: Left lower extremity extensive DVT Consultations: None Procedures: None - Problems (1) Chronic pain syndrome Status: Acute (2) Left leg DVT Status: Acute Brief History of Present Illness: 68-year-old woman with a history of chronic pain syndrome presented to the ED with a complaint of left lower extremity swelling. Patient has a history of DVT in the left leg. Her PCP discontinued her Xarelto about 2 weeks ago. Patient reports his venous Doppler was negative for DVT at that time. She states she developed left lower extremity swelling 2 weeks after she stopped taking the Xarelto. Venous Doppler of the lower extremities done in the ED reported DVT extending from the femoral vein to the popliteal vein. Patient was hospitalized for further management of acute DVT. Hospital Course: Patient was treated with full-dose Lovenox and 24 hour bedrest. CTA thorax was negative for pulmonary embolism. Patient denied any pain. She also denied any shortness of breath. She is deemed clinically stable for discharge. Patient is discharged with Xarelto regimen for acute DVT. Vital Signs/Physical Exam: Temp Pulse Resp BP Pulse Ox 97.7 F 90 18 102/66 98 02/03/19 08:00 02/03/19 08:00 02/03/19 08:00 02/03/19 08:00 02/03/19 08:00 General: Alert, In no apparent distress, Oriented x3 HEENT: Mucous membr. moist/pink Neck: Supple, JVD not distended Respiratory: Clear to auscultation bilaterally, Normal air movement Cardiovascular: No edema, Regular rate/rhythm, Normal S1 S2, No murmurs Capillary refill: <2 Seconds Gastrointestinal: Normal bowel sounds, Soft and benign, Non-distended, No tenderness Musculoskeletal: No erythema, Swelling (Left leg swelling) Integumentary: No rashes, Erythema (Mild erythema- left leg) Neurological: Normal speech, Normal strength at 5/5 x4 extr Laboratory Data at Discharge: WBC 8.5 K/uL (4.3-10.9) D 02/02/19 06:00 Hgb 13.6 g/dL (12.0-15.0) 02/02/19 06:00 Hct 39.1 % (36.0-45.0) 02/02/19 06:00 Plt Count 200 K/uL (152-406) 02/02/19 06:00 PT 12.3 SECONDS (9.5-12.5) 02/02/19 06:00 INR 1.04 02/02/19 06:00 APTT 40.4 SECONDS (24.3-36.9) H 02/02/19 06:00 Sodium 141 mmol/L (136-145) 02/02/19 06:00 Potassium 4.1 mmol/L (3.5-5.1) 02/02/19 06:00 BUN 12 mg/dL (7-18) 02/02/19 06:00 Creatinine 0.93 mg/dL (0.55-1.3) 02/02/19 06:00 Glucose 99 mg/dL (74-106) 02/02/19 06:00 Magnesium 2.2 mg/dL (1.8-2.4) 02/01/19 22:31 Total Bilirubin 0.5 mg/dL (0.2-1.0) 02/02/19 06:00 AST 20 U/L (15-37) 02/02/19 06:00 ALT 30 U/L (12-78) 02/02/19 06:00 Alkaline Phosphatase 105 U/L (45-117) 02/02/19 06:00 Imagings Data: Venous Doppler of lower extremity:Acute thrombus within the left common femoral , left superficial femoral and left popliteal veins Home Medications: Eszopiclone 3 mg PO BEDTIME 03/31/18 LORazepam [Ativan*] 0.5 mg PO BID 03/31/18 Levothyroxine Sodium 150 mcg PO BEDTIME 03/31/18 Nortriptyline HCl [Pamelor] 150 mg PO BEDTIME 03/31/18 Quetiapine Fumarate [Seroquel] 200 mg PO BEDTIME 03/31/18 Atorvastatin Calcium [Lipitor] 40 mg PO BEDTIME 02/02/19 Gabapentin 1 cap PO QID 02/02/19 Rivaroxaban [Xarelto] 15 mg PO BID 21 Days #42 tablet 02/03/19 Rivaroxaban [Xarelto] 20 mg PO DAILY 30 Days #60 tab 02/03/19 New Medications: Rivaroxaban [Xarelto] 20 mg PO DAILY 30 Days #60 tab Rivaroxaban [Xarelto] 15 mg PO BID 21 Days #42 tablet Patient Discharge Instructions: Follow up with PCP within 2 weeks. Fall precautions Diet: AHA Activity: Fall precautions Followup: Juana Avina MD [Primary Care Provider] - 1-2 Weeks (primary care physician - call to schedule an appointment) Time spent managing pt's care (in minutes): 25
--- NOTE | 2019-02-04 13:03 | RAD REPORT ---
EXAM DESCRIPTION: CT - Chest For Pe Angio - 02/02/2019 7:12 am CLINICAL HISTORY: Shortness of breath. COMPARISON: None. TECHNIQUE: CT angiogram of the chest with IV contrast. 3-D MIP images were obtained in coronal and s agittal reconstructions. This exam was performed according to our departmental dose-optimization prog lynsey, which includes automated exposure control, adjustment of the mA and/or kV according to patient s ize and/or use of iterative reconstruction technique. FINDINGS: No filling defects are seen in the pulmonary trunk or the left and right main pulmonary ar selene. There is limited evaluation of the segmental branches due to motion artifact. The thyroid gland is normal. No mediastinal or hilar adenopathy. The heart size is normal without per icardial effusion. The thoracic aorta is normal caliber. No consolidation, pleural effusion, or pneum othorax is identified. The visualized upper abdomen demonstrates no acute findings. No acute osseous findings are seen. IMPRESSION: No central pulmonary embolism. No aortic dissection or aneurysm. Electronically signed by: Daniel Gagnon MD 02/01/2019 11:54 PM CDT Due to temporary technical issues with the PACS/Fluency reporting system, reports are being signed by the in house radiologist as a courtesy to ensure prompt reporting. The interpreting radiologist is f ully responsible for the content of the report.
[2019-02-04 17:02] LABS: Albumin, (SPE) 3.2 g/dL (3.8-4.8); Alpha-1-Globulins 0.3 g/dL (0.2-0.3); Alpha-2-Globulins 0.9 g/dL (0.5-0.9); Gamma Globulins 0.8 g/dL (0.8-1.7); INTERPRETATION REPORT
[2019-02-05 12:50] LABS: Protein C Antigen 101 % (70-140)
[2019-02-07 10:56] LABS: Prothrombin Gene Analysis Test REPORT
--- OUTSIDE RECORDS SUMMARY | 2019-02-17 11:44 | XMS REPORT ---
:1950 [facility] Address [address] [place] [address] [address] [place] [address] Care Team Providers Name Role Phone Unavailable Unavailable Unavailable Problems This patient has no known problems. Allergies, Adverse Reactions, Alerts This patient has no known allergies or adverse reactions. Medications This patient has no known medications.
== END 2019-02-03 11:41 | disposition home or self-care (01) ==
LOC: ER 21:10 → ERHOLD 23:29 → 4TH 02-02 00:09
PROVIDERS: ADMIT Hospitalist; ATTEND Internal Medicine
DX: I82.402 Acute embolism and thrombosis of unspecified deep veins of left lower extremity (principal); G89.4 Chronic pain syndrome; E03.9 Hypothyroidism, unspecified; F41.9 Anxiety disorder, unspecified; E78.00 Pure hypercholesterolemia, unspecified; F32.9 Major depressive disorder, single episode, unspecified; E78.5 Hyperlipidemia, unspecified; G47.00 Insomnia, unspecified; Z28.21 Immunization not carried out because of patient refusal; Z87.891 Personal history of nicotine dependence
CPT/HCPCS: 96361; 93005; 85025 ×2; 80048; 36415; 83735; 85610 ×2; 80076; 86592; 85730; 81003; 84484; 82746; 82607; 80053; 81241; 81240; 82306; 83880; 83090; 85300; 85302; 85305; 85306; 86021 ×2; 86147 ×2; 84165; 71275; 71045; 93970; 96372; 96374; 99285; Q9967; J1650 ×4; J7030 ×4; G0378 ×3; J2405

== ENCOUNTER 2023-01-29 22:23 | Emergency (ER) | payer OTHER ==
--- OUTSIDE RECORDS SUMMARY | 2023-01-29 22:27 | XMS REPORT | Continuity of Care Document ---
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 Out reac BEDTIME BEDTIME AT BEDTIME h Program quetiapine quetiapine No quetiapine [place] 400 mg 400 mg 400 mg da tablet TAKE tablet TAKE tablet [facility] 1 TABLET BY 1 TABLET BY TAKE 1 al MOUTH MOUTH TABLET BY Health EVERYDAY AT EVERYDAY AT MOUTH Outreac BEDTIME BEDTIME EVERYDAY h AT BEDTIME Program atorvastati atorvastati No atorvastat [place] n 40 mg n 40 mg in 40 mg da tablet TAKE tablet TAKE tablet [facility] 1 TABLET BY 1 TABLET BY TAKE 1 al MOUTH EVERY MOUTH EVERY TABLET BY Health DAY IN THE DAY IN THE MOUTH Ou treac EVENING EVENING EVERY DAY h IN THE Program EVENING cefdinir cefdinir No cefdinir [place] 250 mg/5 mL 250 mg/5 mL 250 mg/5 da oral oral mL oral [facility] suspension suspension suspension al GIVE 6ML BY GIVE 6ML BY GIVE 6ML Health MOUTH TWO MOUTH TWO BY MOUTH O utreac TIMES DAILY TIMES DAILY TWO TIMES h FOR 10 DAYS FOR 10 DAYS DAILY FOR Program 10 DAYS donepezil 5 donepezil 5 No donepezil [place] mg tablet mg tablet 5 mg da TAKE 1 TAKE 1 tablet [facility] TABLET BY TABLET BY TAKE 1 al MOUTH EVERY MOUTH EVERY TABLET BY Health DAY AT DAY AT MOUTH Outreac BEDTIME FOR BEDTIME FOR EVERY DAY h 90 DAYS 90 DAYS AT BEDTIME Pro gram FOR 90 DAYS Eliquis 5 Eliquis 5 No Eliquis 5 [place] mg tablet mg tablet mg tablet da TAKE 1 TAKE 1 TAKE 1 [facility] TABLET BY TABLET BY TABLET BY al MOUTH TWICE MOUTH TWICE MOUTH Health A DAY A DAY TWICE A Outreac DAY h Program eszopiclone eszopiclone No eszopiclon [place] 3 mg tablet 3 mg tablet e 3 mg da TAKE 1 TAKE 1 tablet [facility] TABLET BY TABLET BY TAKE 1 al MOUTH MOUTH TABLET BY Health IMMEDIATELY IMMEDIATELY MOUTH Outreac BEFORE BEFORE IMMEDIATEL h BEDTIME BEDTIME Y BEFORE Program NEEDED FOR NEEDED FOR BEDTIME SLEEP ONCE SLEEP ONCE NEEDED FOR A DAY A DAY SLEEP ONCE A DAY gabapentin gabapentin No gabapentin [place] 300 mg 300 mg 300 mg da capsule capsule capsule [facility] p TAKE 1 TAKE 1 TAKE 1 al CAPSULE BY CAPSULE BY CAPSULE BY Health MOUTH 4 MOUTH 4 MOUTH 4 Outrea c TIMES A DAY TIMES A DAY TIMES A h WITH MEALS WITH MEALS DAY WITH Program MEALS levothyroxi levothyroxi No levothyrox [place] 100 mcg ne 100 mcg ine 100 da tablet TAKE tablet TAKE mcg tablet [facility] 1 TABLET BY 1 TABLET BY TAKE 1 al MOUTH EVERY MOUTH EVERY TABLET BY Health DAY IN THE DAY IN THE MOUTH Ou treac MORNING ON MORNING ON EVERY DAY h EMPTY EMPTY IN THE Program STOMACH FOR STOMACH FOR MORNING ON 90 DAYS EMPTY STOMACH FOR 90 DAYS levothyroxi levothyroxi No levothyrox [place] 112 mcg ne 112 mcg ine 112 da tablet TAKE tablet TAKE mcg tablet [facility] 1 TABLET BY 1 TABLET BY TAKE 1 al MOUTH EVERY MOUTH EVERY TABLET BY Health MORNING ON MORNING ON MOUTH Ou treac AN EMPTY AN EMPTY EVERY h STOMACH STOMACH MORNING ON Pro gram AN EMPTY STOMACH lorazepam lorazepam No lorazepam [place] 0.5 mg 0.5 mg 0.5 mg da tablet TAKE tablet TAKE tablet [facility] 1 TABLET BY 1 TABLET BY TAKE 1 al MOUTH THREE MOUTH THREE TABLET BY Health TIMES A DAY TIMES A DAY MOUTH Outreac FOR 30 DAYS FOR 30 DAYS THREE h TIMES A Program DAY FOR 30 DAYS neomycin-po neomycin-po No neomycin-p [place] lymyxin-hyd lymyxin-hyd olymyxin-h da rocort 3.5 rocort 3.5 ydrocort [facility] mg/mL-10,00 mg/mL-10,00 3.5 a l 0 unit/mL-1 0 unit/mL-1 mg/mL-10,0 Health % ear % ear 00 Outreac solution solution unit/mL-1 h INSTILL 4 INSTILL 4 % ear Prog lynsey DROPS INTO DROPS INTO solution AFFECTED AFFECTED INSTILL 4 EAR 3 TIMES EAR 3 TIMES DROPS INTO A DAY A DAY AFFECTED EAR 3 TIMES A DAY nitrofurant nitrofurant No nitrofuran [place] oin toin da monohydrate monohydrate monohydrat [facility] /macrocryst /macrocryst e/macrocry al als 100 mg als 100 mg stals 100 Health capsule capsule mg capsule Out reac TAKE 1 TAKE 1 TAKE 1 h CAPSULE BY CAPSULE BY CAPSULE BY Program MOUTH EVERY MOUTH EVERY MOUTH 12 HOURS 12 HOURS EVERY 12 FOR 7 DAYS FOR 7 DAYS HOURS FOR WITH FOOD WITH FOOD 7 DAYS WITH FOOD nortriptyli nortriptyli No nortriptyl [place] 75 mg ne 75 mg ine 75 mg da capsule capsule capsule [facility] p TAKE 2 TAKE 2 TAKE 2 al CAPSULES BY CAPSULES BY CAPSULES Health MOUTH AT MOUTH AT BY MOUTH Out reac BEDTIME BEDTIME AT BEDTIME h Program quetiapine quetiapine No quetiapine [place] 400 mg 400 mg 400 mg da tablet TAKE tablet TAKE tablet [facility] 1 TABLET BY 1 TABLET BY TAKE 1 al MOUTH EVERY MOUTH EVERY TABLET BY Health DAY AT DAY AT MOUTH Outreac BEDTIME BEDTIME EVERY DAY h AT BEDTIME Program Vital Signs Vital Name Observation Time Observation Value Comments Source Weight 2022-11-30 18:24:00 65.63 KG Height 2022-11-30 10:47:00 170.18 CM Weight 2022-11-30 10:47:00 65.63 KG Systolic blood 2022-10-21 18:34:00 133 mm[Hg] Univer sity of pressure [facility] Diastolic blood 2022-10-21 18:34:00 81 mm[Hg] Unive rsity of [facility] Heart rate 2022-10-21 18:34:00 94 /min [facility] Body temperature 2022-10-21 18:34:00 36.89 Sherrie [facility] Respiratory rate 2022-10-21 18:34:00 18 /min [facility] Body height 2022-10-21 18:34:00 172.7 cm [facility] Body weight 2022-10-21 18:34:00 65.772 kg [facility] BMI 2022-10-21 18:34:00 22.05 kg/m2 [facility] Oxygen saturation in 2022-10-21 18:34:00 97 /min [facility] blood by [facility] Pulse oximetry Branch BP Diastolic 2022-08-23 00:00:00 85 mm[Hg] [place] [facility] Height 2022-08-23 00:00:00 67 [in_i] [place] [facility] BMI (Body Mass 2022-08-23 00:00:00 22[facility]9 [facility] BP Systolic 2022-08-23 00:00:00 121 mm[Hg] [place] [facility] Body Weight 2022-08-23 00:00:00 146 [lb_av] [place] [facility] BP Diastolic 2022-05-19 00:00:00 84 mm[Hg] [place] [facility] Height 2022-05-19 00:00:00 67 [in_i] [place] [facility] BMI (Body Mass 2022-05-19 00:00:00 25.8 kg/m2 [place] counter former Index) [facility] BP Systolic 2022-05-19 00:00:00 131 mm[Hg] [place] [facility] Body Weight 2022-05-19 00:00:00 165 [lb_av] [place] [facility] BP Diastolic 2021-11-09 00:00:00 83 mm[Hg] [place] [facility] BP Systolic 2021-11-09 00:00:00 125 mm[Hg] [place] [facility] Body Weight 2021-11-09 00:00:00 176.2 [lb_av] [place] [facility] Height 2019-08-24 00:00:00 67 [in_i] [place] [facility] BMI (Body Mass 2019-08-24 00:00:00 30.9 kg/m2 [place] counter former Index) [facility] Body Weight 2019-08-24 00:00:00 197 [lb_av] [place] [facility] Procedures Procedure Date / Time Performed Performing Clinician Sourc e XR SACRUM AND COCCYX 2022-10-21 19:07:13 Brenda Newman [facility] ASSIGNMENT OF BENEFITS 2022-10-21 18:24:12 Doctor Unassigned, No [facility] Name Medical Branch REFERRAL- 2021-06-14 06:01:00 Doctor Unassigned, No [facility] REQUEST/RESPONSE Name Medical Branch Encounters Start End Encounter Admission Attending Care Care Encounter Source Date/Time Date/Time Type Type Clinicians Facility Department ID 2022-11-01 Outpatient NIKA Lipscomb [facility] [id number] Common 11:04:01 Ngoc [id number] [facility] 2022-10-31 Outpatient Lind[place], STLMLC STLMLC [id number] Common 13:56:01 Ngoc [id number] [facility] 2022-10-27 Outpatient [place], STLMLC STLMLC [id number] Common 16:04:00 Ngoc [id number] [facility] 2022-07-07 Outpatient [place], STLMLC STLMLC [id number] Common 09:11:03 Ngoc [id number] [facility] 2022-04-20 Outpatient [place], STLMLC STLMLC [id number] Common 13:33:01 Ngoc [id number] [facility] 2022-04-05 Outpatient [place], STLMLC STLMLC [id number] Common 09:11:02 Ngoc [facility] 2022-02-24 Outpatient [place], STLMLC STLMLC [id number] Common 10:21:04 Ngoc [facility] 2022-01-03 Outpatient [place], STLMLC STLMLC [id number] Common 10:49:01 Ngoc [facility] 2021-08-25 Outpatient [place], STLMLC STLMLC [id number] Common 14:13:06 Ngoc [facility] 2021-08-18 Outpatient [place], STLMLC STLMLC [id number] Common 07:48:01 Ngoc [facility] 2021-07-02 Outpatient [place], STLMLC STLMLC [id number] Common 10:05:04 Ngoc [facility] 2022-11-30 2022-12-09 Inpatient E JOAQUIN [facility] SCU 1 [id number] [facility] 00:43:00 14:50:00 JOAQUIN ELDRIDGE [facility] 2022-11-29 2022-11-29 Emergency [facility] ECC [id number] [facility] 19:43:00 19:43:00 [id number] [facility] 2022-11-24 2022-11-24 Outpatient OUSMANE_RUDY [place] [id number] [place] 00:00:00 00:00:00 H [facility]17 [facility] 2022-11-24 2022-11-24 Marcio SANCHEZ [place] - [id number] [place] 00:00:00 00:00:00 MD Ousmane: Alba jarrell 17[address] [facility] [address], [facility] Outre [address] h , Ph. Program (373) --20072022-10-21 2022-10-21 [facility] [id number] [facility] 13:41:30 23:59:00 [facility]22-10-21 [facility] [id number] Univers 13:41:30 23:59:00 Encounter [facility] [id number] ity of [place] [id number] William as ANA LAURA?BLEA [id number] [facility] [address] MEDICAL OFFICE [facility] 2022-10-21 2022-10-21 [facility]gent [facility] [id number] Univers 13:20:00 14:41:13 Care Unknown, [facility] [id number] ity of [place] [id number] William as ANA LAURA?BLEA [id number] [facility] [address] MEDICAL OFFICE [facility] 2022-10-21 2022-10-21 Orders Doctor ARNULFO [id number] Univers 00:00:00 00:00:00 Only Unassigned, SACHIN [id number] ity of [place] [facility] [id number] William as [phone] [address] 2022-08-23 2022-08-23 Marcio SANCHEZ [place] - [id number] [place] 00:00:00 00:00:00 MD Ousmane: Alba jarrell 1700 [facility] - [address], [facility] Outre [address] h , Ph. Program (979) --20072022-08-17 2022-08-17 Outpatient PATEL_NILES MEHOP SDHOP 686 [place] 00:00:00 00:00:00 H 0516 [facility] 2022-08-17 2022-08-17 Outpatient PATEL_NILES MEHOP SDHOP 686 [place] 00:00:00 00:00:00 H 0518 [facility] 2022-08-05 2022-08-05 Outpatient PATEL_NILES SDHOP SDHOP 686 [place] 00:00:00 00:00:00 H 0428 [facility] 2022-06-02 2022-06-02 Outpatient PATEL_NILES SDHOP SDHOP 686 [place] 00:00:00 00:00:00 H 0223 [facility] 2022-06-02 2022-06-02 Outpatient PATEL_NILES SDHOP SDHOP 686 [place] 00:00:00 00:00:00 H 0226 [facility] 2022-06-02 2022-06-02 Outpatient PATEL_NILES SDHOP SDHOP 686 [place] 00:00:00 00:00:00 H 0301 [facility] 2022-06-02 2022-06-02 Outpatient PATEL_NILES SDHOP SDHOP 686 [place] 00:00:00 00:00:00 H 0312 [facility] 2022-06-02 2022-06-02 Outpatient PATEL_NILES SDHOP SDHOP 686 [place] 00:00:00 00:00:00 H 0403 [facility] 2022-06-02 2022-06-02 Marcio Fragoso [facility] [place] - [id number] [place] 00:00:00 00:00:00 MD Ousmane: Alba jarrell 1700 [facility] Hernandez HOP - [place] [facility] [address] h , Ph. Program (979) --20072022-05-19 2022-05-19 Marcio Richmond SANCHEZ [place] - [id number] [place] 00:00:00 00:00:00 MD Ousmane: Alba jarrell 1700 [facility] HOP - [address], [facility] [address] h , Ph. Program (979) --20072022-03-31 2022-03-31 Outpatient PATEL_NILES SDHOP SDHOP 686 [place] 00:00:00 00:00:00 H 0209 [facility] 2022-03-31 2022-03-31 Outpatient PATEL_NILES MEHOP SDHOP 686 [place] 00:00:00 00:00:00 H 0213 [facility] 2022-02-10 2022-02-10 Outpatient PATEL_LIASS MEHOP MEHOP 686 [place] 00:00:00 00:00:00 H 1103 [facility] 2022-02-10 2022-02-10 Marcio J DANIEL [place] - [id number] [place] 00:00:00 00:00:00 MD Ousmane: Alba jrarell [address] [facility] HOP - [address], [facility] [address] h , Ph. Program (979) --20072021-11-09 2021-11-09 Outpatient PATEL_LISAS SDHOP SDHOP 686 [place] 00:00:00 00:00:00 H 0802 [facility] 2021-11-09 2021-11-09 Marcio SANC[place] - [id number] [place] 00:00:00 00:00:00 MD Ousmane: Alba jarrell 17[address] [facility] HOP - [address], [facility] [place] [address] h , Ph. Program (979) --20072021-07-16 2021-07-16 Outpatient Tanika LISANDRO [facility] [id number] Univers 14:30:00 14:30:00 HARPAL ity [facility] 2021-06-14 2021-06-14 Orders Doctor ARNULFO [id number] Univers 00:00:00 00:00:00 Only Unassigned, SACHIN [id number] ity [facility] [id number] William as [phone] [address] 2021-05-22 2021-05-22 Outpatient PATEL_NILES SDHOP [facility] 68 [place] 09:58:00 09:58:00 H 0212 [facility] 2021-05-22 2021-05-22 Marcio SANCHEZ [facility] [id number] [place] 00:00:00 00:00:00 MD Ousmane: Alba jarrell 1700 [facility]OP - [facility] [address] h , Ph. Program (979) 2021-02-22 2021-02-22 Outpatient PATEL_NILES SDHOP SDHOP 686 [place] 09:04:00 09:04:00 H 1115 [facility] 2021-02-20 2021-02-20 Outpatient PATEL_NILES SDHOP [facility] 686 [place] 12:29:00 12:29:00 H 1113 [facility] 2021-02-20 2021-02-20 Marcio SANCHEZ [place] [id number] [place] 00:00:00 00:00:00 MD Ousmane: Alba jarrell 1700 [facility]OP - [facility] [place] [address] h , Ph. Program (979) --20072020-11-21 2020-11-21 Outpatient PATEL_RUDY SANCHEZ SDHOP 686 [place] 11:39:00 11:39:00 H 0814 [facility] 2020-11-21 2020-11-21 Marcio SANCHEZ [place] - [id number] [place] 00:00:00 00:00:00 MD Ousmane: Alba jarrell [address] [facility] HOP - [address], [facility] [address] h , Ph. Program (979) --20072020-08-22 2020-08-22 Outpatient PATEL_RUDY SANCHEZ [facility] 68 [place] 12:10:00 12:10:00 H 0515 [facility] 2020-08-22 2020-08-22 Marcio SANCHEZ [place] - [id number] [place] 00:00:00 00:00:00 MD Ousmane: Alba jarrell 17[address] [facility] HOP - [address], [facility] [address] h , Ph. Program (979) --20072020-05-30 2020-05-30 Outpatient PATEL_RUDY SANCHEZ [facility] 686 [place] 12:32:00 12:32:00 H 0220 [facility] 2020-05-30 2020-05-30 Marcio Fragoso SD[place]A [place] - [id number] [place] 00:00:00 00:00:00 MD Ousmane: Alba jarrell 17[address] [facility] HOP - [address], [facility] [address] h , Ph. Program (979) -20072020-02-29 2020-02-29 Outpatient PATEL_RUDY SANCHEZ [facility] 68 [place] 12:16:00 12:16:00 H 1121 [facility] 2020-02-29 2020-02-29 Marcio [place]ANC[place] - [id number] [place] 00:00:00 00:00:00 MD Ousmane: Alba jarrell 17[address] [facility] HOP - [address], [facility] Outre [address] h , Ph. Program (979) 2019-11-23 2019-11-23 Outpatient PATEL_RUDY SANCHEZ SDHOP 686 [place] 12:29:00 12:29:00 H 0815 [facility] 2019-11-23 2019-11-23 [facility] [place] - [id number] [place] 00:00:00 00:00:00 MD Ousmane: Alba jarrell 17[address] [facility] HOP - [address], [facility]re [address] h , Ph. Program (979) 2019-09-18 2019-09-18 Outpatient PATEL_RUDY SDHOP SDHOP 686 [place] 12:40:00 12:40:00 H 0617 [facility] 2019-08-24 2019-08-24 Outpatient PATEL_RUDY LAZOHOP SDHOP 686 [place] 10:55:00 10:55:00 H 0516 [facility] 2019-08-24 2019-08-24 Marcio SANHCEZ [place] - [id number] [place] 00:00:00 00:00:00 MD Ousmane: Alba jarrell 17[address] [facility] HOP - [address], [facility] Outre [address] h , Ph. Program (971) -20072019-05-18 2019-05-18 Outpatient PATEL_RUDY LAZOHOP SDHOP 686 [place] 09:59:00 09:59:00 H 0208 [facility] 2019-05-18 2019-05-18 Marcio Richmond [place] - [id number] [place] 00:00:00 00:00:00 MD Ousmane: Alba jarrell 1700 [facility] Hernandez [facility] [place], [facility] [address] Progr am , Ph. (979) -20072019-03-14 2019-03-14 Outpatient OUSMANE_RUDY SDNONA [facility] 686 [place] 12:15:00 12:15:00 H 0206 da [facility] 2019-01-26 2019-01-26 Marcio Fragoso [facility] [place] - [id number] [place] 00:00:00 00:00:00 MD Ousmane: Alba jarrell 1700 [facility] Episco p David [place]STE[place] - SDNONA al [address], [address], [facility] [id number] Progr am , Ph. (979) 2018-10-31 2018-10-31 Orders Doctor ARNULFO [id number] 00:00:00 00:00:00 Only Unassigned, SACHIN [id number] [place] [facility] [id number] Results Test Description Test Time Test Comments Results Result Comments Source COMPREHENSIVE METABOLIC MCMAHON 2022-12-04 06:05:00 Test Item Value Reference Range Interpretation Comme nts GLUCOSE (test code = 94 mg/dL 75-100 06D) SODIUM (test code = 137 mmol/L 136-145 01A) POTASSIUM (test code = 4.5 mmol/L 3.6-5.1 01B) CHLORIDE (test code = 103 mmol/L 98-107 04A) CO2 (test code = 02A) 30 mmol/L 20-31 ANION GAP (test code = 8.5 mmol/L ANG) BUN (test code = 05D) 9 mg/dL 9-23 CREATININE (test code = 0.8 mg/dL 0.6-1.0 03E) GFR (test code = GFR) 74 mL/min/1.73m\S\2 See_Comment L [Automated message] The system which ge nerated this result tra nsmitted reference range : >=90. The reference r azucena was not used to int erpret this result as normal/abnormal . GFR 86 mL/min/1.73m\S\2 See_Comment L [Automated message] The (test code = GFRAA) system w Dasher generated this result tra nsmitted reference range : >=90. The reference r azucena was not used to int erpret this result as normal/abnormal . EGFR (test code = EGFR) eGFR BY CKD-EPI CALCULATION IS NOT RECOMMENDED FOR PATIENTS UNDER 18 YEARS OF AGE. BUN/CREA (test code = 11 12-20 L BCR) CALCIUM (test code = 9.6 mg/dL 8.3-10.6 09D) BILI TOTAL (test code = 0.4 mg/dL 0.2-1.0 11A) PROTEIN (test code = 6.6 g/dL 5.7-8.2 07D) ALBUMIN (test code = 4.2 g/dL 3.2-4.8 08D) GLOBULIN (test code = 2.4 g/dL 1.5-3.8 GLB) ALB/GLOB (test code = 1.8 1.0-2.6 AGRR) ALK PHOS (test code = 96 IU/L 46-116 35A) AST (test code = 30A) 19 IU/L See_Comment [Auto mated message] The system which ge nerated this result tra nsmitted reference range : <=33. The reference r azucena was not used to int erpret this result as normal/abnormal . ALT (test code = 31A) 22 IU/L 10-49 BASIC METABOLIC [id number] 11:43:00 Test Item Value Reference Range Interpretation Comments GLUCOSE (test code 92 mg/dL 75-100 = 06D) SODIUM (test code 135 mmol/L 136-145 L = 01A) POTASSIUM (test 4.2 mmol/L 3.6-5.1 code = 01B) CHLORIDE (test 100 mmol/L 98-107 code = 04A) CO2 (test code = 30 mmol/L 20-31 02A) ANION GAP (test 9.4 mmol/L code = ANG) BUN (test code = 7 mg/dL 9-23 L 05D) CREATININE (test 0.7 mg/dL 0.6-1.0 code = 03E) GFR (test code = 87 See_Comment L [Automated GFR) mL/min/1.73m\S\2 message] Th e system which generated this result transmit reji reference range : >=90. The reference range was not used to interpret this result as normal/abnormal . GFR 101 See_Comment [Automated ITALIAN (test mL/min/1.73m\S\2 message] The code = GFRAA) system which generated this result transmit reji reference range : >=90. The reference range was not used to interpret this result as normal/abnormal . EGFR (test code = eGFR BY EGFR) CKD-EPI CALCULATION IS NOT RECOMMENDED FOR PATIENTS UNDER 18 YEARS OF AGE. BUN/CREA (test 10 12-20 L code = BCR) CALCIUM (test code 9.5 mg/dL 8.3-10.6 = 09D) CBC (INCLUDES AUTOMATED DIFFERENTIAL)2022-12-01 11:28:00 Test Item Value Reference Range Interpretation Comments WBC (test code = WBC) 8.1 10\S\3/uL 4.5-11.0 RBC (test code = RBC) 4.74 10\S\6/uL 3.80-5.80 HGB (test code = HBG) 15.5 g/dL 12.0-15.5 HCT (test code = HCT) 45.1 % 35.0-44.0 H MCV (test code = MCV) 95.1 fL 81.0-99.0 MCH (test code = MCH) 32.7 pg 27.0-31.0 H MCHC (test code = MCHC) 34.4 g/dL 32.0-36.0 RDW (test code = RDW) 12.7 % 11.5-14.5 PLT (test code = PLT) 300 10\S\3/uL 130-400 MPV (test code = MPV) 9.2 fL 9.4-12.4 L NEUTROP # (test code = NE#) 5.4 10\S\3/uL 1.6-8.0 LYMPH # (test code = LY#) 1.7 10\S\3/uL 1.1-3.5 MONOCYTE # (test code = MO#) 0.8 10\S\3/uL 0.0-1.1 EOSINOPH # (test code = EO#) 0.1 10\S\3/uL 0.0-0.7 BASOPHIL # (test code = BA#) 0.1 10\S\3/uL 0.0-0.3 IG # (test code = IG#) 0.03 10\S\3/uL 0.00-0.06 NRBC # (test code = NRBC#) 0.00 10\S\3/uL 0.00-0.01 NEUTROPH % (test code = NE%) 67.1 % 35.0-73.0 LYMPH % (test code = LY%) 21.4 % 20.0-55.0 MONO % (test code = MO%) 9.6 % 2.5-10.0 EOSINOPH % (test code = EO%) 0.9 % 0.0-5.0 BASOPHIL % (test code = BA%) 0.6 % 0.0-2.0 IG % (test code = IG%) 0.4 % 0.0-0.8 NRBC% (test code = NRBC%) 0.0 % 0.0-0.2 MANDIFF (test code = MDIFF) NO RBC MORPH (test code = RBCMOR) NORMAL B12 [id number] 03:45:00 Test Item Value Reference Range Interpretation Comments VIT B12 (test code = A60) 555.0 pg/mL 211.0-911.0 THYROID PANEL/SCREEN (TSH)2022-11-30 03:45:00 Test Item Value Reference Range Interpretation Comments TSH (test code = A57) 1.495 uIU/mL 0.550-4.780 [id number] 03:43:00 Test Item Value Reference Range Interpretation Comments FOLATE (test code = 14.1 ng/mL See_Comment [Automa reji message] The A75) system which ge nerated this result tra nsmitted reference range : >=5.5. The reference r azucena was not used to int erpret this result as normal/abnormal . LIPID [id number] 02:01:00 Test Item Value Reference Range Interpretation Comments CHOLESTROL (test code 158 mg/dL 140-200 = 44A) TRIGLYCERI (test code 214 mg/dL See_Comment H [Auto mated message] = 42B) The system whic h generated this result transmitted ref erence range: <=149. T he reference range was not used to int erpret this result as normal/abnormal . HDL (test code = 83D) 55.5 mg/dL 40.0-60.0 LDL (test code = 34B) 74 mg/dL See_Comment [Auto mated message] The system Yar[employer] generated this result transmitted ref erence range: <=99. Th e reference range was not used to int erpret this result as normal/abnormal . CHL/HDL (test code = 2.8 0.0-3.4 CHR) [id number] 02:01:00 Test Item Value Reference Range Interpretation Comments MAGNESIUM (test code = 48A) 2.0 mg/dL 1.6-2.6 [id number] 02:00:00 Test Item Value Reference Range Interpretation Comments PREALBUMIN (test code = 08E) 37 mg/dL 10-40 [id number] 01:57:00 Test Item Value Reference Range Interpretation Comments Hb A1C % (test code 5.2 % 3.8-6.4 = HBA) A1C % (test code = HbA1c (% ) A1C) Reference Range Normal <5.7 Prediabetes 5.7-6.4 Di[address] >=6.5 CT HEAD W/O [id number] 22:40:30 [facility] 1950 Sex: FCT headHistory: Paranoid disorder;bizarre paranoid behaviorComparison: None at this timeLocation: [id number]: Noncontrast CT scan of the head was performed. One or more of the following radiation dose reduction techniques was used: automated exposure control, adjustment of mA and/or KV according to patient size, and/or utilization of iterative reconstruction technique.Quality of Exam: Acceptable.The ventricles, sulci and cisterns are within normal limits in size for this age patient. There is no convincing evidence of intracranial hemorrhage or mass effect.There is no midline shift. The visualized paranasal sinuses are unremarkable.IMPRESSION:There is no imaging evidence of acute intracranial pathology.Electronically signed by: Son Arevalo MD 11/29/2022 10:40 PM CDT [id number] 21:38:00 Test Item Value Reference Range Interpretation Comments BILI TOTAL (test 0.3 mg/dL 0.2-1.0 code = 11A) BILI DIRCT (test <0.1 mg/dL 0.0-0.3 code = 12A) PROTEIN (test code = 7.9 g/dL 5.7-8.2 07D) ALBUMIN (test code = 5.0 g/dL 3.2-4.8 H 08D) GLOBULIN (test code 2.9 g/dL 1.5-3.8 = GLB) ALB/GLOB (test code 1.7 1.0-2.6 = AGRR) ALK PHOS (test code 120 IU/L 46-116 H = 35A) AST (test code = 27 IU/L See_Comment [Automated message] 30A) The system [employer] generated this result transmitted ref erence range: <=33. Th e reference range was not used to interpr et this result as normal/abnormal . ALT (test code = 21 IU/L 10-49 31A) SARS-CoV (RAPID ANTIGEN)2022-11-29 21:37:00 Test Item Value Reference Range Interpretation Comments SARS-CoV (ANTIGEN) NEGATIVE NEGATIVE (test code = COVAG) COVID AG (test This test has been code = COVAGC) marketed under the FDA Emergency Use Authorization (EUA) to meet challenges of the COVID-19 pandemic. The validation standards normally enforced by the FDA and the [employer] ([employer]) are more stringent than those required for this test. Therefore, the result should be interpreted with caution and close attention to other clinical and epidemiological data [id number] 21:34:00 Test Item Value Reference Range Interpretation Comments ACETAMINPH (test code = 94M) <0.2 mg/dL 1.2-2.5 L ALCOHOL BLOOD (ETOH)2022-11-29 21:34:00 Test Item Value Reference Range Interpretation Comments ETOH (test code = ETHANOL HALC) The result is to be used only for medical purposes ALCOHOL (test <10 mg/dL See_Comment [Automated me ssage] code = 56A) The system [facility] h generated this result transmit reji reference range : <=10. The refer ence range was not u sed to interpret is result as normal/abnormal . [id number] 21:33:00 Test Item Value Reference Range Interpretation Comments SALICYLATE (test code = 94B) <3.0 mg/dL 15.0-30.0 L AMMONIA [id number] 21:32:00 Test Item Value Reference Range Interpretation Comments AMMONIA (test code = 54A) <10 umol/L 11-32 L BASIC METABOLIC [id number] 21:30:00 Test Item Value Reference Range Interpretation Comments GLUCOSE (test code 97 mg/dL 75-100 = 06D) SODIUM (test code 133 mmol/L 136-145 L = 01A) POTASSIUM (test 4.2 mmol/L 3.6-5.1 code = 01B) CHLORIDE (test 99 mmol/L 98-107 code = 04A) CO2 (test code = 28 mmol/L 20-31 02A) ANION GAP (test 10.3 mmol/L code = ANG) BUN (test code = 13 mg/dL 9-23 05D) CREATININE (test 0.9 mg/dL 0.6-1.0 code = 03E) GFR (test code = 64 See_Comment L [Automated GFR) mL/min/1.73m\S\2 message] Th e system which generated this result transmit reji reference range : >=90. The reference range was not used to interpret this result as normal/abnormal . GFR 74 See_Comment L [Automated ITALIAN (test mL/min/1.73m\S\2 message] The code = GFRAA) system which generated this result transmit reji reference range : >=90. The reference range was not used to interpret this result as normal/abnormal . EGFR (test code = eGFR BY EGFR) CKD-EPI CALCULATION IS NOT RECOMMENDED FOR PATIENTS UNDER 18 YEARS OF AGE. BUN/CREA (test 14 03-29 code = BCR) CALCIUM (test code 9.5 mg/dL 8.3-10.6 = 09D) URINALYSIS WITH [id number] 21:29:00 Test Item Value Reference Range Interpretation Comments COLOR (test code = COLU) YELLOW YELLOW CLARITY (test code = CLA) CLEAR CLEAR GLUCOSE UR (test code = UA NEGATIVE NEGATIVE GLUCOSE) BILI UR (test code = BILE) NEGATIVE NEGATIVE KETONES UR (test code = RAVEN) NEGATIVE NEGATIVE SP GRAVITY (test code = SPGR) 1.009 1.005-1.030 PH UR (test code = PH) 6.0 4.5-8.0 PROTEIN UR (test code = PU) NEGATIVE NEGATIVE UROBIL UR (test code = UROQ) 0.2 EU/dL 0.2-1.0 NITRITE UR (test code = NEGATIVE NEGATIVE NITRITE) BLOOD UR (test code = UA BLOOD) NEGATIVE NEGATIVE LEUK ES UR (test code = LEUK) 1+ NEGATIVE A WBC UR (test code = UWBC) 5 /HPF 0-5 RBC UR (test code = URBC) 0 /HPF 0-2 EPITH UR (test code = UEPC) MODERATE /LPF FEW A BACTERIA UR (test code = UBACT) NONE /HPF NONE CAST UR (test code = CAST) /LPF NONE CRYSTAL UR (test code = CRYU) / LPF NONE MUCUS UR (test code = MUC) / HPF NONE AMORPH UR (test code = LOVELY) / HPF NONE TRICH UR (test code = UTRICH) /HPF NONE YEAST UR (test code = UY) /HPF NONE SPERM UR (test code = USPERM) /HPF NONE DRUGS OF [id number] 21:24:00 Test Item Value Reference Range Interpretation Comments DRUG SCRN (test code = URINE DRUG HDOA) SCREEN This is an unconfirmed screening result and should not be used for non-medical purposes CANNABINOD (test code POSITIVE NEGATIVE A = 88C) AMPHETAMINE (test code NEGATIVE NEGATIVE = 84A) BENZODIAZP (test code NEGATIVE NEGATIVE = 86A) BARBITURAT (test code NEGATIVE NEGATIVE = 85A) OPIATES (test code = NEGATIVE NEGATIVE 92B) COCAINE (test code = NEGATIVE NEGATIVE 87A) PHENCYCLID (test code NEGATIVE NEGATIVE = 66A) METHADONE (test code = NEGATIVE NEGATIVE 64A) DOAH (test code = DOAH.) URINE DRUGSCREEN Cut-off values are as follows: Cannabinoids 50 ng/mL Cocaine 300 ng/mL Amphetamines 1000 ng/mL Phencyclidine 25 ng/mL Benzodiazepines 200 ng.mL Methadone 300 ng/mL Barbiturates 200 ng/mL Opiates 300 ng/mL CBC (INCLUDES AUTOMATED DIFFERENTIAL)2022-11-29 21:20:00 Test Item Value Reference Range Interpretation Comments WBC (test code = WBC) 11.5 10\S\3/uL 4.5-11.0 H RBC (test code = RBC) 4.74 10\S\6/uL 3.80-5.80 HGB (test code = HBG) 15.7 g/dL 12.0-15.5 H HCT (test code = HCT) 45.6 % 35.0-44.0 H MCV (test code = MCV) 96.2 fL 81.0-99.0 MCH (test code = MCH) 33.1 pg 27.0-31.0 H MCHC (test code = MCHC) 34.4 g/dL 32.0-36.0 RDW (test code = RDW) 12.6 % 11.5-14.5 PLT (test code = PLT) 325 10\S\3/uL 130-400 MPV (test code = MPV) 9.4 fL 9.4-12.4 NEUTROP # (test code = NE#) 7.0 10\S\3/uL 1.6-8.0 LYMPH # (test code = LY#) 3.3 10\S\3/uL 1.1-3.5 MONOCYTE # (test code = MO#) 1.0 10\S\3/uL 0.0-1.1 EOSINOPH # (test code = EO#) 0.1 10\S\3/uL 0.0-0.7 BASOPHIL # (test code = BA#) 0.1 10\S\3/uL 0.0-0.3 IG # (test code = IG#) 0.02 10\S\3/uL 0.00-0.06 NRBC # (test code = NRBC#) 0.00 10\S\3/uL 0.00-0.01 NEUTROPH % (test code = NE%) 61.2 % 35.0-73.0 LYMPH % (test code = LY%) 28.7 % 20.0-55.0 MONO % (test code = MO%) 8.4 % 2.5-10.0 EOSINOPH % (test code = EO%) 0.8 % 0.0-5.0 BASOPHIL % (test code = BA%) 0.7 % 0.0-2.0 IG % (test code = IG%) 0.2 % 0.0-0.8 NRBC% (test code = NRBC%) 0.0 % 0.0-0.2 MANDIFF (test code = MDIFF) NO
--- NOTE | 2023-01-30 01:46 | ER ---
Nurse's Notes [facility] Name: Kylie Kaplan Age: 72 yrs Sex: Female : 1950 Arrival Date: 01/29/2023 Time: 22:23 Bed 7 Private MD: Diagnosis: Swelling Left Ankle Presentation: 01/29 22:41 Chief complaint: Patient's son or daughter states: patient has been having left lower ap3 ankle swelling and bruising for a few days. patient is unable to recall if there was any trauma to her ankle or not. Coronavirus screen: At this time, the client does not indicate any symptoms associated with coronavirus-19. Ebola Screen: No symptoms or risks identified at this time. Initial Sepsis Screen: Does the patient meet any 2 criteria? No. Patient's initial sepsis screen is negative. Does the patient have a suspected source of infection? No. Patient's initial sepsis screen is negative. Risk Assessment: Do you want to hurt yourself or someone else? Patient reports no desire to harm self or others. Onset of symptoms is unknown. 22:41 Method Of Arrival: Ambulatory ap3 22:41 Acuity: TONY 4 ap3 Triage Assessment: 22:43 General: Appears in no apparent distress. Behavior is calm, cooperative, appropriate ap3 for age. Pain: Complains of pain in left lateral ankle and left medial ankle Pain began 2-3 days ago. Neuro: Level of Consciousness is awake, alert, obeys commands, Oriented to person, Gait is steady. Cardiovascular: Patient's skin is warm and dry. Respiratory: Airway is patent Respiratory effort is even, unlabored. Musculoskeletal: Swelling present in left ankle. Historical: - Allergies: 22:43 PENICILLINS; ap3 - PMHx: 22:43 Anxiety; DVT; Hyperlipidemia; Thyroid problem; ap3 - Immunization history:: Client reports having NOT received the Covid vaccine. - Social history:: Smoking status: Reported history of juuling and/or vaping. Screenin:44 Abuse screen: Denies threats or abuse. Nutritional screening: No deficits noted. ap3 Tuberculosis screening: No symptoms or risk factors identified. 22:56 [facility] ED Fall Risk Assessment (Adult) History of falling in the last 3 months, nw1 including since admission No falls in past 3 months (0 pts) Confusion or Disorientation No (0 pts) Intoxicated or Sedated No (0 pts) Impaired Gait Yes (1 pt) Mobility Assist Device Used No (0 pt) Altered Elimination No (0 pt) Score/Fall Risk Level 0 - 2 = Low Risk Oriented to surroundings, Maintained a safe environment, Educated pt \T\ family on fall prevention, incl call for assistance when getting out of bed, Assessed \T\ reinforced patient's understanding of fall precautions, Provided non-skid footwear, Hourly rounding (assess needs \T\ fall precautionary measures) done, Used ambulatory aids as needed (educated on \T\ assisted with), Used gait belt as appropriate. Assessment: 22:54 General: Appears in no apparent distress. uncomfortable, Behavior is calm, cooperative, nw1 appropriate for age. Neuro: No deficits noted. Cardiovascular: No deficits noted. Respiratory: No deficits noted. GI: No deficits noted. : No deficits noted. Derm: Skin is dry, warm and noted swelling to LLE. Musculoskeletal: Range of motion: intact in all extremities, Swelling present in right leg. 22:58 Reassessment: Pt ambulated to restroom with standby assistance from daughter. Urine nw1 obtained in case of order. Pt back in room and placed back on monitor. 0 s/s of acute distress noted at this time. Call light at bedside. 23:19 Reassessment: Xray at bedside. nw1 23:25 General: hvac field service technician to bedside to complete study. . la4 Vital Signs: 22:41 BP 142 / 79; Pulse 72; Resp 18; Temp 98.6; Pulse Ox 100% ; Weight 45.36 kg; ap3 22:56 BP 133 / 74; Pulse 77; Resp 15; Pulse Ox 99% ; nw1 01/30 00:53 BP 120 / 79; Pulse 69; Resp 15; Pulse Ox 99% ; nw1 01:25 BP 118 / 76; Pulse 99; Resp 20; Pulse Ox 96% on R/A; la4 [place] Coma Score: 01/29 22:56 Eye Response: spontaneous(4). Motor Response: obeys commands(6). Verbal Response: nw1 oriented(5). Total: 15. 01/30 01:25 Eye Response: spontaneous(4). Motor Response: obeys commands(6). Verbal Response: la4 oriented(5). Total: 15. ED Course: 01/29 22:26 Patient arrived in ED. jj6 22:31 Shahriar Mendes DO is Attending Physician. ms3 22:43 Triage completed. ap3 22:44 Arm band placed on right wrist. ap3 22:57 Patient has correct armband on for positive identification. Bed in low position. Call nw1 light in reach. Side rails up X2. Provided Education on: POC. Pulse ox on. NIBP on. Door closed. Noise minimized. Warm blanket given. 22:57 No provider procedures requiring assistance completed. nw1 23:15 Alfred Darden, RN is Primary Nurse. la4 23:27 Ankle Left 3 View In Process Unspecified. EDMS 23:44 Extremity Venous Uni Ltd In Process Unspecified. EDMS 01/30 01:54 Patient did not have IV access during this emergency room visit. nw1 06:39 US Extremity Venous Unilateral Ltd In Process Unspecified. EDMS Administered Medications: No medications were administered Medication: 01/29 22:56 VIS not applicable for this client. nw1 Outcome: 01/30 01:45 Discharge ordered by . ms3 01:53 Discharged to home ambulatory, with family, nw1 01:53 Condition: good 01:53 Discharge instructions given to patient, family, Instructed on discharge instructions, follow up and referral plans. Demonstrated understanding of instructions, follow-up care, 01:54 Patient left the ED. nw1 Signatures: Dispatcher [employer] EDMS Zabrina Sanz RN RN ap3 Shahriar Mendes DO DO ms3 Joceline Hendrix jj6 Alfred Darden RN RN la4 Jyoti Khanna RN RN nw1 Corrections: (The following items were deleted from the chart) 01/29 22:42 22:41 Chief complaint: ap3 ap3
--- NOTE | 2023-01-30 01:46 | EDPHYS ---
Physician Documentation [facility] Name: Kylie Kaplan Age: 72 yrs Sex: Female : 1950 Arrival Date: 01/29/2023 Time: 22:23 Bed 7 Private MD: ED Physician Shahriar Mendes HPI: 01/29 22:44 This 72 yrs old Female presents to ER via Ambulatory with complaints of Leg Swelling, ms3 Leg Pain. 22:44 72-year-old female with past medical history of anxiety, DVT, hyperlipidemia, ms3 hypothyroidism presents to the emergency department with her daughter for left ankle swelling that is been ongoing for 2 days. Patient and her daughter are unsure if patient had trauma to the area. Patient denies pain to her left ankle. Patient states her left ankle feels tight. Patient denies any alleviating or inciting factors. Historical: - Allergies: 22:43 PENICILLINS; ap3 - PMHx: 22:43 Anxiety; DVT; Hyperlipidemia; Thyroid problem; ap3 - Immunization history:: Client reports having NOT received the Covid vaccine. - Social history:: Smoking status: Reported history of juuling and/or vaping. ROS: 22:44 Constitutional: Negative for fever, and chills. Neck: Negative for injury, pain, and ms3 swelling, Cardiovascular: Negative for chest pain, and palpitations. Respiratory: Negative for shortness of breath, cough, wheezing, and pleuritic chest pain, Abdomen/GI: Negative for abdominal pain, nausea, vomiting, diarrhea, and constipation, 22:44 MS/extremity: Positive for swelling, of the Left ankle, Exam: 22:44 Constitutional: This is a well developed, well nourished patient who is awake, alert, ms3 and in no acute distress. Head/Face: Normocephalic, atraumatic. Neck: Trachea midline, no cervical lymphadenopathy. Supple, full range of motion without nuchal rigidity, or vertebral point tenderness. No Meningismus. Chest/axilla: Normal chest wall appearance and motion. Nontender with no deformity. Cardiovascular: Regular rate and rhythm with a normal S1 and S2. No gallops, murmurs, or rubs. Normal PMI, no JVD. No pulse deficits. Respiratory: Lungs have equal breath sounds bilaterally, clear to auscultation and percussion. No rales, rhonchi or wheezes noted. No increased work of breathing, no retractions or nasal flaring. Abdomen/GI: Soft, non-tender, with normal bowel sounds. No distension or tympany. No guarding or rebound. No evidence of tenderness throughout. Skin: Warm, dry with normal turgor. Normal color with no rashes, no lesions, and no evidence of cellulitis. 22:44 Musculoskeletal/extremity: Extremities: noted in the Left ankle: swelling, Vital Signs: 22:41 BP 142 / 79; Pulse 72; Resp 18; Temp 98.6; Pulse Ox 100% ; Weight 45.36 kg; ap3 22:56 BP 133 / 74; Pulse 77; Resp 15; Pulse Ox 99% ; nw1 01/30 00:53 BP 120 / 79; Pulse 69; Resp 15; Pulse Ox 99% ; nw1 01:25 BP 118 / 76; Pulse 99; Resp 20; Pulse Ox 96% on R/A; la4 [place] Coma Score: 01/29 22:56 Eye Response: spontaneous(4). Motor Response: obeys commands(6). Verbal Response: nw1 oriented(5). Total: 15. 01/30 01:25 Eye Response: spontaneous(4). Motor Response: obeys commands(6). Verbal Response: la4 oriented(5). Total: 15. MDM: 01/29 22:43 Patient medically screened. ms3 22:44 Differential diagnosis: closed fracture, contusion, Deep venous thrombosis. ms3 01/30 01:45 Data reviewed: vital signs, nurses notes, radiologic studies, and as a result, I will ms3 discharge patient. Independent interpretation of the following test(s) in the Emergency Department X-Ray: My interpretation is Left ankle x-rays reviewed by me do not reveal fracture. Historians other than the Patient: Daughter/Son: Patient's daughter. Counseling: I had a detailed discussion with the patient and/or guardian regarding the historical points, exam findings, and any diagnostic results supporting the discharge/admit diagnosis, radiology results, the need for outpatient follow up, to return to the emergency department if symptoms worsen or persist or if there are any questions or concerns that arise at home. Special discussion: I discussed with the patient/guardian in detail that at this point there is no indication for admission to the hospital. It is understood, however, that if the symptoms persist or worsen the patient needs to return immediately for re-evaluation. ED course: Discussed ultrasound and x-ray reports with patient and her daughter. Patient to follow-up with primary care physician in 2 to 3 days. Patient's daughter understands agrees with plan. All questions were answered. Return precautions discussed include worsening symptoms, or any other concerns.. 01/29 23:17 Order name: Ankle Left 3 View EDMS 01/29 23:22 Order name: Extremity Venous Uni Ltd EDMS Administered Medications: No medications were administered Disposition Summary: 01/30/23 01:45 Discharge Ordered Notes: Location: Home ms3 Condition: Stable ms3 Diagnosis - Swelling Left Ankle ms3 Followup: ms3 - With: Private Physician - When: 2 - 3 days - Reason: Recheck today's complaints Discharge Instructions: - Discharge Summary Sheet ms3 - Edema, [id number] ms3 - Peripheral Edema ms3 Forms: - Medication Reconciliation Form ms3 - Thank You Letter ms3 - Antibiotic Education ms3 - Prescription Opioid Use ms3 - Patient Portal Instructions ms3 - Leadership Thank You Letter ms3 Signatures: Dispatcher [employer] Zabrina Rascon RN RN ap3 Shahriar Mendes DO DO ms3
--- NOTE | 2023-01-30 14:24 | RAD REPORT ---
EXAM DESCRIPTION: US - Extremity Venous Uni Ltd - 01/29/2023 11:42 pm CLINICAL HISTORY: Swelling COMPARISON: None. TECHNIQUE: Grayscale, color Doppler, duplex Doppler, spectral Doppler images and analysis with compr ession and augmentation of left lower extremity veins. FINDINGS: Left common femoral, greater saphenous, femoral, deep (profunda) femoral, popliteal, poste rior tibial veins unremarkable without evidence of clot. IMPRESSION: No sonographic evidence of left lower extremity DVT. Electronically signed by: Timoteo Warren MD 01/30/2023 1:23 AM CDT Due to temporary technical issues with the PACS/Fluency reporting system, reports are being signed by the in house radiologist without review as a courtesy to ensure prompt reporting. The interpreting r adiologist is fully responsible for the content of the report.
--- NOTE | 2023-01-30 14:26 | RAD REPORT ---
EXAM DESCRIPTION: RAD - Ankle Left 3 View - 01/29/2023 11:25 pm CLINICAL HISTORY: Pain COMPARISON: None. TECHNIQUE: Left Ankle 3 Views FINDINGS: No fracture or dislocation. No significant sclerotic/lytic bone lesion. Small calcaneal enthesophyte (bone spur) arising from Achilles tendon attachment site. Joint spaces unremarkable. Moderate, diffuse, left ankle soft tissue swelling. IMPRESSION: Moderate, diffuse, left ankle soft tissue swelling. Electronically signed by: Timoteo Warren MD 01/30/2023 1:27 AM CDT Due to temporary technical issues with the PACS/Fluency reporting system, reports are being signed by the in house radiologist without review as a courtesy to ensure prompt reporting. The interpreting r adiologist is fully responsible for the content of the report.
== END 2023-01-30 01:54 | disposition home or self-care (01) ==
LOC: ER 22:23
DX: R22.42 Localized swelling, mass and lump, left lower limb (principal); Z86.718 Personal history of other venous thrombosis and embolism; Z88.0 Allergy status to penicillin
CPT/HCPCS: 93971

== ENCOUNTER → 2023-03-29 | Emergency (ER) | payer OTHER ==
[~2023-03-29] MED LIST: NA CHLORIDE 0.9% 1,000 ML ONE; ONDANSETRON 4 MG (ODT) TAB ONE; SMZ./TMP. 800/160 MG TABLET ONE
--- OUTSIDE RECORDS SUMMARY | 2023-03-29 21:16 | XMS REPORT | Continuity of Care Document ---
Author Name Unknown Address [address] [facility] [address] [place] [address] [facility] thconnect Address [address] [facility] [address] [place] [address] Care Team Providers Care Veneer Gluer Name Role Phone Juana Avina Marvin Primary Care Physician [phone] Ngoc Lipscomb Attending Clinician Unavailable DR JOAQUIN ELDRIDGE Attending Clinician UnavailDR JOAQUIN Vigil Attending Clinician Unavailbharath ROMEO_PHUONG Attending Clinician Unavailable BRENDA NEWMAN Attending Clinician Unavailable Brenda Newman PA-C Attending Clinician [phone] Unknown, Attending Attending Clinician Unavailab le Doctor Unassigned, [place] Attending Clinician U HARPAL Zapata Attending Clinician Unavailable DR JOAQUIN ELDRIDGE Admitting Clinician DR ROXANNE Rhodes Admitting Clinician Unachante SANDS Admitting Clinician Unavailable Payers Payer Name Policy Type Policy Number Effective Date Expirati on Date Source [id number] [id number] 2022 00:00:00 0050 [id number] 1959 00:00:00 [place]: ANTONIO MORALES [facility] [id number] 2016 00:00:00 [id number] MEDICARE PART A \T\ B [id number] 2016 00:00:00 COMMERCIAL NON-CONTRACT GENERIC [id number] 2014 00:00:00 Problems Condition Name Condition Details Condition Category Status Onset Date Resolution Date Last Treatment Date Treating Clinician Comments Source Bipolar disorder Bipolar Disorder Problem Active 16 00:00: 00 [facility] Anxiety Anxiety Problem Active [facility] Insomnia Insomnia Problem Active [facility] 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 [facility] Allergies, Adverse Reactions, Alerts Allergy Name Allergy Type Status Severity Reaction(s) Onset Date Inactive Date Treating Clinician Comments Source Penicill ins DA Active Unknown 11-29 00:00: 00 [facility] Penicill ins Propensi ty to adverse reaction s Active Hives 11-03 00:00: 00 [facility] PENICILL INS Drug Class Active Hives 11-03 00:00: 00 [facility] Penicill ins Propensi ty to adverse reaction s Active Hives 11-03 00:00: 00 [facility] PENICILL INS Allergy to substanc e Active [facility] Social History Social Habit Start Date Stop Date Quantity Comments Source Gender identity [facility] Sexual orientation [facility] Cigarettes smoked current (pack per day) - Reported 2022-10-21 00:00:00 2022-10-21 00:00:00 [facility] Cigarette pack-years 2022-10-21 00:00:00 2022-10-21 00:00:00 [facility] Tobacco use and exposure 2022-10-21 00:00:00 2022-10-21 00:00:00 User of smokeless tobacco [facility] Alcohol intake 2022-10-21 00:00:00 2022-10-21 00:00:00 Ex-drinker (finding) [facility] Tobacco Comment 2022-10-21 00:00:00 2022-10-21 00:00:00 vaping [facility] History of tobacco use 2018-10-24 00:00:00 Cigarette Smoker [facility] History of Social function 2018-10-18 00:00:00 2018-10-18 00:00:00 [facility] Sex Ass[birth year] At 1950 00:00:00 1950 00:00:00 [facility] Smoking Status Start Date Stop Date Source Ex-smoker 2022-10-21 00:00:00 2022-10-21 [facility] Ordered Medication Name Filled Medication Name Start Date Stop Date Current Medication? Ordering Clinician Indication Dosage Frequency Signature (SIG) Comments Components Source melatonin 10 mg Tab 10-31 13:45: 49 Yes Take by mouth. [facility] QUEtiapine 200 mg tablet 10-31 13:45: 49 Yes 200mg Take 200 mg by mouth 2 (two) times daily. [facility] melatonin 10 mg Tab 10-31 13:45: 49 Yes Take by mouth. [facility] QUEtiapine 200 mg tablet 10-31 13:45: 49 Yes 200mg Take 200 mg by mouth 2 (two) times daily. [facility] melatonin 10 mg Tab 10-31 13:45: 49 Yes Take by mouth. [facility] QUEtiapine 200 mg tablet 10-31 13:45: 49 Yes 200mg Take 200 mg by mouth 2 (two) times daily. [facility] melatonin 10 mg Tab 10-31 13:45: 49 Yes Take by mouth. [facility] QUEtiapine 200 mg tablet 10-31 13:45: 49 Yes 200mg Take 200 mg by mouth 2 (two) times daily. [facility] atorvastati n 40 mg tablet 08-23 00:00: 00 Yes 1 TABLET IN EVENING ONCE A DAY ORALLY 90 DAYS [facility] levothyroxi ne 150 mcg tablet 08-23 00:00: 00 Yes TAKE 1 TABLET BY MOUTH EVERY DAY ON EMPTY STOMACH IN THE MORNING [facility] atorvastati n 40 mg tablet 08-23 00:00: 00 Yes 1 TABLET IN EVENING ONCE A DAY ORALLY 90 DAYS [facility] levothyroxi ne 150 mcg tablet 08-23 00:00: 00 Yes TAKE 1 TABLET BY MOUTH EVERY DAY ON EMPTY STOMACH IN THE MORNING [facility] atorvastati n 40 mg tablet 08-23 00:00: 00 Yes 1 TABLET IN EVENING ONCE A DAY ORALLY [address] levothyroxi ne 150 mcg tablet 08-23 00:00: 00 Yes TAKE 1 TABLET BY MOUTH EVERY DAY ON EMPTY STOMACH IN THE MORNING [facility] atorvastati n 40 mg tablet 08-23 00:00: 00 Yes 1 TABLET IN EVENING ONCE A DAY ORALLY 90 DAYS [facility] levothyroxi ne 150 mcg tablet 08-23 00:00: 00 Yes TAKE 1 TABLET BY MOUTH EVERY DAY ON EMPTY STOMACH IN THE MORNING [facility] LORazepam 0.5 mg tablet 08-22 00:00: 00 Yes TAKE 1 TABLET BY MOUTH TWICE A DAY NEEDED FOR SLEEP [facility] LORazepam 0.5 mg tablet 08-22 00:00: 00 Yes TAKE 1 TABLET BY MOUTH TWICE A DAY NEEDED FOR SLEEP [facility] LORazepam 0.5 mg tablet 08-22 00:00: 00 Yes TAKE 1 TABLET BY MOUTH TWICE A DAY NEEDED FOR SLEEP [facility] LORazepam 0.5 mg tablet 08-22 00:00: 00 Yes TAKE 1 TABLET BY MOUTH TWICE A DAY NEEDED FOR SLEEP [facility] nortriptyli ne 75 mg capsule 08-19 00:00: 00 Yes TAKE 2 CAPSULES BY MOUTH EVERY DAY AT BEDTIME [facility] gabapentin 300 mg capsule 08-19 00:00: 00 Yes TAKE ONE CAPSULE BY MOUTH 4 TIMES A DAY [facility] nortriptyli ne 75 mg capsule 08-19 00:00: 00 Yes TAKE 2 CAPSULES BY MOUTH EVERY DAY AT BEDTIME [facility] gabapentin 300 mg capsule 08-19 00:00: 00 Yes TAKE ONE CAPSULE BY MOUTH 4 TIMES A DAY [facility] nortriptyli ne 75 mg capsule 08-19 00:00: 00 Yes TAKE 2 CAPSULES BY MOUTH EVERY DAY AT BEDTIME [facility] gabapentin 300 mg capsule 08-19 00:00: 00 Yes TAKE ONE CAPSULE BY MOUTH 4 TIMES A DAY [facility] nortriptyli ne 75 mg capsule 08-19 00:00: 00 Yes TAKE 2 CAPSULES BY MOUTH EVERY DAY AT BEDTIME [facility] gabapentin 300 mg capsule 08-19 00:00: 00 Yes TAKE ONE CAPSULE BY MOUTH 4 TIMES A DAY [facility] eszopiclone 3 mg tablet 08-04 00:00: 00 Yes TAKE 1 TABLET BY MOUTH EVERY DAY AT BEDTIME [facility] eszopiclone 3 mg tablet 08-04 00:00: 00 Yes TAKE 1 TABLET BY MOUTH EVERY DAY AT BEDTIME [facility] eszopiclone 3 mg tablet 08-04 00:00: 00 Yes TAKE 1 TABLET BY MOUTH EVERY DAY AT BEDTIME [facility] eszopiclone 3 mg tablet 08-04 00:00: 00 Yes TAKE 1 TABLET BY MOUTH EVERY DAY AT BEDTIME [facility] XARELTO 20 mg tablet 06-29 00:00: 00 Yes TAKE 1 TABLET BY MOUTH EVERY DAY WITH FOOD [facility] XARELTO 20 mg tablet 06-29 00:00: 00 Yes TAKE 1 TABLET BY MOUTH EVERY DAY WITH FOOD [facility] XARELTO 20 mg tablet 06-29 00:00: 00 Yes TAKE 1 TABLET BY MOUTH EVERY DAY WITH FOOD [facility] XARELTO 20 mg tablet 06-29 00:00: 00 Yes TAKE 1 TABLET BY MOUTH EVERY DAY WITH FOOD [facility] Acetaminoph en-Codeine 120-12 mg/5 mL oral solution 11-03 00:00: 00 Yes 10mL Take 10 mL by mouth every 6 (six) hours as needed for Pain (scale 4-6). [facility] chlorhexidi ne 0.12 % mouthwash 11-03 00:00: 00 Yes 15mL Swish and spit out 15 mL 2 (two) times daily. [facility] Acetaminoph en-Codeine 120-12 mg/5 mL oral solution 11-03 00:00: 00 Yes 10mL Take 10 mL by mouth every 6 (six) hours as needed for Pain (scale 4-6). [facility] chlorhexidi ne 0.12 % mouthwash 11-03 00:00: 00 Yes 15mL Swish and spit out 15 mL 2 (two) times daily. [facility] Acetaminoph en-Codeine 120-12 mg/5 mL oral solution 11-03 00:00: 00 Yes 10mL Take 10 mL by mouth every 6 (six) hours as needed for Pain (scale 4-6). [facility] chlorhexidi ne 0.12 % mouthwash 11-03 00:00: 00 Yes 15mL Swish and spit out 15 mL 2 (two) times daily. [facility] Acetaminoph en-Codeine 120-12 mg/5 mL oral solution 11-03 00:00: 00 Yes 10mL Take 10 mL by mouth every 6 (six) hours as needed for Pain (scale 4-6). [facility] chlorhexidi ne 0.12 % mouthwash 11-03 00:00: 00 Yes 15mL Swish and spit out 15 mL 2 (two) times daily. [facility] atorvastati n 40 mg tablet TAKE 1 TABLET BY MOUTH IN EVENING ONCE A DAY FOR 90 DAYS atorvastati n 40 mg tablet TAKE 1 TABLET BY MOUTH IN EVENING ONCE A DAY FOR 90 DAYS No atorvastat in 40 mg tablet TAKE 1 TABLET BY MOUTH IN EVENING ONCE A DAY FOR 90 DAYS [facility] Eliquis 5 mg tablet TAKE 1 TABLET BY MOUTH TWICE A DAY FOR 90 DAYS 30 Eliquis 5 mg tablet TAKE 1 TABLET BY MOUTH TWICE A DAY FOR 90 DAYS 30 No Eliquis 5 mg tablet TAKE 1 TABLET BY MOUTH TWICE A DAY FOR 90 DAYS 30 [facility] eszopiclone 3 mg tablet TAKE 1 TABLET BY MOUTH IMMEDIATELY BEFORE BEDTIME NEEDED FOR SLEEP ONCE A DAY 30 DAYS eszopiclone 3 mg tablet TAKE 1 TABLET BY MOUTH IMMEDIATELY BEFORE BEDTIME NEEDED FOR SLEEP ONCE A DAY 30 DAYS No eszopiclon e 3 mg tablet TAKE 1 TABLET BY MOUTH IMMEDIATEL Y BEFORE BEDTIME NEEDED FOR SLEEP ONCE A DAY 30 DAYS [facility] fluocinonid e 0.05 % topical solution APPLY TO AREA ON SCALP ONCE DAILY NEEDED FOR ITCH fluocinonid e 0.05 % topical solution APPLY TO AREA ON SCALP ONCE DAILY NEEDED FOR ITCH No fluocinoni de 0.05 % topical solution APPLY TO AREA ON SCALP ONCE DAILY NEEDED FOR ITCH [facility] gabapentin 300 mg capsule TAKE 1 CAPSULE(S) 4 TIMES A DAY BY ORAL ROUTE WITH MEALS gabapentin 300 mg capsule TAKE 1 CAPSULE(S) 4 TIMES A DAY BY ORAL ROUTE WITH MEALS No gabapentin 300 mg capsule TAKE 1 CAPSULE(S) 4 TIMES A DAY BY ORAL ROUTE WITH MEALS [facility] ketoconazol e 2 % topical cream APPLY A SMALL AMOUNT TO AFFECTED SKIN ON BACK TWICE A DAY DIRECTED ketoconazol e 2 % topical cream APPLY A SMALL AMOUNT TO AFFECTED SKIN ON BACK TWICE A DAY DIRECTED No ketoconazo le 2 % topical cream APPLY A SMALL AMOUNT TO AFFECTED SKIN ON BACK TWICE A DAY DIRECTED [facility] levothyroxi ne 112 mcg tablet TAKE 1 TABLET BY MOUTH EVERY MORNING ON AN EMPTY STOMACH levothyroxi ne 112 mcg tablet TAKE 1 TABLET BY MOUTH EVERY MORNING ON AN EMPTY STOMACH No levothyrox ine 112 mcg tablet TAKE 1 TABLET BY MOUTH EVERY MORNING ON AN EMPTY STOMACH [facility] lorazepam 0.5 mg tablet TAKE 1 TABLET BY MOUTH 3 TIMES A DAY NEEDED FOR 30 DAYS lorazepam 0.5 mg tablet TAKE 1 TABLET BY MOUTH 3 TIMES A DAY NEEDED FOR 30 DAYS No lorazepam 0.5 mg tablet TAKE 1 TABLET BY MOUTH 3 TIMES A DAY NEEDED FOR 30 DAYS [facility] nortriptyli ne 75 mg capsule TAKE 2 CAPSULES BY MOUTH AT BEDTIME nortriptyli ne 75 mg capsule TAKE 2 CAPSULES BY MOUTH AT BEDTIME No nortriptyl ine 75 mg capsule TAKE 2 CAPSULES BY MOUTH AT BEDTIME [facility] Xarelto 20 mg tablet TAKE 1 TABLET BY MOUTH EVERY DAY WITH FOOD Xarelto 20 mg tablet TAKE 1 TABLET BY MOUTH EVERY DAY WITH FOOD No Xarelto 20 mg tablet TAKE 1 TABLET BY MOUTH EVERY DAY WITH FOOD [facility] atorvastati n 40 mg tablet TAKE 1 TABLET BY MOUTH EVERY EVENING atorvastati n 40 mg tablet TAKE 1 TABLET BY MOUTH EVERY EVENING No atorvastat in 40 mg tablet TAKE 1 TABLET BY MOUTH EVERY EVENING [facility] Eliquis 5 mg tablet TAKE 1 TABLET BY MOUTH TWICE A DAY FOR 90 DAYS 30 Eliquis 5 mg tablet TAKE 1 TABLET BY MOUTH TWICE A DAY FOR 90 DAYS 30 No Eliquis 5 mg tablet TAKE 1 TABLET BY MOUTH TWICE A DAY FOR 90 DAYS 30 [facility] eszopiclone 3 mg tablet TAKE 1 TABLET BY MOUTH IMMEDIATELY BEFORE BEDTIME NEEDED FOR SLEEP ONCE A DAY 30 DAYS eszopiclone 3 mg tablet TAKE 1 TABLET BY MOUTH IMMEDIATELY BEFORE BEDTIME NEEDED FOR SLEEP ONCE A DAY 30 DAYS No eszopiclon e 3 mg tablet TAKE 1 TABLET BY MOUTH IMMEDIATEL Y BEFORE BEDTIME NEEDED FOR SLEEP ONCE A DAY 30 DAYS [facility] fluocinonid e 0.05 % topical solution APPLY TO AREA ON SCALP ONCE DAILY NEEDED FOR ITCH fluocinonid e 0.05 % topical solution APPLY TO AREA ON SCALP ONCE DAILY NEEDED FOR ITCH No fluocinoni de 0.05 % topical solution APPLY TO AREA ON SCALP ONCE DAILY NEEDED FOR ITCH [facility] gabapentin 300 mg capsule TAKE 1 CAPSULE BY MOUTH 4 TIMES A DAY WITH MEALS gabapentin 300 mg capsule TAKE 1 CAPSULE BY MOUTH 4 TIMES A DAY WITH MEALS No gabapentin 300 mg capsule TAKE 1 CAPSULE BY MOUTH 4 TIMES A DAY WITH MEALS [facility] ketoconazol e 2 % shampoo PLEASE SEE ATTACHED FOR DETAILED DIRECTIONS ketoconazol e 2 % shampoo PLEASE SEE ATTACHED FOR DETAILED DIRECTIONS No ketoconazo le 2 % shampoo PLEASE SEE ATTACHED FOR DETAILED DIRECTIONS [facility] ketoconazol e 2 % topical cream APPLY A SMALL AMOUNT TO AFFECTED SKIN ON BACK TWICE A DAY DIRECTED ketoconazol e 2 % topical cream APPLY A SMALL AMOUNT TO AFFECTED SKIN ON BACK TWICE A DAY DIRECTED No ketoconazo le 2 % topical cream APPLY A SMALL AMOUNT TO AFFECTED SKIN ON BACK TWICE A DAY DIRECTED [facility] levothyroxi ne 100 mcg tablet TAKE 1 TABLET BY MOUTH EVERY DAY IN THE MORNING ON EMPTY STOMACH FOR 30 DAYS levothyroxi ne 100 mcg tablet TAKE 1 TABLET BY MOUTH EVERY DAY IN THE MORNING ON EMPTY STOMACH FOR 30 DAYS No levothyrox ine 100 mcg tablet TAKE 1 TABLET BY MOUTH EVERY DAY IN THE MORNING ON EMPTY STOMACH FOR 30 DAYS [facility] levothy[facility]xi [facility] 112 mcg tablet TAKE 1 TABLET BY MOUTH EVERY MORNING ON AN EMPTY STOMACH levothyroxi ne 112 mcg tablet TAKE 1 TABLET BY MOUTH EVERY MORNING ON AN EMPTY STOMACH No levothyrox ine 112 mcg tablet TAKE 1 TABLET BY MOUTH EVERY MORNING ON AN EMPTY STOMACH [facility] lorazepam 0.5 mg tablet TAKE 1 TABLET BY MOUTH 3 TIMES A DAY NEEDED FOR 30 DAYS lorazepam 0.5 mg tablet TAKE 1 TABLET BY MOUTH 3 TIMES A DAY NEEDED FOR 30 DAYS No lorazepam 0.5 mg tablet TAKE 1 TABLET BY MOUTH 3 TIMES A DAY NEEDED FOR 30 DAYS [facility] nortriptyli ne 75 mg capsule TAKE 2 CAPSULES BY MOUTH AT BEDTIME nortriptyli ne 75 mg capsule TAKE 2 CAPSULES BY MOUTH AT BEDTIME No nortriptyl ine 75 mg capsule TAKE 2 CAPSULES BY MOUTH AT BEDTIME [facility] quetiapine 400 mg tablet TAKE 1 TABLET BY MOUTH EVERYDAY AT BEDTIME quetiapine 400 mg tablet TAKE 1 TABLET BY MOUTH EVERYDAY AT BEDTIME No quetiapine 400 mg tablet TAKE 1 TABLET BY MOUTH EVERYDAY AT BEDTIME [facility] Xarelto 20 mg tablet TAKE 1 TABLET BY MOUTH EVERY DAY WITH FOOD Xarelto 20 mg tablet TAKE 1 TABLET BY MOUTH EVERY DAY WITH FOOD No Xarelto 20 mg tablet TAKE 1 TABLET BY MOUTH EVERY DAY WITH FOOD [facility] atorvastati n 40 mg tablet TAKE 1 TABLET BY MOUTH EVERY DAY IN THE EVENING atorvastati n 40 mg tablet TAKE 1 TABLET BY MOUTH EVERY DAY IN THE EVENING No atorvastat in 40 mg tablet TAKE 1 TABLET BY MOUTH EVERY DAY IN THE EVENING [facility] Eliquis 5 mg tablet TAKE 1 TABLET BY MOUTH TWICE A DAY Eliquis 5 mg tablet TAKE 1 TABLET BY MOUTH TWICE A DAY No Eliquis 5 mg tablet TAKE 1 TABLET BY MOUTH TWICE A DAY [facility] eszopiclone 3 mg tablet TAKE 1 TABLET BY MOUTH IMMEDIATELY BEFORE BEDTIME NEEDED FOR SLEEP ONCE A DAY 30 DAYS eszopiclone 3 mg tablet TAKE 1 TABLET BY MOUTH IMMEDIATELY BEFORE BEDTIME NEEDED FOR SLEEP ONCE A DAY 30 DAYS No eszopiclon e 3 mg tablet TAKE 1 TABLET BY MOUTH IMMEDIATEL Y BEFORE BEDTIME NEEDED FOR SLEEP ONCE A DAY 30 DAYS [facility] gabapentin 300 mg capsule TAKE 1 CAPSULE BY MOUTH 4 TIMES A DAY WITH MEALS gabapentin 300 mg capsule TAKE 1 CAPSULE BY MOUTH 4 TIMES A DAY WITH MEALS No gabapentin 300 mg capsule TAKE 1 CAPSULE BY MOUTH 4 TIMES A DAY WITH MEALS [facility] levothyroxi ne 112 mcg tablet TAKE 1 TABLET BY MOUTH EVERY MORNING ON AN EMPTY STOMACH levothyroxi ne 112 mcg tablet TAKE 1 TABLET BY MOUTH EVERY MORNING ON AN EMPTY STOMACH No levothyrox ine 112 mcg tablet TAKE 1 TABLET BY MOUTH EVERY MORNING ON AN EMPTY STOMACH [facility] lorazepam 0.5 mg tablet TAKE 1 TABLET BY MOUTH THREE TIMES A DAY NEEDED lorazepam 0.5 mg tablet TAKE 1 TABLET BY MOUTH THREE TIMES A DAY NEEDED No lorazepam 0.5 mg tablet TAKE 1 TABLET BY MOUTH THREE TIMES A DAY NEEDED [facility] nortriptyli ne 75 mg capsule TAKE 2 CAPSULES BY MOUTH AT BEDTIME nortriptyli ne 75 mg capsule TAKE 2 CAPSULES BY MOUTH AT BEDTIME No nortriptyl ine 75 mg capsule TAKE 2 CAPSULES BY MOUTH AT BEDTIME [facility] quetiapine 400 mg tablet TAKE 1 TABLET BY MOUTH EVERYDAY AT BEDTIME quetiapine 400 mg tablet TAKE 1 TABLET BY MOUTH EVERYDAY AT BEDTIME No quetiapine 400 mg tablet TAKE 1 TABLET BY MOUTH EVERYDAY AT BEDTIME [facility] atorvastati n 40 mg tablet TAKE 1 TABLET BY MOUTH EVERY DAY IN THE EVENING atorvastati n 40 mg tablet TAKE 1 TABLET BY MOUTH EVERY DAY IN THE EVENING No atorvastat in 40 mg tablet TAKE 1 TABLET BY MOUTH EVERY DAY IN THE EVENING [facility] donepezil 5 mg tablet TAKE 1 TABLET BY MOUTH EVERY DAY AT BEDTIME FOR 30 DAYS donepezil 5 mg tablet TAKE 1 TABLET BY MOUTH EVERY DAY AT BEDTIME FOR 30 DAYS No donepezil 5 mg tablet TAKE 1 TABLET BY MOUTH EVERY DAY AT BEDTIME FOR 30 DAYS [facility] Eliquis 5 mg tablet TAKE 1 TABLET BY MOUTH TWICE A DAY Eliquis 5 mg tablet TAKE 1 TABLET BY MOUTH TWICE A DAY No Eliquis 5 mg tablet TAKE 1 TABLET BY MOUTH TWICE A DAY [facility] eszopiclone 3 mg tablet TAKE 1 TABLET BY MOUTH IMMEDIATELY BEFORE BEDTIME NEEDED FOR SLEEP ONCE A DAY 30 DAYS eszopiclone 3 mg tablet TAKE 1 TABLET BY MOUTH IMMEDIATELY BEFORE BEDTIME NEEDED FOR SLEEP ONCE A DAY 30 DAYS No eszopiclon e 3 mg tablet TAKE 1 TABLET BY MOUTH IMMEDIATEL Y BEFORE BEDTIME NEEDED FOR SLEEP ONCE A DAY 30 DAYS [facility] gabapentin 300 mg capsule TAKE 1 CAPSULE BY MOUTH 4 TIMES A DAY WITH MEALS gabapentin 300 mg capsule TAKE 1 CAPSULE BY MOUTH 4 TIMES A DAY WITH MEALS No gabapentin 300 mg capsule TAKE 1 CAPSULE BY MOUTH 4 TIMES A DAY WITH MEALS [facility] levothyroxi ne 112 mcg tablet TAKE 1 TABLET BY MOUTH EVERY MORNING ON AN EMPTY STOMACH levothyroxi ne 112 mcg tablet TAKE 1 TABLET BY MOUTH EVERY MORNING ON AN EMPTY STOMACH No levothyrox ine 112 mcg tablet TAKE 1 TABLET BY MOUTH EVERY MORNING ON AN EMPTY STOMACH [facility] lorazepam 0.5 mg tablet TAKE 1 TABLET BY MOUTH THREE TIMES A DAY NEEDED lorazepam 0.5 mg tablet TAKE 1 TABLET BY MOUTH THREE TIMES A DAY NEEDED No lorazepam 0.5 mg tablet TAKE 1 TABLET BY MOUTH THREE TIMES A DAY NEEDED [facility] nortriptyli ne 75 mg capsule TAKE 2 CAPSULES BY MOUTH AT BEDTIME nortriptyli ne 75 mg capsule TAKE 2 CAPSULES BY MOUTH AT BEDTIME No nortriptyl ine 75 mg capsule TAKE 2 CAPSULES BY MOUTH AT BEDTIME [facility] quetiapine 400 mg tablet TAKE 1 TABLET BY MOUTH EVERYDAY AT BEDTIME quetiapine 400 mg tablet TAKE 1 TABLET BY MOUTH EVERYDAY AT BEDTIME No quetiapine 400 mg tablet TAKE 1 TABLET BY MOUTH EVERYDAY AT BEDTIME [facility] atorvastati n 40 mg tablet TAKE 1 TABLET BY MOUTH EVERY DAY IN THE EVENING atorvastati n 40 mg tablet TAKE 1 TABLET BY MOUTH EVERY DAY IN THE EVENING No atorvastat in 40 mg tablet TAKE 1 TABLET BY MOUTH EVERY DAY IN THE EVENING [facility] donepezil 5 mg tablet TAKE 1 TABLET BY MOUTH EVERY DAY AT BEDTIME FOR 90 DAYS donepezil 5 mg tablet TAKE 1 TABLET BY MOUTH EVERY DAY AT BEDTIME FOR 90 DAYS No donepezil 5 mg tablet TAKE 1 TABLET BY MOUTH EVERY DAY AT BEDTIME FOR 90 DAYS [facility] Eliquis 5 mg tablet TAKE 1 TABLET BY MOUTH TWICE A DAY Eliquis 5 mg tablet TAKE 1 TABLET BY MOUTH TWICE A DAY No Eliquis 5 mg tablet TAKE 1 TABLET BY MOUTH TWICE A DAY [facility] eszopiclone 3 mg tablet TAKE 1 TABLET BY MOUTH IMMEDIATELY BEFORE BEDTIME NEEDED FOR SLEEP ONCE A DAY 30 DAYS eszopiclone 3 mg tablet TAKE 1 TABLET BY MOUTH IMMEDIATELY BEFORE BEDTIME NEEDED FOR SLEEP ONCE A DAY 30 DAYS No eszopiclon e 3 mg tablet TAKE 1 TABLET BY MOUTH IMMEDIATEL Y BEFORE BEDTIME NEEDED FOR SLEEP ONCE A DAY 30 DAYS [facility] gabapentin 300 mg capsule TAKE 1 CAPSULE BY MOUTH 4 TIMES A DAY WITH MEALS gabapentin 300 mg capsule TAKE 1 CAPSULE BY MOUTH 4 TIMES A DAY WITH MEALS No gabapentin 300 mg capsule TAKE 1 CAPSULE BY MOUTH 4 TIMES A DAY WITH MEALS [facility] levothyroxi ne 100 mcg tablet TAKE 1 TABLET BY MOUTH EVERY DAY IN THE MORNING ON EMPTY STOMACH levothyroxi ne 100 mcg tablet TAKE 1 TABLET BY MOUTH EVERY DAY IN THE MORNING ON EMPTY STOMACH No levothyrox ine 100 mcg tablet TAKE 1 TABLET BY MOUTH EVERY DAY IN THE MORNING ON EMPTY STOMACH [facility] levothyroxi ne 112 mcg tablet TAKE 1 TABLET BY MOUTH EVERY MORNING ON AN EMPTY STOMACH levothyroxi ne 112 mcg tablet TAKE 1 TABLET BY MOUTH EVERY MORNING ON AN EMPTY STOMACH No levothyrox ine 112 mcg tablet TAKE 1 TABLET BY MOUTH EVERY MORNING ON AN EMPTY STOMACH [facility] lorazepam 0.5 mg tablet TAKE 1 TABLET BY MOUTH TWICE A DAY lorazepam 0.5 mg tablet TAKE 1 TABLET BY MOUTH TWICE A DAY No lorazepam 0.5 mg tablet TAKE 1 TABLET BY MOUTH TWICE A DAY [facility] nitrofurant oin monohydrate /macrocryst als 100 mg capsule TAKE 1 CAPSULE BY MOUTH EVERY 12 HOURS FOR 7 DAYS WITH FOOD nitrofurant oin monohydrate /macrocryst als 100 mg capsule TAKE 1 CAPSULE BY MOUTH EVERY 12 HOURS FOR 7 DAYS WITH FOOD No nitrofuran toin monohydrat e/macrocry stals 100 mg capsule TAKE 1 CAPSULE BY MOUTH EVERY 12 HOURS FOR 7 DAYS WITH FOOD [facility] nortriptyli ne 75 mg capsule TAKE 2 CAPSULES BY MOUTH AT BEDTIME nortriptyli ne 75 mg capsule TAKE 2 CAPSULES BY MOUTH AT BEDTIME No nortriptyl ine 75 mg capsule TAKE 2 CAPSULES BY MOUTH AT BEDTIME [facility] quetiapine 400 mg tablet TAKE 1 TABLET BY MOUTH EVERYDAY AT BEDTIME quetiapine 400 mg tablet TAKE 1 TABLET BY MOUTH EVERYDAY AT BEDTIME No quetiapine 400 mg tablet TAKE 1 TABLET BY MOUTH EVERYDAY AT BEDTIME [facility] atorvastati n 40 mg tablet TAKE 1 TABLET BY MOUTH EVERY DAY IN THE EVENING atorvastati n 40 mg tablet TAKE 1 TABLET BY MOUTH EVERY DAY IN THE EVENING No atorvastat in 40 mg tablet TAKE 1 TABLET BY MOUTH EVERY DAY IN THE EVENING [facility] cefdinir 250 mg/5 mL oral suspension GIVE 6ML BY MOUTH TWO TIMES DAILY FOR 10 DAYS cefdinir 250 mg/5 mL oral suspension GIVE 6ML BY MOUTH TWO TIMES DAILY FOR 10 DAYS No cefdinir 250 mg/5 mL oral suspension GIVE 6ML BY MOUTH TWO TIMES DAILY FOR 10 DAYS [facility] donepezil 5 mg tablet TAKE 1 TABLET BY MOUTH EVERY DAY AT BEDTIME FOR 90 DAYS donepezil 5 mg tablet TAKE 1 TABLET BY MOUTH EVERY DAY AT BEDTIME FOR 90 DAYS No donepezil 5 mg tablet TAKE 1 TABLET BY MOUTH EVERY DAY AT BEDTIME FOR 90 DAYS [facility] Eliquis 5 mg tablet TAKE 1 TABLET BY MOUTH TWICE A DAY Eliquis 5 mg tablet TAKE 1 TABLET BY MOUTH TWICE A DAY No Eliquis 5 mg tablet TAKE 1 TABLET BY MOUTH TWICE A DAY [facility] eszopiclone 3 mg tablet TAKE 1 TABLET BY MOUTH IMMEDIATELY BEFORE BEDTIME NEEDED FOR SLEEP ONCE A DAY eszopiclone 3 mg tablet TAKE 1 TABLET BY MOUTH IMMEDIATELY BEFORE BEDTIME NEEDED FOR SLEEP ONCE A DAY No eszopiclon e 3 mg tablet TAKE 1 TABLET BY MOUTH IMMEDIATEL Y BEFORE BEDTIME NEEDED FOR SLEEP ONCE A DAY [facility] gabapentin 300 mg capsule TAKE 1 CAPSULE BY MOUTH 4 TIMES A DAY WITH MEALS gabapentin 300 mg capsule TAKE 1 CAPSULE BY MOUTH 4 TIMES A DAY WITH MEALS No gabapentin 300 mg capsule TAKE 1 CAPSULE BY MOUTH 4 TIMES A DAY WITH MEALS [facility] levothyroxi ne 100 mcg tablet TAKE 1 TABLET BY MOUTH EVERY DAY IN THE MORNING ON EMPTY STOMACH FOR 90 DAYS levothyroxi ne 100 mcg tablet TAKE 1 TABLET BY MOUTH EVERY DAY IN THE MORNING ON EMPTY STOMACH FOR 90 DAYS No levothyrox ine 100 mcg tablet TAKE 1 TABLET BY MOUTH EVERY DAY IN THE MORNING ON EMPTY STOMACH FOR 90 DAYS [facility] levothyroxi ne 112 mcg tablet TAKE 1 TABLET BY MOUTH EVERY MORNING ON AN EMPTY STOMACH levothyroxi ne 112 mcg tablet TAKE 1 TABLET BY MOUTH EVERY MORNING ON AN EMPTY STOMACH No levothyrox ine 112 mcg tablet TAKE 1 TABLET BY MOUTH EVERY MORNING ON AN EMPTY STOMACH [facility] lorazepam 0.5 mg tablet TAKE 1 TABLET BY MOUTH THREE TIMES A DAY FOR 30 DAYS lorazepam 0.5 mg tablet TAKE 1 TABLET BY MOUTH THREE TIMES A DAY FOR 30 DAYS No lorazepam 0.5 mg tablet TAKE 1 TABLET BY MOUTH THREE TIMES A DAY FOR 30 DAYS [facility] neomycin-po lymyxin-hyd rocort 3.5 mg/mL-10,00 0 unit/mL-1 % ear solution INSTILL 4 DROPS INTO AFFECTED EAR 3 TIMES A DAY neomycin-po lymyxin-hyd rocort 3.5 mg/mL-10,00 0 unit/mL-1 % ear solution INSTILL 4 DROPS INTO AFFECTED EAR 3 TIMES A DAY No neomycin-p olymyxin-h ydrocort 3.5 mg/mL-10,0 00 unit/mL-1 % ear solution INSTILL 4 DROPS INTO AFFECTED EAR 3 TIMES A DAY [facility] nitrofurant oin monohydrate /macrocryst als 100 mg capsule TAKE 1 CAPSULE BY MOUTH EVERY 12 HOURS FOR 7 DAYS WITH FOOD nitrofurant oin monohydrate /macrocryst als 100 mg capsule TAKE 1 CAPSULE BY MOUTH EVERY 12 HOURS FOR 7 DAYS WITH FOOD No nitrofuran toin monohydrat e/macrocry stals 100 mg capsule TAKE 1 CAPSULE BY MOUTH EVERY 12 HOURS FOR 7 DAYS WITH FOOD [facility] nortriptyli ne 75 mg capsule TAKE 2 CAPSULES BY MOUTH AT BEDTIME nortriptyli ne 75 mg capsule TAKE 2 CAPSULES BY MOUTH AT BEDTIME No nortriptyl ine 75 mg capsule TAKE 2 CAPSULES BY MOUTH AT BEDTIME [facility] quetiapine 400 mg tablet TAKE 1 TABLET BY MOUTH EVERY DAY AT BEDTIME quetiapine 400 mg tablet TAKE 1 TABLET BY MOUTH EVERY DAY AT BEDTIME No quetiapine 400 mg tablet TAKE 1 TABLET BY MOUTH EVERY DAY AT BEDTIME [facility] Vital Signs Vital Name Observation Time Observation Value Comments S alban Weight 2022-11-30 18:24:00 65.63 KG Height 2022-11-30 10:47:00 170.18 CM Weight 2022-11-30 10:47:00 65.63 KG Systolic blood pressure 2022-10-21 18:34:00 133 mm[Hg] [facility] Diastolic blood pressure 2022-10-21 18:34:00 81 mm[Hg] [facility] Heart rate 2022-10-21 18:34:00 94 /min [facility] Body temperature 2022-10-21 18:34:00 36.89 Sher[facility] Respiratory rate 2022-10-21 18:34:00 18 /min [facility] Body height 2022-10-21 18:34:00 172.7 cm [facility] Body weight 2022-10-21 18:34:00 65.772 kg [facility] BMI 2022-10-21 18:34:00 22.05 kg/m2 [facility] Oxygen saturation in Arterial blood by Pulse oximetry 2022-10-21 18:34:00 97 /min [facility] BP Diastolic 2022-08-23 00:00:00 85 mm[Hg] [facility] [place] [facility] Height 2022-08-23 00:00:00 67 [in_i] [place] [facility] BMI (Body Mass Index) 2022-08-23 00:00:00 22.9 kg/m2 [place] [facility] BP Systolic 2022-08-23 00:00:00 121 mm[Hg] De Leon herman [facility] Body Weight 2022-08-23 00:00:00 146 [lb_av] [facility] BP Diastolic 2022-05-19 00:00:00 84 mm[Hg] [facility] Height 2022-05-19 00:00:00 67 [in_i] [facility] BMI (Body Mass Index) 2022-05-19 00:00:00 25.8 kg/m2 [place] [facility] BP Systolic 2022-05-19 00:00:00 131 mm[Hg] [facility] Body Weight 2022-05-19 00:00:00 165 [lb_av] [facility] BP Diastolic 2021-11-09 00:00:00 83 mm[Hg] [facility] BP Systolic 2021-11-09 00:00:00 125 mm[Hg] [facility] Body Weight 2021-11-09 00:00:00 176.2 [lb_av] [place] [facility] [facility] Height 2019-08-24 00:00:00 67 [in_i] Howie mart[facility] BMI (Body Mass Index) 2019-08-24 00:00:00 30.9 kg/m2 [place] [facility] Body Weight 2019-08-24 00:00:00 197 [lb_av] Luis Enrique [facility] Procedures Procedure Date / Time Performed Performing Clinicia n Source XR SACRUM AND COCCYX 2022-10-21 19:07:13 Carleen Newman [facility] ASSIGNMENT OF BENEFITS 2022-10-21 18:24:12 Docto r Unassigned, [place] [facility] REFERRAL- REQUEST/RESPONSE 2021-06-14 06:01:00 Doctor Unassigned, [place] [facility] Encounters Start Date/Time End Date/Time Encounter Type Admission Type Attending Clinicians Care Facility Care Department Encounter ID Source 2022-11-01 11:04:01 Outpatient EatonNgoc davidson [facility] [id number] [facility] 2022-10-31 13:56:01 Outpatient EatonNgoc davidson [facility] [id number] [facility] 2022-10-27 16:04:00 Outpatient EatonNgoc davidson [facility] [id number] [facility] 2022-07-07 09:11:03 Outpatient Ngoc Lipscomb [facility] [id number] [facility] 2022-04-20 13:33:01 Outpatient DeisiNgoc [facility] [id number] [facility] 2022-04-05 09:11:02 Outpatient DeisiNgoc [facility] [id number] [facility] 2022-02-24 10:21:04 Outpatient DeisiNgoc [facility] [id number] [facility] 2022-01-03 10:49:[address] [facility] [id number] [facility] 2021-08-25 14:13:[address] [facility] [id number] [facility] 2021-08-18 07:48:01 Outpatient Ngoc Lipscomb [facility] [id number] [facility] 2021-07-02 10:05:04 Outpatient Ngoc Lipscomb [facility] [id number] [facility] 2022-11-30 00:43:00 2022-12-09 14:50:00 Inpatient E JOAQUIN ELDRIDGE MATTHEW [facility] [id number] [facility] 2022-11-29 19:43:00 2022-11-29 19:43:00 Emergency E [facility] [id number] [facility] 2022-11-24 00:00:00 2022-11-24 00:00:00 Outpatient CLARITA_RUDY H [facility] [id number] [facility] 2022-11-24 00:00:00 2022-11-24 00:00:00 Phuong Romeo MD: [address] [place] [phone] , Ph. [phone] [facility] [id number] [facility] 2022-10-21 13:41:30 2022-10-21 23:59:00 Outpatient BRENDA GUZMÁN [facility] [id number] [facility] 2022-10-21 13:41:30 2022-10-21 23:59:00 Hospital Encounter Brenda Newman [facility] [id number] [facility] 2022-10-21 13:20:00 2022-10-21 14:41:13 Urgent Care Brenda Newman Unknown, Attending [facility] [id number]..[id number] [facility] 2022-10-21 00:00:00 2022-10-21 00:00:00 Orders Only Doctor Unassigned, [place] [facility] [id number]..[id number] [facility] 2022-08-23 00:00:00 2022-08-23 00:00:00 Phuong Romeo MD: [address] [place] [phone] , Ph. [phone] [facility] [id number] [facility] 2022-08-17 00:00:00 2022-08-17 00:00:00 Outpatient PATEL_NILES H [facility] [id number] [facility] 2022-08-17 00:00:00 2022-08-17 00:00:00 Outpatient PATEL_NILES H [facility] [id number] [facility] 2022-08-05 00:00:00 2022-08-05 00:00:00 Outpatient PATEL_NILES H [facility] [id number] [facility] 2022-06-02 00:00:00 2022-06-02 00:00:00 Outpatient PATEL_NILES H [facility] [id number] [facility] 2022-06-02 00:00:00 2022-06-02 00:00:00 Outpatient PATEL_NILES H [facility] [id number] [facility] 2022-06-02 00:00:00 2022-06-02 00:00:00 Outpatient PATEL_NILES H [facility] [id number] [facility] 2022-06-02 00:00:00 2022-06-02 00:00:00 Outpatient PATEL_NILES H [facility] [id number] [facility] 2022-06-02 00:00:00 2022-06-02 00:00:00 Outpatient PATEL_NILES H [facility] [id number] [facility] 2022-06-02 00:00:00 2022-06-02 00:00:00 Phuong Romeo MD: [address] [place] [address] , Ph. [phone] [facility] [place] [facility] [id number] [facility] 2022-05-19 00:00:00 2022-05-19 00:00:00 Phuong Romeo MD: [address] [place] [address] , Ph. [phone] [facility] [place] [facility] [place] [facility] [id number] [facility] 2022-03-31 00:00:00 2022-03-31 00:00:00 Outpatient PATEL_NILES H [facility] [id number] [facility] 2022-03-31 00:00:00 2022-03-31 00:00:00 Outpatient PATEL_NILES H [facility] [id number] [facility] 2022-02-10 00:00:00 2022-02-10 00:00:00 Outpatient PATEL_NILES H [facility] [id number] [facility] 2022-02-10 00:00:00 2022-02-10 00:00:00 Phuong Romeo MD: [place] [address] , Ph. [phone] [facility] [id number] [facility] 2021-11-09 00:00:00 2021-11-09 00:00:00 Outpatient PATEL_NILES H [facility] [id number] [facility] 2021-11-09 00:00:00 2021-11-09 00:00:00 Phuong Romeo MD: [place] [phone] , Ph. [phone] [facility] [id number] [facility] 2021-07-16 14:30:00 2021-07-16 14:30:00 Outpatient HARPAL RASCON [facility] [id number] [facility] 2021-06-14 00:00:00 2021-06-14 00:00:00 Orders Only Doctor Unassigned, [place] [facility] [id number] [facility] 2021-05-22 09:58:00 2021-05-22 09:58:00 Outpatient PATEL_NILES H [facility] [id number] [facility] 2021-05-22 00:00:00 2021-05-22 00:00:00 Phuong Romeo MD: [place] [address] , Ph. [phone] [facility] [place] [facility] [id number] [facility] 2021-02-22 09:04:00 2021-02-22 09:04:00 Outpatient PATEL_NILES H [facility] [id number] [facility] 2021-02-20 12:29:00 2021-02-20 12:29:00 Outpatient PATEL_NILES H [facility] [id number] [facility] 2021-02-20 00:00:00 2021-02-20 00:00:00 Phuong Romeo MD: [address] [place] [address] , Ph. [phone] [facility] [place] [facility] [id number] [facility] 2020-11-21 11:39:00 2020-11-21 11:39:00 Outpatient PATEL_NILES H [facility] [id number] [facility] 2020-11-21 00:00:00 2020-11-21 00:00:00 Phuong Romeo MD: [address] [place] [address] , Ph. [phone] [facility] [place] [facility] [id number] [facility] 2020-08-22 12:10:00 2020-08-22 12:10:00 Outpatient PATEL_NILES H [facility] [id number] [facility] 2020-08-22 00:00:00 2020-08-22 00:00:00 Phuong Romeo MD: [address] [place] [address] , Ph. [phone] [facility] [place] [facility] [place] [facility] [id number] [facility] 2020-05-30 12:32:00 2020-05-30 12:32:00 Outpatient PATEL_NILES H [facility] [id number] [facility] 2020-05-30 00:00:00 2020-05-30 00:00:00 Phuong Romeo MD: [address] [place] [address] , Ph. [phone] [facility] [place] [facility] [id number] [facility] 2020-02-29 12:16:00 2020-02-29 12:16:00 Outpatient PATEL_NILES H [facility] [id number] [facility] 2020-02-29 00:00:00 2020-02-29 00:00:00 Phuong Romeo MD: [address] [place] [address] , Ph. [phone] [facility] [place] [facility] [id number] [facility] 2019-11-23 12:29:00 2019-11-23 12:29:00 Outpatient PATEL_NILES H [facility] [id number] [facility] 2019-11-23 00:00:00 2019-11-23 00:00:00 Phuong Romeo MD: [address] [place] [address] , Ph. [phone] [facility] [place] [facility] [id number] [facility] 2019-09-18 12:40:00 2019-09-18 12:40:00 Outpatient PATEL_NILES H [facility] [id number] [facility] 2019-08-24 10:55:00 2019-08-24 10:55:00 Outpatient PATEL_NILES H [facility] [id number] [facility] 2019-08-24 00:00:00 2019-08-24 00:00:00 Phuong Romeo MD: [address] [place] [phone] , Ph. [phone] [facility] [place] [facility] [id number] [facility] 2019-05-18 09:59:00 2019-05-18 09:59:00 Outpatient PATEL_NILES H [facility] [id number] [facility] 2019-05-18 00:00:00 2019-05-18 00:00:00 Phuong Romeo MD: [address] [place] [phone] , Ph. [phone] [facility] [place] [facility] [id number] [facility] 2019-03-14 12:15:00 2019-03-14 12:15:00 Outpatient PATEL_NILES H [facility] [id number] [facility] 2019-01-26 00:00:00 2019-01-26 00:00:00 Phuong Romeo MD: [address] [place] [phone] , Ph. [phone] [facility] [place] [facility] [id number] [facility] 2018-10-31 00:00:00 2018-10-31 00:00:00 Orders Only Doctor Unassigned, [place] [facility] [id number] Results Test Description Test Time Test Comments Results Result Co mments Source BASIC METABOLIC [id number] 11:43:00* Test Item Value Reference Range Interpretation Comme nts GLUCOSE (test code = 06D) 92 mg/dL 75-100 SODIUM (test code = 01A) 135 mmol/L 136-145 L POTASSIUM (test code = 01B) 4.2 mmol/L 3.6-5.1 CHLORIDE (test code = 04A) 100 mmol/L 98-107 CO2 (test code = 02A) 30 mmol/L 20-31 ANION GAP (test code = ANG) 9.4 mmol/L BUN (test code = 05D) 7 mg/dL 9-23 L CREATININE (test code = 03E) 0.7 mg/dL 0.6-1.0 GFR (test code = GFR) 87 mL/min/1.73m\S\2 See_Comment L [Automated message] The system which generated this result transmitted reference range: >=90. The reference range was not used to interpret this result as normal/abnormal. GFR (test code = GFRAA) 101 mL/min/1.73m\S\2 See_Comment [Automated message] The system which generated this result transmitted reference range: >=90. The reference range was not used to interpret this result as normal/abnormal. EGFR (test code = EGFR) eGFR BY CKD-EPI CALCULATION IS NOT RECOMMENDED FOR PATIENTS UNDER 18 YEARS OF AGE. BUN/CREA (test code = BCR) 10 12-20 L CALCIUM (test code = 09D) 9.5 mg/dL 8.3-10.6 CBC (INCLUDES AUTOMATED DIFFERENTIAL)2022-12-01 11:28:00* Test Item Value Reference Range Interpretation Comme nts WBC (test code = WBC) 8.1 10\S\3/uL [...] MORPH (test code = RBCMOR) NORMAL B12 [id number] 03:45:00* Test Item Value Reference Range Interpretation Comme nts VIT B12 (test code = A60) 555.0 pg/mL 211.0-911.0 THYROID PANEL/SCREEN (TSH)2022-11-30 03:45:00* Test Item Value Reference Range Interpretation Comme nts TSH (test code = A57) 1.495 uIU/mL 0.550-4.780 [id number] 03:43:00* Test Item Value Reference Range Interpretation Comme [facility] FOLATE (test code = A75) 14.1 ng/mL See_Comment [Automated [place]] The system which generated this result transmitted reference range: >=5.5. The reference range was not used to interpret this result as normal/abnormal. LIPID [id number] 02:01:00* Test Item Value Reference Range Interpretation Comme nts CHOLESTROL (test code = 44A) 158 mg/dL 140-200 TRIGLYCERI (test code = 42B) 214 mg/dL See_Comment H [Automated [place]] The system which generated this result transmitted reference range: <=149. The reference range was not used to interpret this result as normal/abnormal. HDL (test code = 83D) 55.5 mg/dL 40.0-60.0 LDL (test code = 34B) 74 mg/dL See_Comment [A utomated message] The system which generated this result transmitted reference range: <=99. The reference range was not used to interpret this result as normal/abnormal. CHL/HDL (test code = CHR) 2.8 0.0-3.4 [id number] 02:01:00* Test Item Value Reference Range Interpretation Comme [facility] MAGNESIUM (test code = 48A) 2.0 mg/dL 1.6-2.6 [id number] 02:00:00* Test Item Value Reference Range Interpretation Comme [facility] PREALBUMIN (test code = 08E) 37 mg/dL 10-40 [id number] 01:57:00* Test Item Value Reference Range Interpretation Comme [facility] Hb A1C % (test code = HBA) 5.2 % 3.8-6.4 A1C % (test code = A1C) HbA1c (% ) Reference Range Normal <5.7 Prediabetes 5.7-6.4 Diabetic >=6.5 CT HEAD W/O [id number] 22:40:[address] [facility] : 1950 Sex: FCT headHistory: Paranoid disorder;bizarre paranoid behaviorComparison: None at this timeLocation: [id number]: Noncontrast CT scan of the head was performed. One or more of the following radiation dose reductiontechniques was used: automated exposure control, adjustment of [...] Son Arevalo MD 11/29/2022 10:40 PM CDT [id number] 21:38:00* Test Item Value Reference Range Interpretation Comme nts BILI TOTAL (test code = 11A) 0.3 mg/dL 0.2-1.0 BILI DIRCT (test code = 12A) <0.1 mg/dL 0.0-0.3 PROTEIN (test code = 07D) 7.9 g/dL 5.7-8.2 ALBUMIN (test code = 08D) 5.0 g/dL 3.2-4.8 H GLOBULIN (test code = GLB) 2.9 g/dL 1.5-3.8 ALB/GLOB (test code = AGRR) 1.7 1.0-2.6 ALK PHOS (test code = 35A) 120 IU/L 46-116 H AST (test code = 30A) 27 IU/L See_Comment [Automated [employer]] The system which generated this result transmitted reference range: <=33. The reference range was not used to interpret this result as normal/abnormal. ALT (test code = 31A) 21 IU/L 10-49 SARS-CoV (RAPID ANTIGEN)2022-11-29 21:37:00* Test Item Value Reference Range Interpretation Comme nts SARS-CoV (ANTIGEN) (test code = COVAG) NEGATIVE NEGATIVE COVID AG (test code = COVAGC) This test has been marketed under the FDA Emergency Use Authorization (EUA) to meet challenges of the COVID-19 pandemic. The validation standards normally enforced by the FDA and the [employer] (CAP) are more stringent than those required for this test. Therefore, the result should be interpreted with caution and close attention to other clinical and epidemiological data [id number] 21:34:00* Test Item Value Reference Range Interpretation Comme nts ACETAMINPH (test code = 94M) <0.2 mg/dL 1.2-2.5 L ALCOHOL BLOOD (ETOH)2022-11-29 21:34:00* Test Item Value Reference Range Interpretation Comme nts ETOH (test code = HALC) ETHANOL The result is to be used only for medical purposes ALCOHOL (test code = 56A) <10 mg/dL See_Comment [Automated [employer]] The system which generated this result transmitted reference range: <=10. The reference range was not used to interpret this result as normal/abnormal. [id number] 21:33:00* Test Item Value Reference Range Interpretation Comme nts SALICYLATE (test code = 94B) <3.0 mg/dL 15.0-30.0 L AMMONIA [id number] 21:32:00* Test Item Value Reference Range Interpretation Comme nts AMMONIA (test code = 54A) <10 umol/L 11-32 L BASIC METABOLIC [id number] 21:30:00* Test Item Value Reference Range Interpretation Comme nts GLUCOSE (test code = 06D) 97 mg/dL 75-100 SODIUM (test code = 01A) 133 mmol/L 136-145 L POTASSIUM (test code = 01B) 4.2 mmol/L 3.6-5.1 CHLORIDE (test code = 04A) 99 mmol/L 98-107 CO2 (test code = 02A) 28 mmol/L 20-31 ANION GAP (test code = ANG) 10.3 mmol/L BUN (test code = 05D) 13 mg/dL 9-23 CREATININE (test code = 03E) 0.9 mg/dL 0.6-1.0 GFR (test code = GFR) 64 mL/min/1.73m\S\2 See_Comment L [Automated message] The system which generated this result transmitted reference range: >=90. The reference range was not used to interpret this result as normal/abnormal. GFR (test code = GFRAA) 74 mL/min/1.73m\S\2 See_Comment L [Automated message] The system which generated this result transmitted reference range: >=90. The reference range was not used to interpret this result as normal/abnormal. EGFR (test code = EGFR) eGFR BY CKD-EPI CALCULATION IS NOT RECOMMENDED FOR PATIENTS UNDER 18 YEARS OF AGE. BUN/CREA (test code = BCR) 14 12-20 CALCIUM (test code = 09D) 9.5 mg/dL 8.3-10.6 URINALYSIS WITH [id number] 21:29:00* Test Item Value Reference Range Interpretation Comme nts COLOR (test code = COLU) YELLOW YELLOW CLARITY (test code = CLA) CLEAR CLEAR GLUCOSE UR (test code = UA GLUCOSE) NEGATIVE NEGATIVE BILI UR (test code = BILE) NEGATIVE NEGATIVE KETONES UR (test code = RAVEN) NEGATIVE NEGATIVE SP GRAVITY (test code = SPGR) 1.009 1.005-1.030 PH UR (test code = PH) 6.0 4.5-8.0 PROTEIN UR (test code = PU) NEGATIVE NEGATIVE UROBIL UR (test code = UROQ) 0.2 EU/dL 0.2-1.0 NITRITE UR (test code = NITRITE) NEGATIVE NEGATIVE BLOOD UR (test code = UA BLOOD) [...] code = USPERM) /HPF NONE DRUGS OF [id number] 21:24:00* Test Item Value Reference Range Interpretation Comme nts DRUG SCRN (test code = HDOA) URINE DRUG SCREEN This is an unconfirmed screening result and should not be used for non-medical purposes CANNABINOD (test code = 88C) POSITIVE NEGATIVE A AMPHETAMINE (test code = 84A) NEGATIVE NEGATIVE BENZODIAZP (test code = 86A) NEGATIVE NEGATIVE BARBITURAT (test code = 85A) NEGATIVE NEGATIVE OPIATES (test code = 92B) NEGATIVE NEGATIVE COCAINE (test code = 87A) NEGATIVE NEGATIVE PHENCYCLID (test code = 66A) NEGATIVE NEGATIVE METHADONE (test code = 64A) NEGATIVE NEGATIVE DOAH (test code = DOAH.) URINE DRUGSCREEN Cut-off values are as follows: Cannabinoids 50 ng/mL Cocaine 300 ng/mL Amphetamines 1000 ng/mL Phencyclidine 25 ng/mL Benzodiazepines 200 ng.mL Methadone 300 ng/mL Barbiturates 200 ng/mL Opiates 300 ng/mL CBC (INCLUDES AUTOMATED DIFFERENTIAL)2022-11-29 21:20:00* Test Item Value Reference Range Interpretation Comme nts WBC (test code = WBC) 11.5 10\S\3/uL [...]
[2023-03-29 23:03] LABS: Absolute Lymphocytes (CBC) 2.9 K/uL (0.7-4.9); Lymphocytes % 32.9 % (15.3-44.8); MCV 93.1 fL (80-100); MPV 7.2 fL (7.6-11.3); Platelets 374 thou/uL (152-406)
[2023-03-29 23:19] LABS: ALT/SGPT 26 U/L (13-56); AST/SGOT 16 U/L (15-37); Albumin 3.3 g/dL (3.4-5.0); Alkaline Phosphatase 100 U/L (45-117); BUN Blood Urea Nitrogen 15 mg/dL (7-18); Bicarbonate 26 mEq/L (21-32); Bilirubin Total 0.2 mg/dL (0.2-1.0); Glomerular Filtration Rate 87 ml/min (=/>90); Glucose Level 94 mg/dL (74-106); NT PRO-BNP 146 pg/mL (<125); Potassium 4.1 mEq/L (3.5-5.1); Sodium Level 131 mEq/L (136-145); Troponin High Sensitivity 4.8 pg/mL (<58.9)
[2023-03-29 23:27] LABS: Bilirubin Direct < 0.1 mg/dL (0-0.2); Bilirubin Indirect, Calculated ND mg/dL (0.2-0.8)
[2023-03-29 23:45] LABS: Protime INR 1.15
--- NOTE | 2023-03-30 00:53 | EDPHYS ---
Physician Documentation [facility] Name: Kylie Kaplan Age: 73 yrs Sex: Female : 1950 Arrival Date: 03/29/2023 Time: 21:12 Bed 17 Private MD: ED Physician J Luis Birmingham HPI: 03/29 21:18 This 73 yrs old Female presents to ER via Unassigned with complaints of Leg sp4 Swelling, FOOT SWELLING. 03/30 00:39 Presents with left leg generalized swelling and tissue fluid wheezing January 2023. sp4 Patient has had several studies including left lower extremity venous Doppler and left lower extremity arterial Doppler that revealed no abnormality in blood vessels. . Last week left lower extremity became more swollen and there is some redness as well. Patient denies any significant pain but states leg does feel a little sore. . Historical: - Allergies: 03/29 21:41 PENICILLINS; bp - PMHx: 21:41 Anxiety; DVT; Hyperlipidemia; Thyroid problem; bp - Immunization history:: Adult Immunizations up to date. - Social history:: Smoking status: Patient denies any tobacco usage or history of. - Family history:: not pertinent. ROS: 03/30 00:44 Constitutional: Negative for fever, chills, and weight loss, positive for left lower sp4 extremity swelling mild redness and tissue fluid wheezing. All other systems are negative, Exam: 03/29 22:42 ECG was reviewed by the Attending Physician. There is EKG at 2230, sinus rhythm with sp4 first-degree AV block at the rate of 80, right atrial enlargement, otherwise normal EKG 03/30 00:44 Constitutional: This is a well developed, well nourished patient who is awake, alert, sp4 and in no acute distress. Head/Face: Normocephalic, atraumatic. Eyes: Pupils equal round and reactive to light, extra-ocular motions intact. Lids and lashes normal. Conjunctiva and sclera are not injected. Cornea within normal limits. Periorbital areas with no swelling, redness, or edema. ENT: Nares patent. No nasal discharge, no septal abnormalities noted. Tympanic membranes are normal and external auditory canals are clear. Oropharynx with no redness, swelling, or masses, exudates, or evidence of obstruction, uvula midline. Mucous membranes moist. Neck: Trachea midline, no thyromegaly or masses palpated, and no cervical lymphadenopathy. Supple, full range of motion without nuchal rigidity, or vertebral point tenderness. Chest/axilla: Normal chest wall appearance and motion. Nontender with no deformity. No lesions are appreciated. Cardiovascular: Regular rate and rhythm with a normal S1 and S2. No gallops, murmurs, or rubs. Normal PMI, no JVD. No pulse deficits. Respiratory: Lungs have equal breath sounds bilaterally, clear to auscultation and percussion. No rales, rhonchi or wheezes noted. No increased work of breathing, no retractions or nasal flaring. Abdomen/GI: Soft, non-tender, with normal bowel sounds. No distension or tympany. No guarding or rebound. No evidence of tenderness throughout. Back: No spinal tenderness. No costovertebral tenderness. Skin: Warm, dry with normal turgor. Normal color with no rashes, no lesions, and no evidence of cellulitis. MS/ Extremity: Pulses equal, no cyanosis. Neurovascular intact. Full, normal range of motion. Left lower extremity moderate swelling with pitting and mild redness. Swelling is tracking to left mid thigh. Neuro: Awake and alert, GCS 15, oriented to person, place, time, and situation. Cranial nerves II-XII grossly intact. Motor strength 5/5 in all extremities. Sensory grossly intact. Psych: Awake, alert, with orientation to person, place and time. Behavior, mood, and affect are within normal limits Vital Signs: 03/29 21:41 BP 137 / 83; Pulse 79; Resp 16; Temp 98; Pulse Ox 98% ; Weight 65.77 kg; Height 5 ft. 7 bp in. ; 22:05 BP 142 / 79; Pulse 78; Resp 15; Pulse Ox 100% on R/A; me1 22:05 BP 140 / 76; Pulse 79; Resp 15; Pulse Ox 97% on R/A; me1 03/30 01:00 BP 141 / 75; Pulse 76; Resp 16 S; Pulse Ox 98% on R/A; jw7 03/29 21:41 Body Mass Index 22.71 (65.77 kg, 170.18 cm) bp [place] Com[place] Score: 00:44 Eye Response: spontaneous(4). Motor Response: obeys commands(6). Verbal Response: sp4 oriented(5). Total: 15. Procedures: 00:44 Performed . sp4 MDM: 03/29 21:19 Patient medically screened. sp4 03/30 00:29 ED course: CT Vascular study - TECHNIQUE: CT of the abdomen and pelvis and bilateral sp4 lower extremities was performed following intravenous administration of iodinated contrast. Oral contrast was not administered. Axial, coronal, and sagittal soft tissue window reconstructions were created and sent to PACS. This exam was performed according to our departmental dose-optimization program, which includes automated exposure control, adjustment of the mA and/or kV according to patient size and/or use of iterative reconstruction technique. FINDINGS: Vascular: No aortic dissection. Infrarenal abdominal aortic aneurysm measures up to 3.7 cm in diameter. Mild mixed atherosclerosis. The celiac axis, SMA, and bilateral renal arteries are patent. No KAI is visualized. Mild calcific atherosclerosis of the bilateral common iliac arteries. No significant stenoses in the bilateral iliac and femoral arterial system. Mild noncalcified plaque in the right popliteal artery with no significant stenosis. The posterior tibial artery is diminutive bilaterally, and only visualized to the level of the mid lower leg bilaterally. The peroneal, anterior tibial, and dorsalis pedis arteries are widely patent bilaterally. No hematoma or active extravasation of contrast. Thoracic: No significant abnormality. Hepatobiliary: No concerning hepatic lesion identified. The portal veins are patent. The gallbladder is unremarkable. No biliary ductal dilatation. Pancreas: Unremarkable. Spleen: Unremarkable. Gastrointestinal: No evidence of bowel obstruction or perienteric inflammation. The appendix is not definitely visualized. Small amount of fecal material throughout the colon and rectum. Mild sigmoid diverticulosis.. Adrenals: No abnormality identified in either adrenal gland. Renal: No concerning parenchymal abnormality in either kidney. No hydronephrosis or urolithiasis. Bladder/Reproductive: Unremarkable appearance of the urinary bladder by CT technique. Lymphatics: Minimally prominent left inguinal lymph nodes. Musculoskeletal: Moderate subcutaneous edema about the left lower leg with no abscess identified. No subcutaneous emphysema. No significant deep fascial fluid. No obvious osseous erosions. No knee joint effusions. No concerning osseous lesion identified. Demineralized appearance of the bones. Fluid / peritoneum: No significant free fluid. No free intraperitoneal air identified. IMPRESSION 1. No arterial occlusions or significant stenoses bilaterally. 2. Diminutive size of the posterior tibial arteries bilaterally, favored chronic/congenital. 3. Left lower leg subcutaneous edema with no abscess identified. 4. Infrarenal abdominal aortic aneurysm measuring up to 3.7 cm. Recommend follow-up every 2 years. 00:44 ED course: US - CLINICAL HISTORY: 73 years Female; L leg swelling TECHNIQUE: Spectral sp4 analysis and color/grayscale sonographic images of the left leg were obtained utilizing a high-frequency linear array transducer supplemented with color Doppler, compression and augmentation techniques. COMPARISON: None. FINDINGS: Common femoral: normal Greater saphenous: normal Superficial femoral: normal Popliteal: normal Calf Veins: normal IMPRESSION: No sonographic evidence for left lower extremity deep venous thrombosis. ED course: Chest - TECHNIQUE: 1 view (Single frontal view of the chest) COMPARISON: None. FINDINGS: LINES AND TUBES: None. CARDIOVASCULAR STRUCTURES: Normal heart size. No pulmonary venous congestion. LUNGS: No confluent areas of acute consolidation. There is what likely represents mild chronic interstitial changes. PLEURA: No layering pleural effusions. No pneumothorax. BONES: No acute osseous abnormality of the thorax. IMPRESSION: 1. No acute cardiopulmonary disease. 2. Probable mild chronic interstitial changes. 00:49 ED course: CT today revealed - 1. No arterial occlusions or significant stenoses sp4 bilaterally. 2. Diminutive size of the posterior tibial arteries bilaterally, favored chronic/congenital. 3. Left lower leg subcutaneous edema with no abscess identified. 4. Infrarenal abdominal aortic aneurysm measuring up to 3.7 cm. Recommend follow-up every 2 years . Re Ultrasound revealed no signs of DVT in the left lower extremity. Patient has mild redness may be early cellulitis will provide Bactrim p.o. twice a day for 10 days. Will advise patient to keep appointment with Dr. Edmondson with cardiology on 04/05/2023. Patient may benefit from referral to vascular surgeon. At this time No emergent or dangerous problems found on the ultrasound or CT. patient stable for discharge home with p.o. Bactrim for 2 days. . 03/29 22:59 Order name: Basic Metabolic Panel; Complete Time: 00:29 EDMS 03/29 22:59 Order name: Liver (Hepatic) Function; Complete Time: 00:29 EDMS 03/29 22:59 Order name: Troponin High Sensitivity; Complete Time: 00:29 EDMS 03/29 22:59 Order name: NT PRO-BNP; Complete Time: 00:29 EDMS 03/29 22:59 Order name: Magnesium; Complete Time: 00:29 EDMS 03/29 22:59 Order name: CBC with Automated Diff; Complete Time: 00:29 EDMS 03/29 22:59 Order name: Protime (+INR); Complete Time: 00:29 EDMS 03/29 23:49 Order name: CREATININE WHOLE BLOOD; Complete Time: 00:29 EDMS 03/29 21:37 Order name: XRAY Chest (1 view) sp4 03/29 22:36 Order name: Extremity Venous Uni Ltd US sp4 03/29 22:57 Order name: Abdomen Angio EDMS 03/29 22:57 Order name: Pelvis Angio EDMS 03/29 22:57 Order name: Lower Ext Angio EDMS 03/29 21:37 Order name: EKG; Complete Time: 22:58 sp4 03/29 21:37 Order name: Cardiac monitoring; Complete Time: 22:45 sp4 03/29 21:37 Order name: EKG - Nurse/Tech; Complete Time: 22:45 sp4 03/29 21:37 Order name: IV Saline Lock; Complete Time: 22:45 sp4 03/29 21:37 Order name: Labs collected and sent; Complete Time: 22:45 sp4 03/29 21:37 Order name: O2 Per Protocol; Complete Time: 22:45 sp4 03/29 21:37 Order name: O2 Sat Monitoring; Complete Time: 22:45 sp4 EC/20 22:42 Rate is 80 beats/min. Rhythm is regular, Normal Sinus Rhythm. QRS [place] is Normal. HI sp4 interval is prolonged. QRS interval is normal. QT interval is normal. No Q waves. T waves are Normal. No ST changes noted. Clinical impression: Normal ECG. Interpreted by me. Reviewed by me. Administered Medications: 22:46 Drug: NS 0.9% IV 1000 ml IV at 125 ml/hr continuous Route: IV; Rate: 125 ml/hr; Site: [facility] right forearm; 03/30 01:47 Follow up: Response: No adverse reaction; IV Status: Order to discontinue infusion; IV jw7 Intake: 375ml 01:30 Drug: Trimethoprim-Sulfamethoxazole PO (160 mg-800 mg (DS) 1 tablet PO once Route: PO; jw7 01:47 Follow up: Response: No adverse reaction 7 01:30 Drug: Ondansetron PO 4 mg PO once Route: PO; jw7 01:47 Follow up: Response: No adverse reaction jw7 Disposition Summary: 03/30/23 00:53 Discharge Ordered Problem: new sp4 Symptoms: have improved sp4 Condition: Stable sp4 Diagnosis - Localized edema sp4 - Cellulitis of left lower limb sp4 - Lymphedema, not elsewhere classified sp4 - Lower extremity edema with cellulitis, without venous or arterial occlusion sp4 Followup: sp4 - With: Alan Edmondson MD - When: 04/05/2023 as scheduled - Reason: Discharge Instructions: - Discharge Summary Sheet sp4 - Edema sp4 Forms: - Patient Portal Instructions sp4 Prescriptions: - Bactrim DS 800-160 mg Oral Tablet - take 1 tablet ORAL route every 12 hours for 10 days; 20 tablet; Refills: 0, sp4 Product Selection Permitted Signatures: Dispatcher [employer] Sunil Vee, JAZMIN RN Babita Carson RN RN jw7 J Luis Birmingham MD MD sp4 Teresa Vieira RN RN me1 Corrections: (The following items were deleted from the chart) 03/29 23:03 22:58 Angio Aorta For Dissection+CT.RAD.BRZ ordered. EDMS EDMS 23:07 22:58 BASIC METABOLIC PANEL+C.LAB.BRZ ordered. EDMS EDMS 23:07 22:58 CBC+H.LAB.BRZ ordered. EDMS EDMS 23:07 22:58 HEPATIC FUNCTION+C.LAB.BRZ ordered. EDMS EDMS 23:07 22:58 MAGNESIUM+C.LAB.BRZ ordered. EDMS EDMS 23:07 22:58 PROBNP+C.LAB.BRZ ordered. EDMS EDMS 23:07 22:58 PROTIME (+INR)+COAG.LAB.BRZ ordered. EDMS EDMS 23:07 22:58 Troponin High Sensitivity+C.LAB.BRZ ordered. EDMS EDMS
--- NOTE | 2023-03-30 00:53 | ER ---
Nurse's Notes [facility] Name: Kylie Kaplan Age: 73 yrs Sex: Female : 1950 Arrival Date: 03/29/2023 Time: 21:12 Bed 17 Private MD: Diagnosis: Localized edema;Cellulitis of left lower limb;Lymphedema, not elsewhere classified;Lower extremity edema with cellulitis, without venous or arterial occlusion Presentation: 03/29 21:41 Chief complaint: Patient's son or daughter states: 6 DAYS LLE ANASARCA. Coronavirus bp screen: At this time, the client does not indicate any symptoms associated with coronavirus-19. Ebola Screen: No symptoms or risks identified at this time. Initial Sepsis Screen: Does the patient meet any 2 criteria? No. Patient's initial sepsis screen is negative. Does the patient have a suspected source of infection? No. Patient's initial sepsis screen is negative. Risk Assessment: Do you want to hurt yourself or someone else? Patient reports no desire to harm self or others. Onset of symptoms is unknown. 21:41 Method Of Arrival: Ambulatory bp 21:41 Acuity: TONY 3 bp Triage Assessment: 21:41 General: Appears in no apparent distress. Behavior is calm, cooperative, appropriate bp for age. Pain: Complains of pain in left leg. Historical: - Allergies: 21:41 PENICILLINS; bp - PMHx: 21:41 Anxiety; DVT; Hyperlipidemia; Thyroid problem; bp - Immunization history:: Adult Immunizations up to date. - Social history:: Smoking status: Patient denies any tobacco usage or history of. - Family history:: not pertinent. Screenin:58 [facility] ED Fall Risk Assessment (Adult) History of falling in the last 3 months, me1 including since admission No falls in past 3 months (0 pts) Confusion or Disorientation Yes (5 pts) Intoxicated or Sedated No (0 pts) Impaired Gait Yes (1 pt) Mobility Assist Device Used Yes (1 pt) Altered Elimination No (0 pt) Score/Fall Risk Level 0 - 2 = Low Risk Maintained a safe environment, Provided non-skid footwear, Hourly rounding (assess needs \T\ fall precautionary measures) done. Abuse screen: Denies threats or abuse. Nutritional screening: No deficits noted. Tuberculosis screening: No symptoms or risk factors identified. Assessment: 22:58 General: Appears uncomfortable, well groomed, well developed, well nourished, Behavior me1 is cooperative, appropriate for age, anxious, Reports LLE edema from hip down that started 6 days ago. Pain: Complains of pain in left leg Pain does not radiate. Pain currently is 4 out of 10 on a pain scale. Quality of pain is described as tender, Pain began 6 days ago Is continuous. Neuro: Level of Consciousness is awake, alert, obeys commands, Oriented to person, situation. Cardiovascular: Capillary refill < 3 seconds Patient's skin is warm and dry. +3 edema to LLE. Faint palpable pulses to LLE.. Respiratory: Airway is patent Respiratory effort is even, unlabored, Respiratory pattern is regular, symmetrical. Derm: edema to LLE. Musculoskeletal: Swelling present in left leg. 03/30 00:00 Reassessment: Patient appears in no apparent distress at this time. Patient and/or [facility] family updated on plan of care and expected duration. Pain level reassessed. Patient is alert, oriented x 3, equal unlabored respirations, skin warm/dry/pink. Patient states symptoms have improved. 01:20 Reassessment: Patient appears in no apparent distress at this time. No changes from [facility] previously documented assessment. Patient and/or family updated on plan of care and expected duration. Pain level reassessed. Patient is alert, oriented x 3, equal unlabored respirations, skin warm/dry/pink. Vital Signs: 03/29 21:41 BP 137 / 83; Pulse 79; Resp 16; Temp 98; Pulse Ox 98% ; Weight 65.77 kg; Height 5 ft. 7 bp in. ; 22:05 BP 142 / 79; Pulse 78; Resp 15; Pulse Ox 100% on R/A; la1 22:05 BP 140 / 76; Pulse 79; Resp 15; Pulse Ox 97% on R/A; [facility] 03/30 01:00 BP 141 / 75; Pulse 76; Resp 16 S; Pulse Ox 98% on R/A; 7 03/29 21:41 Body Mass Index 22.71 (65.77 kg, 170.18 cm) bp [place] Score: 00:44 Eye Response: spontaneous(4). Motor Response: obeys commands(6). Verbal Response: sp4 oriented(5). Total: 15. ED Course: 03/29 21:13 Patient arrived in ED. jj6 21:18 J Luis Birmingham MD is Attending Physician. sp4 21:41 Triage completed. bp 21:41 Arm band placed on. bp 22:09 Teresa Vieira, RN is Primary Nurse. me1 22:45 Inserted saline lock: 22 gauge in right forearm, using aseptic technique. me1 22:58 Patient has correct armband on for positive identification. Bed in low position. Call me1 light in reach. Side rails up X 1. Provided Education on: POC. Verbalized understanding. . 22:58 No provider procedures requiring assistance completed. me1 23:02 Protime (+INR) Sent. me1 23:02 NT PRO-BNP Sent. me1 23:02 Magnesium Sent. me1 23:02 CBC with Automated Diff Sent. me1 23:02 Liver (Hepatic) Function Sent. me1 23:02 Troponin High Sensitivity Sent. me1 23:02 Basic Metabolic Panel Sent. me1 23:12 Abdomen Angio In Process Unspecified. EDMS 23:12 Pelvis Angio In Process Unspecified. EDMS 23:12 Lower Ext Angio In Process Unspecified. EDMS 23:29 XRAY Chest (1 view) In Process Unspecified. EDMS 23:52 Extremity Venous Uni Ltd US In Process Unspecified. EDMS 03/30 00:52 Alan Edmondson MD is Referral Physician. sp4 01:46 IV discontinued, intact, bleeding controlled, No redness/swelling at site. Pressure jw7 dressing applied. Administered Medications: 03/29 22:46 Drug: NS 0.9% IV 1000 ml IV at 125 ml/hr continuous Route: IV; Rate: 125 ml/hr; Site: me1 right forearm; 03/30 01:47 Follow up: Response: No adverse reaction; IV Status: Order to discontinue infusion; IV jw7 Intake: 375ml 01:30 Drug: Trimethoprim-Sulfamethoxazole PO (160 mg-800 mg (DS) 1 tablet PO once Route: PO; jw7 01:47 Follow up: Response: No adverse reaction jw7 01:30 Drug: Ondansetron PO 4 mg PO once Route: PO; jw7 01:47 Follow up: Response: No adverse reaction jw7 Medication: 03/29 22:58 VIS not applicable for this client. me1 Intake: 03/30 01:47 IV: 375ml; Total: 375ml. jw7 Outcome: 00:53 Discharge ordered by MD. matute 01:45 Discharged to home via wheelchair, with family, jw7 01:45 Condition: stable 01:45 Discharge instructions given to patient, family, Instructed on discharge instructions, follow up and referral plans. medication usage, Demonstrated understanding of instructions, follow-up care, medications, Prescriptions given X 1, 01:48 Patient left the ED. jw7 Signatures: Dispatcher [employer] EDMS Sunil Elkins, RN RN Joceline Hendrix jj6 Babita Carson, RN RN jw7 J Luis Birmingham MD MD sp4 Teresa Vieira RN RN me1 Corrections: (The following items were deleted from the chart) 03/29 23:07 23:02 BASIC METABOLIC PANEL+C.LAB.BRZ drawn and sent. [facility] EDMS 23: 23:02 CBC+H.LAB.BRZ drawn and sent. [facility] [place] EDMS 23: 23:02 HEPATIC FUNCTION+C.LAB.BRZ drawn and sent. [facility] [place] EDMS 23:07 23:02 MAGNESIUM+C.LAB.BRZ drawn and sent. [facility] EDMS 23:07 23:02 PROBNP+C.LAB.BRZ drawn and sent. [facility] [place] EDMS 23:07 23:02 PROTIME (+INR)+COAG.LAB.BRZ drawn and sent. [facility] [place] EDMS 23:07 23:02 Troponin High Sensitivity+C.LAB.BRZ drawn and sent. [facility] [place] EDMS
[2023-03-30 03:07] VITALS: TEMP 98; O2SAT 98
[2023-03-30 03:12] VITALS: BP 141/75
--- NOTE | 2023-03-30 12:41 | RAD REPORT ---
EXAM DESCRIPTION: CT - Pelvis Angio - 03/30/2023 6:36 am CLINICAL HISTORY: LEG SWELLING. COMPARISON: None. TECHNIQUE: CT of the abdomen and pelvis and bilateral lower extremities was performed following intr avenous administration of iodinated contrast. Oral contrast was not administered. Axial, coronal, and sagittal soft tissue window reconstructions were created and sent to PACS. This exam was performed according to our departmental dose-optimization program, which includes autom ated exposure control, adjustment of the mA and/or kV according to patient size and/or use of iterati ve reconstruction technique. FINDINGS: Vascular: No aortic dissection. Infrarenal abdominal aortic aneurysm measures up to 3.7 cm in diameter. Mild mixed atherosclerosis. The celiac axis, SMA, and bilateral renal arteries are estrada nt. No KAI is visualized. Mild calcific atherosclerosis of the bilateral common iliac arteries. No si gnificant stenoses in the bilateral iliac and femoral arterial system. Mild noncalcified plaque in th e right popliteal artery with no significant stenosis. The posterior tibial artery is diminutive bila terally, and only visualized to the level of the mid lower leg bilaterally. The peroneal, anterior ti bial, and dorsalis pedis arteries are widely patent bilaterally. No hematoma or active extravasation of contrast. Thoracic: No significant abnormality. Hepatobiliary: No concerning hepatic lesion identified. The portal veins are patent. The gallbladder is unremarkable. No biliary ductal dilatation. Pancreas: Unremarkable. Spleen: Unremarkable. Gastrointestinal: No evidence of bowel obstruction or perienteric inflammation. The appendix is not d efinitely visualized. Small amount of fecal material throughout the colon and rectum. Mild sigmoid di verticulosis.. Adrenals: No abnormality identified in either adrenal gland. Renal: No concerning parenchymal abnormality in either kidney. No hydronephrosis or urolithiasis. Bladder/Reproductive: Unremarkable appearance of the urinary bladder by CT technique. Lymphatics: Minimally prominent left inguinal lymph nodes. Musculoskeletal: Moderate subcutaneous edema about the left lower leg with no abscess identified. No subcutaneous emphysema. No significant deep fascial fluid. No obvious osseous erosions. No knee joint effusions. No concerning osseous lesion identified. Demineralized appearance of the bones. Fluid / peritoneum: No significant free fluid. No free intraperitoneal air identified. IMPRESSION 1. No arterial occlusions or significant stenoses bilaterally. 2. Diminutive size of the posterior tibial arteries bilaterally, favored chronic/congenital. 3. Left lower leg subcutaneous edema with no abscess identified. 4. Infrarenal abdominal aortic aneurysm measuring up to 3.7 cm. Recommend follow-up every 2 years ( Reference: J Am Hernandez Radiol 2013;10:789-794). Electronically signed by: Yancy Sun MD 03/29/2023 11:52 PM T[employer] WAGON DRIVER Due to temporary technical issues with the PACS/Fluency reporting system, reports are being signed by the in house radiologist without review as a courtesy to ensure prompt reporting. The interpreting r adiologist is fully responsible for the content of the report.
--- NOTE | 2023-03-30 12:44 | RAD REPORT ---
EXAM DESCRIPTION: US - Extremity Venous Uni Ltd - 03/29/2023 11:50 pm CLINICAL HISTORY: 73 years Female; L leg swelling TECHNIQUE: Spectral analysis and color/grayscale sonographic images of the left leg were obtained ut ilizing a high-frequency linear array transducer supplemented with color Doppler, compression and aug mentation techniques. COMPARISON: None. FINDINGS: Common femoral: normal Greater saphenous: normal Superficial femoral: normal Popliteal: normal Calf Veins: normal IMPRESSION: No sonographic evidence for left lower extremity deep venous thrombosis. Electronically signed by: Donita Archer MD 03/30/2023 12:29 AM QUARTER DOPER Due to temporary technical issues with the PACS/Fluency reporting system, reports are being signed by the in house radiologist without review as a courtesy to ensure prompt reporting. The interpreting r adiologist is fully responsible for the content of the report.
--- NOTE | 2023-03-30 12:46 | RAD REPORT ---
EXAM DESCRIPTION: RAD - Chest Single View - 03/29/2023 11:27 pm CLINICAL HISTORY: 73 years Female, CHEST PAIN TECHNIQUE: 1 view (Single frontal view of the chest) COMPARISON: None. FINDINGS: LINES AND TUBES: None. CARDIOVASCULAR STRUCTURES: Normal heart size. No pulmonary venous congestion. LUNGS: No confluent areas of acute consolidation. There is what likely represents mild chronic inte rstitial changes. PLEURA: No layering pleural effusions. No pneumothorax. BONES: No acute osseous abnormality of the thorax. IMPRESSION: 1. No acute cardiopulmonary disease. 2. Probable mild chronic interstitial changes. Electronically signed by: Sharan Phillips MD 03/30/2023 12:06 AM OPTICAL EFFECTS LAYOUT PERSON Due to temporary technical issues with the PACS/Fluency reporting system, reports are being signed by the in house radiologist without review as a courtesy to ensure prompt reporting. The interpreting r adiologist is fully responsible for the content of the report.
--- NOTE | 2023-03-31 15:11 | EKG ---
Test Date: 2023-03-29 Test Time: 22:30:32 Racecar Driver: ALVARO MEASUREMENT RESULTS: Intervals: Rate: 80 NH: 310 QRSD: 80 QT: 402 QTc: 463 [place]: P: 75 NH: 310 QRS: 78 T: 83 INTERPRETIVE STATEMENTS: Sinus rhythm with 1st degree AV block Right atrial enlargement Borderline ECG Compared to ECG 02/01/2019 21:58:48 Atrial abnormality now present Electronically Signed On 03-31-23 15:08:52 LADIES' LOCK[employer] ROOM ATTENDANT by Alan Edmondson
== END ==
LOC: ER 21:12
DX: L03.116 Cellulitis of left lower limb (principal); I89.0 Lymphedema, not elsewhere classified; Z86.718 Personal history of other venous thrombosis and embolism; Z88.0 Allergy status to penicillin
CPT/HCPCS: 85025; 80048; 36415; 83735; 85610; 82565; 80076; 84484; 83880; 73706; 72191; 74175; 71045; 93971; Q9967; J7030; 93005; 96360; 96361; 99284

== ENCOUNTER 2024-07-04 16:19 | Emergency (ER) | payer OTHER ==
--- OUTSIDE RECORDS SUMMARY | 2024-07-04 16:31 | XMS REPORT | Continuity of Care Document ---
Author Name Unknown Address [address] [facility] [address] [place] [address] [facility] [place] Address [address] [facility] [place] [address] Care Team Providers Care Parts Data Writer Name Role Phone Juana Avina Primary Care Physician [phone] Ngoc Lipscomb Attending Clinician Unavailable ILIANA WAY Attending Clinician UnavailBrenda Lee PA-C Attending Clinician [phone] BRENDA NEWMAN Attending Clinician Unavailable Unknown, Attending Attending Clinician UnavailDEEPAK Castillo Attending Clinician Unavailable Deepak Clancy MD Attending Clinician [phone] DR JOAQUIN ELDRIDGE Attending Clinician UnavailDR JOAQUIN Vigil Attending Clinician Unavailbharath SANDS Attending Clinician Unavailable Brenda Newman PA-C Attending Clinician [phone] Unknown, Attending Attending Clinician Unavailab edin Doctor Unassigned, [place] Attending Clinician HARPAL Soto Attending Clinician Unavailable DR JOAQUIN ELDRIDGE Admitting Clinician DR ROXANNE Rhodes Admitting Clinician Krysten SANDS Admitting Clinician Unavailable Payers Payer Name Policy Type Policy Number Effective Date Expirati on Date Source MEDICARE PART A AND B Medicare [id number] 2023 00:00:00 GENERIC MEDICARE SUPPLEMENTAL Other [id number] 2023 00:00:00 0500 [id number] 2022 00:00:00 0050 [id number] 1959 00:00:00 [place]IC[place]: [facility] [id number] 2016 00:00:00 [facility] MEDICAL CARE PLAN [id number] Problems Condition Name Condition Details Condition Category Status Onset Date Resolution Date Last Treatment Date Treating Clinician Comments Source Bipolar disorder Bipolar Disorder Problem Active 5-16 00:00: 00 [facility] [...] Date Inactive Date Treating Clinician Comments Source CODEINE DRUG INGREDI Active Unknown 9-11 00:00: 00 [facility] PENICILL IN G DRUG INGREDI Active Unknown 9-11 00:00: 00 MHEOUT Codeine Allergy to substanc e Active Unknown 9-11 00:00: 00 Trinidad Sargent Penicill in G Allergy to substanc e Active Unknown 9-11 00:00: 00 Trinidad Sargent Penicill ins DA Active Unknown 11-29 00:00: 00 [facility] Penicill ins Propensi ty to adverse reaction s Active Hives 11-03 00:00: 00 [facility] PENICILL INS Drug Class Active Hives 11-03 00:00: 00 [facility] Penicill ins Propensi ty to adverse reaction s Active Hives 11-03 00:00: 00 [facility] PENICILL INS Allergy to substanc e Active [facility] Social History Social Habit Start Date Stop Date Quantity Comments Source Gender identity 2023-07-02 05:50:32 Identifies as female gender (finding) Yris Sargent Sexual orientation [facility] History of tobacco use Passive smoker [facility] Tobacco use and exposure 2023-12-20 00:00:00 2023-12-20 00:00:00 User of smokeless tobacco [facility] History of Social function 2023-12-20 00:00:00 2023-12-20 00:00:00 [facility] Cigarettes smoked current (pack per day) - Reported 2022-10-21 00:00:00 2022-10-21 00:00:00 [facility] Cigarette pack-years 2022-10-21 00:00:00 2022-10-21 00:00:00 [facility] Alcohol intake 2022-10-21 00:00:00 2022-10-21 00:00:00 Ex-drinker (finding) [facility] Tobacco Comment 2022-10-21 00:00:00 2022-10-21 00:00:00 vaping [facility] Alcoholic beverage intake 2022-10-21 00:00:00 2022-10-21 00:00:00 Ex-drinker (finding) [facility] Sex assigned at 1950 00:00:00 1950 00:00:00 [facility] Smoking Status Start Date Stop Date Source Occasional tobacco smoker 2023-12-20 00:00:00 [facility] Ex-smoker 2022-10-21 00:00:00 2022-10-21 00:00:00 [facility] Medications Ordered Medication Name Filled Medication Name Start Date Stop Date Current Medication? Ordering Clinician Indication Dosage Frequency Signature (SIG) Comments Components Source cetirizine 10 mg tablet 2023-04 00:00: 00 Yes [id number] 10mg Take 1 tablet by mouth in the morning. [facility] fluticasone propionate 50 mcg/actuati on nasal spray 2023-04 00:00: 00 Yes [id number] 2{spray } Use 2 Sprays in each nostril in the morning. [facility] bromphenira mine-pseudo ephedrine-D M (BROMFED DM) 2-30-10 mg/5 mL syrup 2023-04 00:00: 00 Yes [id number] 5mL Take 5 mL by mouth 3 (three) times daily as needed for Cold symptoms or Cough. [facility] furosemide (Lasix) 20 MG tablet furosemide (Lasix) 20 MG tablet 12-19 14:50: 22 12-19 00:00 :00 No 20mg QD Take 20 mg by mouth 1 time each day. Trinidad Sargent gabapentin (Neurontin) 100 MG capsule gabapentin (Neurontin) 100 MG capsule 12-19 14:50: 10 12-19 00:00 :00 No 100mg QD Take 100 mg by mouth 1 time each day. Trinidad Sargent busPIRone (Buspar) 10 MG tablet busPIRone (Buspar) 10 MG tablet 12-19 14:49: 58 12-19 00:00 :00 No 1{tbl} Q8H 1 tablet in the morning and 1 tablet at noon and 1 tablet before bedtime. Trinidad Sargent benztropine (Cogentin) 0.5 MG tablet benztropine (Cogentin) 0.5 MG tablet 12-19 14:49: 49 12-19 00:00 :00 No .5mg Take 0.5 mg by mouth at bedtime. Trinidad Sargent QUEtiapine (SEROquel) 200 MG tablet QUEtiapine (SEROquel) 200 MG tablet 12-19 14:49: 29 Yes 200mg Take 200 mg by mouth. Take 1 tab in am and 2 tabs atnight Trinidad Sargent OLANZapine (ZyPREXA) 5 MG tablet OLANZapine (ZyPREXA) 5 MG tablet 12-19 14:48: 00 Yes 5mg Take 5 mg by mouth in the morning and 5 mg at noon. Trinidad Sargent sertraline (Zoloft) 50 MG tablet sertraline (Zoloft) 50 MG tablet 12-19 14:47: 03 Yes [id number] 1{tbl} Take 1 tablet by mouth 1 time each day at the same time. Take 11/2 tab a day Trinidad Sargent sertraline (Zoloft) 25 MG tablet sertraline (Zoloft) 25 MG tablet 12-19 14:46: 39 12-19 00:00 :00 No 1{tbl} Take 1 tablet by mouth 1 time each day at the same time. Trinidad Oh [facility] levothyroxi ne (Synthroid, Levoxyl) 112 MCG tablet levothyroxi ne (Synthroid, Levoxyl) 112 MCG tablet 12-19 08:44: 01 Yes 112ug QD Take 112 mcg by mouth 1 time each day. Trinidad Oh [facility] LORazepam (Ativan) 0.5 MG tablet LORazepam (Ativan) 0.5 MG tablet 12-19 08:44: 01 Yes .5mg [id number] 3D Take 0.5 mg by mouth 3 times a day as needed. Trinidad Oh [facility] Eliquis 5 MG tablet Eliquis 5 MG tablet 12-19 08:44: 01 Yes TAKE 1 TABLET BY MOUTH TWICE A DAY Oral for 30 Trinidad Oh [facility] memantine (Namenda) 10 MG tablet memantine (Namenda) 10 MG tablet 12-19 00:00: 00 Yes [id number] 10mg Q.5D Take 1 tablet by mouth in the morning and 1 tablet in the evening. Trinidad Oh [facility] donepezil (Aricept) 10 MG tablet donepezil (Aricept) 10 MG tablet 12-19 00:00: 00 06-17 23:59 :00 No [id number] 10mg QD Take 1 tablet by mouth 1 time each day. Trinidad Oh [facility] donepezil (Aricept) 10 MG tablet donepezil (Aricept) 10 MG tablet 11-28 00:00: 00 12-19 00:00 :00 No [id number] TAKE 1 TABLET BY MOUTH EVERY DAY AT BEDTIME FOR 90 DAYS 90 DAYS Trinidad Oh [facility] memantine (Namenda) 10 MG tablet memantine (Namenda) 10 MG tablet 11-28 00:00: 00 12-19 00:00 :00 No [id number] 10mg Q.5D TAKE 1 TABLET BY MOUTH TWICE A DAY FOR 90 DAYS Trinidad Oh [facility] melatonin 10 mg Tab 10-31 13:45: 49 Yes Take by mouth. [facility] QUEtiapine 200 mg tablet 10-31 13:45: 49 Yes 200mg Take 200 mg by mouth 2 (two) times daily. [facility] levothyroxi ne 150 mcg tablet 16 00:00: 00 Yes TAKE 1 TABLET BY MOUTH EVERY DAY ON EMPTY STOMACH IN THE MORNING [facility] LORazepam 0.5 mg tablet 08-22 00:00: 00 Yes TAKE 1 TABLET BY MOUTH TWICE A DAY NEEDED FOR SLEEP [facility] Acetaminoph en-Codeine 120-12 mg/5 mL oral solution 11-03 00:00: 00 Yes 10mL Take 10 mL by mouth every 6 (six) hours as needed for Pain (scale 4-6). [facility] chlorhexidi ne 0.12 % mouthwash 11-03 00:00: 00 Yes 15mL Swish and spit out 15 mL 2 (two) times daily. [facility] chlorhexidi ne 0.12 % mouthwash 11-03 00:00: 00 Yes 15mL Swish and spit out 15 mL 2 (two) times daily. [facility] atorvastati n 40 mg tablet TAKE 1 TABLET BY MOUTH IN EVENING ONCE A DAY FOR 90 DAYS atorvastati n 40 mg tablet TAKE 1 TABLET BY MOUTH IN EVENING ONCE A DAY FOR 90 DAYS No atorvastat in 40 mg tablet TAKE 1 TABLET BY MOUTH IN EVENING ONCE A DAY FOR 90 DAYS [facility] eszopiclone 3 mg [...] FOR SLEEP ONCE A DAY 30 DAYS [facility] fluocinonid e 0.05 % topical solution APPLY TO AREA ON SCALP ONCE DAILY NEEDED FOR ITCH fluocinonid e 0.05 % topical solution APPLY TO AREA ON SCALP ONCE DAILY NEEDED FOR ITCH No fluocinoni de 0.05 % topical solution APPLY TO AREA ON SCALP ONCE DAILY NEEDED FOR ITCH [facility] gabapentin 300 mg capsule TAKE 1 CAPSULE(S) 4 TIMES A DAY BY ORAL ROUTE WITH MEALS gabapentin 300 mg capsule TAKE 1 CAPSULE(S) 4 TIMES A DAY BY ORAL ROUTE WITH MEALS No gabapentin 300 mg capsule TAKE 1 CAPSULE(S) 4 TIMES A DAY BY ORAL ROUTE WITH MEALS [facility] ketoconazol e 2 % topical cream APPLY A SMALL AMOUNT TO AFFECTED SKIN ON BACK TWICE A DAY DIRECTED ketoconazol e 2 % topical cream APPLY A SMALL AMOUNT TO AFFECTED SKIN ON BACK TWICE A DAY DIRECTED No ketoconazo le 2 % topical cream APPLY A SMALL AMOUNT TO AFFECTED SKIN ON BACK TWICE A DAY DIRECTED [facility] nortriptyli ne 75 mg capsule TAKE 2 CAPSULES BY MOUTH AT BEDTIME nortriptyli ne 75 mg capsule TAKE 2 CAPSULES BY MOUTH AT BEDTIME No nortriptyl ine 75 mg capsule TAKE 2 CAPSULES BY MOUTH AT BEDTIME [facility] Xarelto 20 mg tablet TAKE 1 TABLET BY MOUTH EVERY DAY WITH FOOD Xarelto 20 mg tablet TAKE 1 TABLET BY MOUTH EVERY DAY WITH FOOD No Xarelto 20 mg tablet TAKE 1 TABLET BY MOUTH EVERY DAY WITH FOOD [facility] atorvastati n 40 mg tablet TAKE 1 TABLET BY MOUTH EVERY EVENING atorvastati n 40 mg tablet TAKE 1 TABLET BY MOUTH EVERY EVENING No atorvastat in 40 mg tablet TAKE 1 TABLET BY MOUTH EVERY EVENING [facility] eszopiclone 3 mg tablet TAKE 1 [...] SLEEP ONCE A DAY 30 DAYS [facility] fluocinonid e 0.05 % topical solution APPLY TO AREA ON SCALP ONCE DAILY NEEDED FOR ITCH fluocinonid e 0.05 % topical solution APPLY TO AREA ON SCALP ONCE DAILY NEEDED FOR ITCH No fluocinoni de 0.05 % topical solution APPLY TO AREA ON SCALP ONCE DAILY NEEDED FOR ITCH [facility] gabapentin 300 mg capsule TAKE 1 CAPSULE BY MOUTH 4 TIMES A DAY WITH MEALS gabapentin 300 mg capsule TAKE 1 CAPSULE BY MOUTH 4 TIMES A DAY WITH MEALS No gabapentin 300 mg capsule TAKE 1 CAPSULE BY MOUTH 4 TIMES A DAY WITH MEALS [facility] ketoconazol e 2 % shampoo PLEASE SEE ATTACHED FOR DETAILED DIRECTIONS ketoconazol e 2 % shampoo PLEASE SEE ATTACHED FOR DETAILED DIRECTIONS No ketoconazo le 2 % shampoo PLEASE SEE ATTACHED FOR DETAILED DIRECTIONS [facility] ketoconazol e 2 % topical cream APPLY A SMALL AMOUNT TO AFFECTED SKIN ON BACK TWICE A DAY DIRECTED ketoconazol e 2 % topical cream APPLY A SMALL AMOUNT TO AFFECTED SKIN ON BACK TWICE A DAY DIRECTED No ketoconazo le 2 % topical cream APPLY A SMALL AMOUNT TO AFFECTED SKIN ON BACK TWICE A DAY DIRECTED [facility] levothyroxi ne 100 mcg tablet TAKE [...] MORNING ON EMPTY STOMACH FOR 30 DAYS [facility] nortriptyli ne 75 mg capsule TAKE 2 CAPSULES BY MOUTH AT BEDTIME nortriptyli ne 75 mg capsule TAKE 2 CAPSULES BY MOUTH AT BEDTIME No nortriptyl ine 75 mg capsule TAKE 2 CAPSULES BY MOUTH AT BEDTIME [facility] quetiapine 400 mg tablet TAKE 1 TABLET BY MOUTH EVERYDAY AT BEDTIME quetiapine 400 mg tablet TAKE 1 TABLET BY MOUTH EVERYDAY AT BEDTIME No quetiapine 400 mg tablet TAKE 1 TABLET BY MOUTH EVERYDAY AT BEDTIME [facility] Xarelto 20 mg tablet TAKE 1 TABLET BY MOUTH EVERY DAY WITH FOOD Xarelto 20 mg tablet TAKE 1 TABLET BY MOUTH EVERY DAY WITH FOOD No Xarelto 20 mg tablet TAKE 1 TABLET BY MOUTH EVERY DAY WITH FOOD [facility] atorvastati n 40 mg tablet TAKE 1 TABLET BY MOUTH EVERY DAY IN THE EVENING atorvastati n 40 mg tablet TAKE 1 TABLET BY MOUTH EVERY DAY IN THE EVENING No atorvastat in 40 mg tablet TAKE 1 TABLET BY MOUTH EVERY DAY IN THE EVENING [facility] eszopiclone 3 mg [...] FOR SLEEP ONCE A DAY 30 DAYS [facility] gabapentin 300 mg capsule TAKE 1 CAPSULE BY MOUTH 4 TIMES A DAY WITH MEALS gabapentin 300 mg capsule TAKE 1 CAPSULE BY MOUTH 4 TIMES A DAY WITH MEALS No gabapentin 300 mg capsule TAKE 1 CAPSULE BY MOUTH 4 TIMES A DAY WITH MEALS [facility] nortriptyli ne 75 mg capsule TAKE 2 CAPSULES BY MOUTH AT BEDTIME nortriptyli ne 75 mg capsule TAKE 2 CAPSULES BY MOUTH AT BEDTIME No nortriptyl ine 75 mg capsule TAKE 2 CAPSULES BY MOUTH AT BEDTIME [facility] quetiapine 400 mg tablet TAKE 1 TABLET BY MOUTH EVERYDAY AT BEDTIME quetiapine 400 mg tablet TAKE 1 TABLET BY MOUTH EVERYDAY AT BEDTIME No quetiapine 400 mg tablet TAKE 1 TABLET BY MOUTH EVERYDAY AT BEDTIME [facility] atorvastati n 40 mg tablet TAKE 1 TABLET BY MOUTH EVERY DAY IN THE EVENING atorvastati n 40 mg tablet TAKE 1 TABLET BY MOUTH EVERY DAY IN THE EVENING No atorvastat in 40 mg tablet TAKE 1 TABLET BY MOUTH EVERY DAY IN THE EVENING [facility] donepezil 5 mg tablet TAKE 1 TABLET BY MOUTH EVERY DAY AT BEDTIME FOR 30 DAYS donepezil 5 mg tablet TAKE 1 TABLET BY MOUTH EVERY DAY AT BEDTIME FOR 30 DAYS No donepezil 5 mg tablet TAKE 1 TABLET BY MOUTH EVERY DAY AT BEDTIME FOR 30 DAYS [facility] eszopiclone 3 mg [...] FOR SLEEP ONCE A DAY 30 DAYS [facility] gabapentin 300 mg capsule TAKE 1 CAPSULE BY MOUTH 4 TIMES A DAY WITH MEALS gabapentin 300 mg capsule TAKE 1 CAPSULE BY MOUTH 4 TIMES A DAY WITH MEALS No gabapentin 300 mg capsule TAKE 1 CAPSULE BY MOUTH 4 TIMES A DAY WITH MEALS [facility] nortriptyli ne 75 mg capsule TAKE 2 CAPSULES BY MOUTH AT BEDTIME nortriptyli ne 75 mg capsule TAKE 2 CAPSULES BY MOUTH AT BEDTIME No nortriptyl ine 75 mg capsule TAKE 2 CAPSULES BY MOUTH AT BEDTIME [facility] quetiapine 400 mg tablet TAKE 1 TABLET BY MOUTH EVERYDAY AT BEDTIME quetiapine 400 mg tablet TAKE 1 TABLET BY MOUTH EVERYDAY AT BEDTIME No quetiapine 400 mg tablet TAKE 1 TABLET BY MOUTH EVERYDAY AT BEDTIME [facility] atorvastati n 40 mg tablet TAKE 1 TABLET BY MOUTH EVERY DAY IN THE EVENING atorvastati n 40 mg tablet TAKE 1 TABLET BY MOUTH EVERY DAY IN THE EVENING No atorvastat in 40 mg tablet TAKE 1 TABLET BY MOUTH EVERY DAY IN THE EVENING [facility] donepezil 5 mg tablet TAKE 1 TABLET BY MOUTH EVERY DAY AT BEDTIME FOR 90 DAYS donepezil 5 mg tablet TAKE 1 TABLET BY MOUTH EVERY DAY AT BEDTIME FOR 90 DAYS No donepezil 5 mg tablet TAKE 1 TABLET BY MOUTH EVERY DAY AT BEDTIME FOR 90 DAYS [facility] eszopiclone 3 mg [...] FOR SLEEP ONCE A DAY 30 DAYS [facility] gabapentin 300 mg capsule TAKE 1 CAPSULE BY MOUTH 4 TIMES A DAY WITH MEALS gabapentin 300 mg capsule TAKE 1 CAPSULE BY MOUTH 4 TIMES A DAY WITH MEALS No gabapentin 300 mg capsule TAKE 1 CAPSULE BY MOUTH 4 TIMES A DAY WITH MEALS [facility] levothyroxi ne 100 mcg tablet TAKE 1 TABLET BY MOUTH EVERY DAY IN THE MORNING ON EMPTY STOMACH levothyroxi ne 100 mcg tablet TAKE 1 TABLET BY MOUTH EVERY DAY IN THE MORNING ON EMPTY STOMACH No levothyrox ine 100 mcg tablet TAKE 1 TABLET BY MOUTH EVERY DAY IN THE MORNING ON EMPTY STOMACH [facility] nitrofurant oin monohydrate [...] HOURS FOR 7 DAYS WITH FOOD [facility] nortriptyli ne 75 mg capsule TAKE 2 CAPSULES BY MOUTH AT BEDTIME nortriptyli ne 75 mg capsule TAKE 2 CAPSULES BY MOUTH AT BEDTIME No nortriptyl ine 75 mg capsule TAKE 2 CAPSULES BY MOUTH AT BEDTIME [facility] quetiapine 400 mg tablet TAKE 1 TABLET BY MOUTH EVERYDAY AT BEDTIME quetiapine 400 mg tablet TAKE 1 TABLET BY MOUTH EVERYDAY AT BEDTIME No quetiapine 400 mg tablet TAKE 1 TABLET BY MOUTH EVERYDAY AT BEDTIME [facility] atorvastati n 40 mg tablet TAKE 1 TABLET BY MOUTH EVERY DAY IN THE EVENING atorvastati n 40 mg tablet TAKE 1 TABLET BY MOUTH EVERY DAY IN THE EVENING No atorvastat in 40 mg tablet TAKE 1 TABLET BY MOUTH EVERY DAY IN THE EVENING [facility] cefdinir 250 mg/5 mL oral suspension GIVE 6ML BY MOUTH TWO TIMES DAILY FOR 10 DAYS cefdinir 250 mg/5 mL oral suspension GIVE 6ML BY MOUTH TWO TIMES DAILY FOR 10 DAYS No cefdinir 250 mg/5 mL oral suspension GIVE 6ML BY MOUTH TWO TIMES DAILY FOR 10 DAYS [facility] donepezil 5 mg tablet TAKE 1 TABLET BY MOUTH EVERY DAY AT BEDTIME FOR 90 DAYS donepezil 5 mg tablet TAKE 1 TABLET BY MOUTH EVERY DAY AT BEDTIME FOR 90 DAYS No donepezil 5 mg tablet TAKE 1 TABLET BY MOUTH EVERY DAY AT BEDTIME FOR 90 DAYS [facility] eszopiclone 3 mg tablet TAKE 1 TABLET BY MOUTH IMMEDIATELY BEFORE BEDTIME NEEDED FOR SLEEP ONCE A DAY eszopiclone 3 mg tablet TAKE 1 TABLET BY MOUTH IMMEDIATELY BEFORE BEDTIME NEEDED FOR SLEEP ONCE A DAY No eszopiclon e 3 mg tablet TAKE 1 TABLET BY MOUTH IMMEDIATEL Y BEFORE BEDTIME NEEDED FOR SLEEP ONCE A DAY [facility] gabapentin 300 mg capsule TAKE 1 CAPSULE BY MOUTH 4 TIMES A DAY WITH MEALS gabapentin 300 mg capsule TAKE 1 CAPSULE BY MOUTH 4 TIMES A DAY WITH MEALS No gabapentin 300 mg capsule TAKE 1 CAPSULE BY MOUTH 4 TIMES A DAY WITH MEALS [facility] levothyroxi ne 100 mcg tablet TAKE [...] MORNING ON EMPTY STOMACH FOR 90 DAYS [facility] neomycin-po lymyxin-hyd rocort 3.5 mg/mL-10,00 0 unit/mL-1 % ear solution INSTILL 4 DROPS INTO AFFECTED EAR 3 TIMES A DAY neomycin-po lymyxin-hyd rocort 3.5 mg/mL-10,00 0 unit/mL-1 % ear solution INSTILL 4 DROPS INTO AFFECTED EAR 3 TIMES A DAY No neomycin-p olymyxin-h ydrocort 3.5 mg/mL-10,0 00 unit/mL-1 % ear solution INSTILL 4 DROPS INTO AFFECTED EAR 3 TIMES A DAY [facility] nitrofurant oin monohydrate /macrocryst [...] HOURS FOR 7 DAYS WITH FOOD [facility] nortriptyli ne 75 mg capsule TAKE 2 CAPSULES BY MOUTH AT BEDTIME nortriptyli ne 75 mg capsule TAKE 2 CAPSULES BY MOUTH AT BEDTIME No nortriptyl ine 75 mg capsule TAKE 2 CAPSULES BY MOUTH AT BEDTIME [facility] quetiapine 400 mg tablet TAKE 1 TABLET BY MOUTH EVERY DAY AT BEDTIME quetiapine 400 mg tablet TAKE 1 TABLET BY MOUTH EVERY DAY AT BEDTIME No quetiapine 400 mg tablet TAKE 1 TABLET BY MOUTH EVERY DAY AT BEDTIME [facility] Vital Signs Vital Name Observation Time Observation Value Daysi Lewis daisylore Body height 2024-02-09 17:51:[address] [facility] Body weight 2024-02-09 17:51:[address] [facility] BMI 2024-02-09 17:51:00 30.78 kg/m2 [facility] Oxygen saturation in Arterial blood by Pulse oximetry 2024-02-09 17:51:00 95 /min [facility] Systolic blood pressure 2024-02-09 17:51:00 111 mm[Hg] [facility] Diastolic blood pressure 2024-02-09 17:51:00 76 mm[Hg] [facility] Heart rate 2024-02-09 17:51:00 97 /min [facility] Body temperature 2024-02-09 17:51:00 37.06 [facility] Respiratory rate 2024-02-09 17:51:00 18 /min [facility] Systolic blood pressure 2023-12-20 14:22:00 140 mm[Hg] [facility] Diastolic blood pressure 2023-12-20 14:22:00 80 mm[Hg] [facility] Body height 2023-12-20 14:22:00 173.7 cm Nathenhannah Oh [facility] Body weight 2023-12-20 14:22:00 87.544 kg [facility] BMI 2023-12-20 14:22:00 29.00 kg/m2 Nathen Oh [facility] Systolic blood pressure 2023-12-20 14:22:00 140 mm[Hg] Yris nielsen [facility] Diastolic blood pressure 2023-12-20 14:22:00 80 mm[Hg] Yris nielsen [facility] Body height 2023-12-20 14:22:00 173.7 cm Nathen Oh [facility] weight 2023-12-20 14:22:00 87.544 kg Nathen Oh [facility] BMI 2023-12-20 14:22:00 29.00 kg/m2 Nathen Oh [facility] Weight 2022-11-30 18:24:00 65.63 KG Height 2022-11-30 10:47:00 170.18 CM Weight 2022-11-30 10:47:00 65.63 KG Systolic blood pressure 2022-10-21 18:34:00 133 mm[Hg] [facility] Diastolic blood pressure 2022-10-21 18:34:00 81 mm[Hg] [facility] Heart rate 2022-10-21 18:34:00 94 /min [facility] Body temperature 2022-10-21 18:34:00 36.89 [facility] Respiratory rate 2022-10-21 18:34:00 18 /min [facility] Body height 2022-10-21 18:34:[address] [facility] Body weight 2022-10-21 18:34:[address] [facility] BMI 2022-10-21 18:34:00 22.05 kg/m2 [facility] Oxygen saturation in Arterial blood by Pulse oximetry 2022-10-21 18:34:00 97 /min [facility] BP Diastolic 2022-08-23 00:00:00 85 mm[Hg] [place] [facility] Height 2022-08-23 00:00:00 67 [in_i] Howie orda [facility] BMI (Body Mass Index) 2022-08-23 00:00:00 22.9 kg/m2 [place] [facility] BP Systolic 2022-08-23 00:00:00 121 mm[Hg] Moises sutton [facility] Body Weight 2022-08-23 00:00:00 146 [lb_av] Luis Enrique willsrda [facility] BP Diastolic 2022-05-19 00:00:00 84 mm[Hg] [facility] johannrda [facility] Height 2022-05-19 00:00:00 67 [in_i] [facility] BMI (Body Mass Index) 2022-05-19 00:00:00 25.8 kg/m2 [place] [facility] BP Systolic 2022-05-19 00:00:00 131 mm[Hg] De Leon herman [facility] Body Weight 2022-05-19 00:00:00 165 [lb_av] [facility] [facility] BP Diastolic 2021-11-09 00:00:00 83 mm[Hg] [facility] johanna [facility] BP Systolic 2021-11-09 00:00:00 125 mm[Hg] De Leonchrystal gaoa [facility] Body Weight 2021-11-09 00:00:00 176.2 [lb_av] [facility] Height 2019-08-24 00:00:00 67 [in_i] [facility] BMI (Body Mass Index) 2019-08-24 00:00:00 30.9 kg/m2 [place] [facility] Body Weight 2019-08-24 00:00:00 197 [lb_av] [facility] Procedures Procedure Date / Time Performed Performing Clinicia n Source POCT MOLECULAR FLU 2024-02-09 17:58:00 Unknown, Attend ing [facility] POCT MOLECULAR STREP 2024-02-09 17:55:00 Unknown, Atte nding [facility] POCT SARS-COV-2 ANTIGEN (BINAX NOW) 2024-02-09 17:46:00 Sara Hawk [facility] XR SACRUM AND COCCYX 2022-10-21 19:07:13 Carleen Newamn [facility] ASSIGNMENT OF BENEFITS 2022-10-21 18:24:12 Docto r Unassigned, [place] [facility] REFERRAL- REQUEST/RESPONSE 2021-06-14 06:01:00 Doctor Unassigned, [place] [facility] Encounters Start Date/Time End Date/Time Encounter Type Admission Type Attending [facility] Care Department Encounter ID Source 2024-02-23 08:50:00 Outpatient Ngoc Lipscomb STLMLC [id number] [facility] 2023-09-29 10:11:00 Outpatient Ngoc Lipscomb STNEYDA STLMLC [id number] [facility] 2023-06-08 16:55:00 Outpatient Ngoc Lipscomb STNEYDA STLMLC [id number] [facility] 2023-04-28 15:21:00 Outpatient Ngoc Lipscomb STNEYAD STLMLC [id number] [facility] 2022-11-01 11:04:01 [place]patient [place] STEVENSLC STLMLC [id number] [facility] 2022-10-31 13:56:01 Outpatient Ngoc Lipscomb STEVENSLC STLMLC [id number] [facility] 2022-10-27 16:04:00 Outpatient Ngoc Lipscomb STNEYDA STLMLC [id number] [facility] 2022-07-07 09:11:03 Outpatient Ngoc Lipscomb STEVENSLC STLMLC [id number] [facility] 2022-04-20 13:33:01 [place]patient [place] STLMLC STLMLC [id number] [facility] 2022-04-05 09:11:02 Outpatient Ngoc Lipscomb STEVENSLC STLMLC [id number] [facility] 2022-02-24 10:21:04 Outpatient [place] STEVENSLC STLMLC [id number] [facility] 2022-01-03 10:49:01 Outpatient Ngoc Lipscomb [facility] [id number] [facility] 2021-08-25 14:13:06 [facility] [id number] 2021-08-18 07:48:01 Outpatient Ngoc Lipscomb [facility] 2021-07-02 10:05:04 [facility] [id number] [facility] 2024-06-19 14:49:15 2024-06-19 16:15:57 Outpatient Elective RAYNA ILIANA MHEOUT MHEOUT [id number] [facility]OUT 2024-03-02 00:00:00 2024-03-04 08:16:27 Refill Brenda Newman [facility] [id number] [facility] 2024-02-09 12:40:00 2024-02-09 13:03:15 Outpatient R BRENDA NEWMAN [facility] [id number] [facility] 2024-02-09 12:40:00 2024-02-09 13:03:15 Urgent Care Brenda Newman Unknown, Attending [facility] [id number] [id number] [id number] [facility] 2023-12-20 14:16:12 2023-12-20 14:55:16 Outpatient Elective DEEPAK CLANCY MHEOUT MHEOUT [id number] [facility]OUT 2023-12-20 14:00:00 2023-12-20 14:55:16 Office Visit Deepak Clancy [place] [id number] Trinidad Oh [facility] 2022-11-30 00:43:00 2022-12-09 14:50:00 Inpatient E JOAQUIN ELDRIDGE [facility] [id number] [facility] 2022-11-29 19:43:00 2022-11-29 19:43:00 Emergency E [facility] [id number] [facility] 2022-11-24 00:00:00 2022-11-24 00:00:00 Outpatient CLARITA_RUDY [facility] [id number] [facility] 2022-11-24 00:00:00 2022-11-24 00:00:00 Marcio Romeo MD: [address] [place] [address] , Ph. [phone] [facility] [id number] [facility] 2022-10-21 13:41:30 2022-10-21 23:59:00 Outpatient R CARLEEN [facility] [id number] [facility] 2022-10-21 13:41:30 2022-10-21 23:59:00 Hospital Encounter Brenda Newman [facility] [id number]..840.114 [id number] [id number] [id number] [facility] 2022-10-21 13:20:00 2022-10-21 14:41:13 Urgent Care Carleen Newmancy Unknown, Attending [facility] [id number] [id number] [id number] [id number] [facility] 2022-10-21 00:00:00 2022-10-21 00:00:00 Orders Only Doctor Unassigned, [place] [facility] [id number] [id number] [id number] [id number] [facility] 2022-08-23 00:00:00 2022-08-23 00:00:00 Marcio Romeo MD: [address] [place] [address] , Ph. [phone] [facility] [place] [facility] [id number] [facility] 2022-08-17 00:00:00 2022-08-17 00:00:00 Outpatient PATEL_NILES H [facility] [id number] [facility] 2022-08-17 00:00:00 2022-08-17 00:00:00 Outpatient PATEL_NILES H [facility] [id number] [facility] 2022-08-05 00:00:00 2022-08-05 00:00:00 Outpatient PATEL_NILES H [facility] [id number] [facility] 2022-06-02 00:00:00 2022-06-02 00:00:00 Outpatient PATEL_NILES H [facility] [id number] [facility] 2022-06-02 00:00:00 2022-06-02 00:00:00 Outpatient PATEL_NILES H [facility] [id number] [facility] 2022-06-02 00:00:00 2022-06-02 00:00:00 Outpatient PATEL_NILES H [facility] [id number] [facility] 2022-06-02 00:00:00 2022-06-02 00:00:00 Outpatient PATEL_NILES H [facility] [id number] [facility] 2022-06-02 00:00:00 2022-06-02 00:00:00 Outpatient PATEL_NILES H [facility] [id number] [facility] 2022-06-02 00:00:00 2022-06-02 00:00:00 Marcio Romeo MD: [address] [place] [address] , Ph. [phone] [facility] [id number] [facility] 2022-05-19 00:00:00 2022-05-19 00:00:00 Marcio Romeo MD: [address] [place] [address] , Ph. [phone] [facility] [place] [facility] [id number] [facility] 2022-03-31 00:00:00 2022-03-31 00:00:00 Outpatient PATEL_NILES H [facility] [id number] [facility] 2022-03-31 00:00:00 2022-03-31 00:00:00 Outpatient PATEL_NILES H [facility] [id number] [facility] 2022-02-10 00:00:00 2022-02-10 00:00:00 Outpatient PATEL_NILES H [facility] [id number] [facility] 2022-02-10 00:00:00 2022-02-10 00:00:00 Marcio Romeo MD: [address] [place] [address] , Ph. [phone] [facility] [place] [facility] [id number] [facility] 2021-11-09 00:00:00 2021-11-09 00:00:00 Outpatient PATEL_NILES H [facility] [id number] [facility] 2021-11-09 00:00:00 2021-11-09 00:00:00 Marcio Romeo MD: [address] [place] [address] , Ph. [phone] [facility] [place] [facility] [place] [id number] [facility] 2021-07-16 14:30:00 2021-07-16 14:30:[address] [facility] [id number] [facility] 2021-06-14 00:00:00 2021-06-14 00:00:00 Orders Only Doctor Unassigned, [place] [facility] [id number] [id number] [id number] [facility] 2021-05-22 09:58:00 2021-05-22 09:58:00 Outpatient PATEL_NILES H [facility] 211 [facility] 2021-05-22 00:00:00 2021-05-22 00:00:00 Marcio Romeo MD: [address] [place] [address] , Ph. [phone] [facility] [place] [id number] [facility] 2021-02-22 09:04:00 2021-02-22 09:04:00 Outpatient PATEL_NILES H [facility] [id number] [facility] 2021-02-20 12:29:00 2021-02-20 12:29:00 Outpatient PATEL_NILES H [facility] [id number] [facility] 2021-02-20 00:00:00 2021-02-20 00:00:00 Marcio Romeo MD: [place] [address] , Ph. [phone]) --2007 [facility] [place] [facility] [place] [id number] [facility] 2020-11-21 11:39:00 2020-11-21 11:39:00 Outpatient PATEL_NILES H [facility] 14 [facility] 2020-11-21 00:00:00 2020-11-21 00:00:00 Marcio Romeo MD: [place] [address] , Ph. [phone]) --2007 [facility] [place] [facility] [place] [id number] [facility] 2020-08-22 12:10:00 2020-08-22 12:10:00 Outpatient PATEL_NILES H [facility] [id number] [facility] 2020-08-22 00:00:00 2020-08-22 00:00:00 Marcio Romeo MD: [place] [address] , Ph. [phone]) --2007 [facility] [place] [facility] [place] [id number] [facility] 2020-05-30 12:32:00 2020-05-30 12:32:00 Outpatient PATEL_NILES H [facility] [id number] [facility] 2020-05-30 00:00:00 2020-05-30 00:00:00 Marcio Romeo MD: [place] [address] , Ph. [phone]) --2007 [facility] [place] [facility] [id number] [facility] 2020-02-29 12:16:00 2020-02-29 12:16:00 Outpatient PATEL_NILES H [facility] [id number] [facility] 2020-02-29 00:00:00 2020-02-29 00:00:00 Marcio Romeo MD: [address] [place] [id number] , Ph. [phone]) --2007 [facility] [place] [facility] [id number] [facility] 2019-11-23 12:29:00 2019-11-23 12:29:00 Outpatient PATEL_NILES H [facility] 15 [facility] 2019-11-23 00:00:00 2019-11-23 00:00:00 Marcio Romeo MD: [address] [place] [address] , Ph. [phone] --2007 [facility] [place] [facility] [id number] [facility] 2019-09-18 12:40:00 2019-09-18 12:40:00 Outpatient PATEL_NILES H [facility] 17 [facility] 2019-08-24 10:55:00 2019-08-24 10:55:00 Outpatient PATEL_NILES H [facility] 16 [facility] 2019-08-24 00:00:00 2019-08-24 00:00:00 Marcio Romeo MD: [address] [place] [address] , Ph. [phone] [facility] [place] [facility] [id number] [facility] 2019-05-18 09:59:00 2019-05-18 09:59:00 Outpatient PATEL_NILES H [facility] 8 [facility] 2019-05-18 00:00:00 2019-05-18 00:00:00 Marcio Romeo MD: [address] [place] [phone] , Ph. [phone] --2007 [facility] [id number] [facility] 2019-03-14 12:15:00 2019-03-14 12:15:00 Outpatient PATEL_NILES H [facility] 6 [facility] 2019-01-26 00:00:00 2019-01-26 00:00:00 Marcio Romeo MD: [address] [place] [phone] , Ph. [phone]) --2007 [facility] [id number] [facility] 2018-10-31 00:00:00 2018-10-31 00:00:00 Orders Only Doctor Unassigned, [place] [facility] [id number] Results Test Description Test Time Test Comments Results Result Co mments Source [facility] MOLECULAR [id number] 18:03:38* Test Item Value Reference Range Interpretation Comme nts POCT Molecular Strep (test c ode = 63969-8) Negative Negative Lab Interpretation (test cod e = 76207-9) Normal [facility] SARS-COV-2 ANTIGEN (BINAX NOW)2024-02-09 18:01:00* Test Item Value Reference Range Interpretation Comme nts POCT SARS-COV-2 ANTIGEN (test code = 56443-9) Not Detected Not Detected, See Comment On board controls acceptable with C Line (test code = 3574) Yes Lab Interpretation (test code = 24103-7) Normal [facility] [id number] 06:05:00 * Test Item Value Reference Range Interpretation Comme nts GLUCOSE (test code = 06D) 94 mg/dL 75-100 SODIUM (test code = 01A) 137 mmol/L 136-145 POTASSIUM (test code = 01B) 4.5 mmol/L 3.6-5.1 CHLORIDE (test code = 04A) 103 mmol/L 98-107 CO2 (test code = 02A) 30 mmol/L 20-31 ANION GAP (test code = ANG) 8.5 mmol/L BUN (test code = 05D) 9 mg/dL 9-23 CREATININE (test code = 03E) 0.8 mg/dL 0.6-1.0 GFR (test code = GFR) 74 mL/min/1.73m\\S\\2 See_Comment L [Automated message] The system which generated this result transmitted reference range: >=90. The reference range was not used to interpret this result as normal/abnormal. GFR (test code = GFRAA) 86 mL/min/1.73m\\S\\2 See_Comment L [Automated message] The system which generated this result transmitted reference range: >=90. The reference range was not used to interpret this result as normal/abnormal. EGFR (test code = EGFR) eGFR BY CKD-EPI CALCULATION IS NOT RECOMMENDED FOR PATIENTS UNDER 18 YEARS OF AGE. BUN/CREA (test code = BCR) 11 12-20 L CALCIUM (test code = 09D) 9.6 mg/dL 8.3-10.6 BILI TOTAL (test code = 11A) 0.4 mg/dL 0.2-1.0 PROTEIN (test code = 07D) 6.6 g/dL 5.7-8.2 ALBUMIN (test code = 08D) 4.2 g/dL 3.2-4.8 GLOBULIN (test code = GLB) 2.4 g/dL 1.5-3.8 ALB/GLOB (test code = AGRR) 1.8 1.0-2.6 ALK PHOS (test code = 35A) 96 IU/L 46-116 AST (test code = 30A) 19 IU/L See_Comment [Automated message] The system which generated this result transmitted reference range: <=33. The reference range was not used to interpret this result as normal/abnormal. ALT (test code = 31A) 22 IU/L 10-49 BASIC METABOLIC [id number] 11:43:00* Test Item Value Reference Range Interpretation [...] 0.6-1.0 GFR (test code = GFR) 87 mL/min/1.73m\\S\\2 See_Comment L [Automated message] The system which generated this result transmitted reference range: >=90. The reference range was not used to interpret this result as normal/abnormal. GFR (test code = GFRAA) 101 mL/min/1.73m\\S\\2 See_Comment [Automated message] The system which generated [...] nts WBC (test code = WBC) 8.1 10\\S\\3/uL 4.5-11.0 RBC (test code = RBC) 4.74 10\\S\\6/uL 3.80-5.80 HGB (test code = HBG) 15.5 g/dL 12.0-15.5 HCT (test code = HCT) 45.1 % 35.0-44.0 H MCV (test code = MCV) 95.1 fL 81.0-99.0 MCH (test code = MCH) 32.7 pg 27.0-31.0 H MCHC (test code = MCHC) 34.4 g/dL 32.0-36.0 RDW (test code = RDW) 12.7 % 11.5-14.5 PLT (test code = PLT) 300 10\\S\\3/uL 130-400 MPV (test code = MPV) 9.2 fL 9.4-12.4 L NEUTROP # (test code = NE#) 5.4 10\\S\\3/uL 1.6-8.0 LYMPH # (test code = LY#) 1.7 10\\S\\3/uL 1.1-3.5 MONOCYTE # (test code = MO#) 0.8 10\\S\\3/uL 0.0-1.1 EOSINOPH # (test code = EO#) 0.1 10\\S\\3/uL 0.0-0.7 BASOPHIL # (test code = BA#) 0.1 10\\S\\3/uL 0.0-0.3 IG # (test code = IG#) 0.03 10\\S\\3/uL 0.00-0.06 NRBC # (test code = NRBC#) 0.00 10\\S\\3/uL 0.00-0.01 NEUTROPH % (test code = NE%) [...] MORPH (test code = RBCMOR) NORMAL B12 [id number] 03:45:00* Test Item Value Reference Range Interpretation Comme nts VIT B12 (test code = A60) 555.0 pg/mL 211.0-911.0 THYROID PANEL/SCREEN (TSH)2022-11-30 03:45:00* Test Item Value Reference Range Interpretation Comme [facility] TSH (test code = A57) 1.495 uIU/mL 0.550-4.780 [id number] 03:43:00* Test Item Value Reference Range Interpretation Comme [facility] FOLATE (test code = A75) 14.1 ng/mL See_Comment [Automated [employer]] The system which generated this result transmitted reference range: >=5.5. The reference range was not used to interpret this result as normal/abnormal. LIPID [id number] 02:01:00* Test Item Value Reference Range Interpretation Comme [facility] CHOLESTROL (test code = 44A) 158 mg/dL 140-200 TRIGLYCERI (test code = 42B) 214 mg/dL See_Comment H [Automated [employer]] The system which generated this result transmitted [...] CHL/HDL (test code = CHR) 2.8 0.0-3.4 [id number] 02:01:00* Test Item Value Reference Range [facility]ation [facility] MAGNESIUM (test code = 48A) 2.0 mg/dL 1.6-2.6 [id number] 02:00:00* Test Item Value Reference Range Interpretation Comme [facility] PREALBUMIN (test code = 08E) 37 mg/dL 10-40 [id number] 01:57:00* Test Item Value Reference Range Interpretation Comme [facility] Hb A1C % (test code = HBA) 5.2 % 3.8-6.4 A1C % (test code = A1C) HbA1c (% ) Reference Range Normal <5.7 Prediabetes 5.7-6.4 Di[address] >=6.5 CT HEAD W/O [id number] 22:40:30 [facility] : 1950 Sex: FCT headHistory: Paranoid disorder;bizarre paranoid behaviorComparison: None at this timeLocation: A64Oooitnosc: Noncontrast CT scan of the head was [...] Son Arevalo MD 11/29/2022 10:40 PM CDT [id number] 21:38:00* Test Item Value Reference Range Interpretation [...] code = 30A) 27 IU/L See_Comment [Automated [employer] ge] The system which generated this result [...] the FDA and the [employer] (CAP) are more stringent than those required for this test. Therefore, the result should be interpreted with caution and close attention to other clinical and epidemiological data [id number] 21:34:00* Test Item Value Reference Range Interpretation Comme nts ACETAMINPH (test code = 94M) <0.2 mg/dL 1.2-2.5 L ALCOHOL BLOOD (ETOH)2022-11-29 21:34:00* Test Item Value Reference Range Interpretation Comme nts ETOH (test code = HALC) ETHANOL The result is to be used only for medical purposes ALCOHOL (test code = 56A) <10 mg/dL See_Comment [Automated [employer]] The system which generated this result transmitted reference range: <=10. The reference range was not used to interpret this result as normal/abnormal. [id number] 21:33:00* Test Item Value Reference Range Interpretation Comme nts SALICYLATE (test code = 94B) <3.0 mg/dL 15.0-30.0 L AMMONIA [id number] 21:32:00* Test Item Value Reference Range Interpretation Comme nts AMMONIA (test code = 54A) <10 umol/L 11-32 L BASIC METABOLIC [id number] 21:30:00* Test Item Value Reference Range Interpretation [...] 0.6-1.0 GFR (test code = GFR) 64 mL/min/1.73m\\S\\2 See_Comment L [Automated message] The system which generated this result transmitted reference range: >=90. The reference range was not used to interpret this result as normal/abnormal. GFR (test code = GFRAA) 74 mL/min/1.73m\\S\\2 See_Comment L [Automated message] The system which generated this result transmitted reference range: >=90. The reference range was not used to interpret this result as normal/abnormal. EGFR (test code = EGFR) eGFR BY CKD-EPI CALCULATION IS NOT RECOMMENDED FOR PATIENTS UNDER 18 YEARS OF AGE. BUN/CREA (test code = BCR) 14 12-20 CALCIUM (test code = 09D) 9.5 mg/dL 8.3-10.6 URINALYSIS WITH [id number] 21:29:00* Test Item Value Reference Range Interpretation [...] code = USPERM) /HPF NONE DRUGS OF [id number] 21:24:00* Test Item Value Reference Range Interpretation [...] nts WBC (test code = WBC) 11.5 10\\S\\3/uL 4.5-11.0 H RBC (test code = RBC) 4.74 10\\S\\6/uL 3.80-5.80 HGB (test code = HBG) 15.7 g/dL 12.0-15.5 H HCT (test code = HCT) 45.6 % 35.0-44.0 H MCV (test code = MCV) 96.2 fL 81.0-99.0 MCH (test code = MCH) 33.1 pg 27.0-31.0 H MCHC (test code = MCHC) 34.4 g/dL 32.0-36.0 RDW (test code = RDW) 12.6 % 11.5-14.5 PLT (test code = PLT) 325 10\\S\\3/uL 130-400 MPV (test code = MPV) 9.4 fL 9.4-12.4 NEUTROP # (test code = NE#) 7.0 10\\S\\3/uL 1.6-8.0 LYMPH # (test code = LY#) 3.3 10\\S\\3/uL 1.1-3.5 MONOCYTE # (test code = MO#) 1.0 10\\S\\3/uL 0.0-1.1 EOSINOPH # (test code = EO#) 0.1 10\\S\\3/uL 0.0-0.7 BASOPHIL # (test code = BA#) 0.1 10\\S\\3/uL 0.0-0.3 IG # (test code = IG#) 0.02 10\\S\\3/uL 0.00-0.06 NRBC # (test code = NRBC#) 0.00 10\\S\\3/uL 0.00-0.01 NEUTROPH % (test code = NE%) [...] 0.0-0.2 MANDIFF (test code = MDIFF) NO Notes HPI -Current Outpatient Medications:Past Medical History:No family history on file.Tobacco Use: High Risk (12/20/2023)Review of SystemsAllergiesNeurological ExamMotorGaitPhysical Exam:Assessment/Plan Date/Time Note Provider Source 2023-12-21 20:47:17 [facility] 2023-12-21 20:47:17 Deepak Clancy MD - 12/20/2023 2:00 PM CDT Imaging medication Kylie Kaplan 1950 BP 140/80 | Ht 1.737 m (5' 8.4") | Wt 87.5 kg (193 lb) | BMI 29.00 kg/m? Chief Complaint Patient presents with Memory Loss states she is doing a lot better. Sleep Apnea Daughter states she has not been using CPAP for about three weeks. They have moved and she has not had it with her. ESS 0 73yr old woman with h/o memory loss and RENE , insomnia is here for followup. She is accompanied by her and daughter who provide the history. They have moved to their father in laws house and they have not brought her cpap machine so she has ot been using it. Her has been managing her medications. She is seeing a psychiatrist Dr Garcia for 1 year now and they have made some medications changes which has helped signficanlty. Saw them 2 weeks ago. Her family are happy with her mental status and functioning. donepezil (Aricept) 10 MG tablet, TAKE 1 TABLET BY MOUTH EVERY DAY AT BEDTIME FOR 90 DAYS 90 DAYS, Disp: 90 tablet, Rfl: 1 Eliquis 5 MG tablet, TAKE 1 TABLET BY MOUTH TWICE A DAY Oral for 30, Disp: , Rfl: levothyroxine (Synthroid, Levoxyl) 112 MCG tablet, Take 112 mcg by mouth 1 time each day., Disp: , Rfl: LORazepam (Ativan) 0.5 MG tablet, Take 0.5 mg by mouth 3 times a day as needed., Disp: , Rfl: memantine (Namenda) 10 MG tablet, TAKE 1 TABLET BY MOUTH TWICE A DAY FOR 90 DAYS, Disp: 180 tablet, Rfl: 1 OLANZapine (ZyPREXA) 5 MG tablet, Take 5 mg by mouth in the morning and 5 mg at noon., Disp: , Rfl: sertraline (Zoloft) 50 MG tablet, Take 1 tablet by mouth 1 time each day at the same time. Take 11/2 tab a day, Disp: , Rfl: QUEtiapine (SEROquel) 200 MG tablet, Take 200 mg by mouth. Take 1 tab in am and 2 tabs atnight, Disp: , Rfl: Diagnosis Date Alcoholism (CMS/HCC) (HCC) Depression with anxiety DVT (deep vein thrombosis) in Sleep apnea Thyroid disorder Past Surgical History: Procedure Laterality Date TONSILLECTOMY TUBAL LIGATION Patient History Smoking Tobacco Use: Some Days Smokeless Tobacco Use: Current Passive Exposure: Current Alcohol Use: Not on file Physical Activity: Not on file Psychiatric/Behavioral: Positive for sleep disturbance. The patient is nervous/anxious. Allergen Reactions Codeine Unknown Penicillin G Unknown Mental Status Awake, alert and oriented to person, place and time. Speech is normal. Language is fluent with no aphasia. Strength is 5/5 throughout all four extremities. Casual gait is normal including stance, stride, and arm swing. Neurological: Motor: Motor strength is normal. Psychiatric: Speech: Speech normal. 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 Consider increasing at next visit. Continue memantine 10 twice a day. Other amnesia - donepezil (Aricept) 10 MG tablet; Take 1 tablet by mouth 1 time each day. - memantine (Namenda) 10 MG tablet; Take 1 tablet by mouth in the morning and 1 tablet in the evening. Anxiety and depression Comments: She is seeing a psychiatrist and has been doing better with her depression. Obstructive sleep apnea Comments: She has not been compliant with CPAP use due to their move. I have recommended compliance with CPAP to help with memory On the day of this established visit I personally spent 30-39 minutes performing selections from the following list: chart preparation, reviewing history, performing the medically necessary appropriate examination, counseling and education of the patient/family/caregiver, ordering medications, test, or procedures, referring and communicating with health nanny caregiver (when not reported separately) documenting clinical information in the electronic or other health record, independently interpreting results (not reported separately) communicaitng results to the patient/family/caregiver, and care coordination (not reported separately). [facility] [address] [address] [address] PH: [phone] [facility] Due Date Last Done Comments CT Colonography 1950 Colonoscopy 1950 Colorectal Cancer Screening 1950 FIT-DNA 1950 FIT 1950 FOBT 1950 Lipid Panel 1950 Medicare Annual Wellness (AWV) 1950 Sigmoidoscopy 1950 Pneumococcal Vaccine: 65+ Ye ars (1 of 2 - PCV) 1957 DTaP/Tdap/Td Vaccines (1 - Tdap) 1970 Mammogram 1991 Zoster Vaccines (1 of 2) 2001 Respiratory Syncytial Virus (RSV) or >=60 (1 - 1-dose 60+ series) 2011 Influenza Vaccine (#1) 2023 HIB Vaccines Aged Out No longer eligi ble based on patient's age to complete this topic HPV Vaccines Aged Out No longer eligi ble based on patient's age to complete this topic Hepatitis A Vaccines Aged Out No long er eligible based on patient's age to complete this topic Hepatitis B Vaccines Aged Out No long er eligible based on patient's age to complete this topic IPV Vaccines Aged Out No longer eligi ble based on patient's age to complete this topic Meningococcal Vaccine Aged Out No sharath jonathan eligible based on patient's age to complete this topic Rotavirus Vaccines Aged Out No longer eligible based on patient's age to complete this topic [id number] 20:47:17 Diagnosis 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
[2024-07-04 17:10] LABS: Absolute Eosinophils 0.1 K/uL (0-0.5); Absolute Lymphocytes (CBC) 2.6 K/uL (0.7-4.9); Absolute Monocytes 0.9 K/uL (0.1-1.3); Absolute Neutrophil 3.5 K/uL (1.8-8.0); Basophils % 0.7 % (0-1.3); Hematocrit 42.7 % (36.0-45.0); Hemoglobin 14.2 g/dL (12.0-15.0); Lymphocytes % 35.7 % (15.3-44.8); MCH 29.2 pg (27.0-35.0); MCHC 33.3 g/dL (32.0-36.0); MCV 87.5 fL (80-100); MPV 7.7 fL (7.6-11.3); Neutrophils % 48.6 % (41.7-73.7); Platelets 257 thou/uL (152-406); RBC Red Blood Cell Count 4.89 M/uL (3.86-4.86)
[2024-07-04 17:24] LABS: ALT/SGPT 103 U/L (13-56); AST/SGOT 65 U/L (15-37); Albumin 3.6 g/dL (3.4-5.0); Alkaline Phosphatase 102 U/L (45-117); Anion Gap 8.2 mEq/L (5.0-15.0); BUN Blood Urea Nitrogen 21 mg/dL (7-18); Bicarbonate 29 mEq/L (21-32); Bilirubin Direct < 0.2 mg/dL (0-0.2); Bilirubin Indirect, Calculated 0.1 mg/dL (0.2-0.8); Bilirubin Total 0.3 mg/dL (0.2-1.0); Globulin 3.7 g/dL (2.3-3.5); Glomerular Filtration Rate 50 ml/min (=/>90); Glucose Level 87 mg/dL (74-106); Potassium 4.2 mEq/L (3.5-5.1); Protein, Total 7.3 g/dL (6.4-8.2); Sodium Level 138 mEq/L (136-145); Troponin High Sensitivity < 3.0 pg/mL (<58.9)
--- NOTE | 2024-07-04 17:52 | RAD REPORT ---
Procedure: Chest Single View HISTORY: Chest pain COMPARISON: 2022 FINDINGS: The lungs appear clear of acute infiltrate. No significant pleural effusion noted. The heart is normal size. IMPRESSION: No acute abnormality is displayed.
--- NOTE | 2024-07-04 19:26 | EDPHYS ---
Physician Documentation [facility] Name: Kylie Kaplan Age: 74 yrs Sex: Female : 1950 Arrival Date: 07/04/2024 Time: 16:19 Bed 2 Private MD: ED Physician Remberto Ambrose HPI: 07/04 17:01 This 74 yrs old Female presents to ER via EMS with complaints of Chest Pain. rt 17:01 Patient presents to the ED with an intermittent sharp chest pain lasting for about 1 rt minute for the past several months, reports that she has about 3 episodes per month. Denies aggravating factors. Patient states that she had another episode today that lasted for about 15 minutes, has subsequently resolved. States that this time it radiated to her neck. Denies other acute complaints at this time, received 324 of aspirin prior to arrival, symptoms are moderate in severity, no other aggravating or alleviating factors.. Historical: - Allergies: 16:33 PENICILLINS; me1 - PMHx: 16:33 Anxiety; Hyperlipidemia; DVT; Thyroid problem; Dementia; me1 - Immunization history:: Adult Immunizations up to date. - Infectious Disease History:: Denies. - Social history:: Smoking status: Patient/guardian denies using tobacco, but has a distant history of tobacco abuse. - Family history:: not pertinent. ROS: 17:01 Constitutional: Negative for fever, chills, and weight loss, Respiratory: Negative for rt shortness of breath, cough, wheezing, and pleuritic chest pain, Abdomen/GI: Negative for abdominal pain, nausea, vomiting, diarrhea, and constipation, MS/Extremity: Negative for injury and deformity, Skin: Negative for injury, rash, and discoloration, Neuro: Negative for headache, weakness, numbness, tingling, and seizure, 17:01 Cardiovascular: Positive for chest pain, Negative for palpitations, Exam: 17:01 Constitutional: This is a well developed, well nourished patient who is awake, alert, rt and in no acute distress. Head/Face: Normocephalic, atraumatic. Chest/axilla: Normal chest wall appearance and motion. Nontender with no deformity. No lesions are appreciated. Cardiovascular: Regular rate and rhythm with a normal S1 and S2. No gallops, murmurs, or rubs. Normal PMI, no JVD. No pulse deficits. Respiratory: Lungs have equal breath sounds bilaterally, clear to auscultation and percussion. No rales, rhonchi or wheezes noted. No increased work of breathing, no retractions or nasal flaring. Abdomen/GI: Soft, non-tender, with normal bowel sounds. No distension or tympany. No guarding or rebound. No evidence of tenderness throughout. Skin: Warm, dry with normal turgor. Normal color with no rashes, no lesions, and no evidence of cellulitis. MS/ Extremity: Pulses equal, no cyanosis. Neurovascular intact. Full, normal range of motion. Neuro: Awake and alert, GCS 15, oriented to person, place, time, and situation. Cranial nerves II-XII grossly intact. Motor strength 5/5 in all extremities. Sensory grossly intact. Cerebellar exam normal. Normal gait. 17:01 ECG was reviewed by the Attending Physician. Vital Signs: 16:29 BP 137 / 87; Pulse 77; Resp 18; Temp 98.1; Pulse Ox 96% ; Weight 90.72 kg; Height 5 ft. me1 7 in. ; Pain 5/10; 17:00 BP 116 / 73; Pulse 80; Resp 18; Pulse Ox 97% ; me1 18:00 BP 128 / 68; Pulse 80; Resp 16; Pulse Ox 97% ; me1 19:00 BP 144 / 69; Pulse 80; Resp 16; Pulse Ox 98% ; me1 19:31 BP 115 / 57; Pulse 82; Resp 16; Temp 98.1; Pulse Ox 98% ; me1 16:29 Body Mass Index 31.32 (90.72 kg, 170.18 cm) me1 16:29 Pain Scale: Adult me1 MDM: 16:41 Medical Screening Exam initiated rt 19:49 Differential diagnosis: Nonspecific chest pain, ACS, pneumonia, pneumothorax. HEART rt Score: History: Slightly Suspicious (0), ECG: Non specific repolarization disturbance / LBTB / PM (1), Age: > or = 65 years (2), Risk Factors: 1 or 2 risk factors (1), Troponin: < or = 1 x Normal Limit (0), Total Score = 4. The patient was not given aspirin in the Emergency Department. Administered by EMS. Data reviewed: vital signs, nurses notes, lab test result(s), EKG, radiologic studies. Consideration of Admission/Observation Escalation of care including admission/observation considered. Discussed admission with the patient, she states that she is strongly desirous of discharge, wishes to follow-up with her nuclear spectroscopist as an outpatient. She is to negative troponins, she was instructed to follow-up with her nuclear spectroscopist, and to return if she develops any worsening symptoms. Patient understands that cardiac etiology has not been completely ruled out.. Independent interpretation of the following test(s) in the Emergency Department X-Ray: My interpretation is No infiltrate seen on my interpretation of x-ray images. Test considered but Not performed: CT: Low suspicion for PE clinically, she is on anticoagulants, do not believe that CT angiogram is indicated to rule out pulmonary embolus. Care significantly affected by the following chronic conditions: Hyperlipidemia. Counseling: I had a detailed discussion with the patient and/or guardian regarding the historical points, exam findings, and any diagnostic results supporting the discharge/admit diagnosis, lab results, radiology results, the need for outpatient follow up, to return to the emergency department if symptoms worsen or persist or if there are any questions or concerns that arise at home. Response to treatment: the patient's symptoms have resolved after treatment, the patient's pain is gone. 07/04 16:52 Order name: Basic Metabolic Panel; Complete Time: 17:51 rt 07/04 16:52 Order name: CBC with Diff; Complete Time: 17:51 07/04 16:52 Order name: LFT's; Complete Time: 17:51 07/04 16:52 Order name: Troponin HS; Complete Time: 17:51 07/04 18:35 Order name: Troponin High Sensitivity; Complete Time: 19:23 07/04 16:52 Order name: XRAY Chest (1 view); Complete Time: 18:07 07/04 16:52 Order name: Cardiac monitoring; Complete Time: 16:57 07/04 16:52 Order name: EKG - Nurse/Tech; Complete Time: 16:57 07/04 16:52 Order name: IV Saline Lock; Complete Time: 16:57 07/04 16:52 Order name: Labs collected and sent; Complete Time: 16:57 07/04 16:52 Order name: O2 Per Protocol; Complete Time: 16:57 07/04 16:52 Order name: O2 Sat Monitoring; Complete Time: 16:57 rt EC:01 Rate is 77 beats/min. Rhythm is regular, 1st Degree Block with No ectopy. QRS [place] is rt Normal. IN interval is prolonged at 296 msec. QRS interval is normal. QT interval is normal. No Q waves. T waves are Normal. No ST changes noted. Interpreted by me. Administered Medications: No medications were administered Disposition Summary: 07/04/24 19:25 Discharge Ordered Notes: Location: Home rt Problem: new rt Symptoms: have improved rt Condition: Stable rt Diagnosis - Chest pain, unspecified rt Followup: rt - With: Private Physician - When: 2 - 3 days - Reason: Discharge Instructions: - Discharge Summary Sheet rt - Nonspecific Chest Pain, Adult rt Forms: - Medication Reconciliation Form rt - Antibiotic Education rt - Prescription Opioid Use rt - Patient Portal Instructions rt - Leadership Thank You Letter rt Signatures: Dispatcher [employer] EDRemberto Johns MD MD rt Teresa Vieira RN RN me1 Corrections: (The following items were deleted from the chart) 17:19 17:01 Rate is 77 beats/min. Rhythm is regular, 1st Degree Block with No ectopy. QRS rt [place] is Normal. IN interval is normal. QRS interval is normal. QT interval is normal. No Q waves. T waves are Normal. No ST changes noted. Interpreted by me. rt
--- NOTE | 2024-07-04 19:26 | ER ---
Nurse's Notes [facility] Name: Kylie Kaplan Age: 74 yrs Sex: Female : 1950 Arrival Date: 07/04/2024 Time: 16:19 Bed 2 Private MD: Diagnosis: Chest pain, unspecified Presentation: 07/04 16:29 Chief complaint: EMS states: toned out for chest pain that is intermittent, radiates to me1 her back and up bilateral sides of her neck with accompanying dizziness. Given ASA 324 mg PO. 18 g RAC. Coronavirus screen: Vaccine status: Patient reports being unvaccinated. Ebola Screen: No symptoms or risks identified at this time. Initial Sepsis Screen: Does the patient meet any 2 criteria? No. Patient's initial sepsis screen is negative. Does the patient have a suspected source of infection? No. Patient's initial sepsis screen is negative. Risk Assessment: Do you want to hurt yourself or someone else? Patient reports no desire to harm self or others. Onset of symptoms was July 04, 2024 at 15:30. 16:29 Method Of Arrival: EMS: [facility] 16:29 Acuity: TONY 3 me1 Triage Assessment: 16:33 General: Appears uncomfortable, well groomed, well developed, well nourished, Behavior me1 is calm, cooperative, appropriate for age, Reports midsternal cp that radiates to her back and up bilateral sides of her neck. Pain is intermittent, 5/10 and is a "deep ache". Pain: Complains of pain in chest Pain radiates to back and bilateral sides of neck. EENT: No signs and/or symptoms were reported regarding the EENT system. Neuro: Level of Consciousness is awake, alert, obeys commands, Oriented to person, place, time, situation, Appropriate for age. Cardiovascular: Patient's skin is warm and dry. Cardiovascular: Reports chest pain. Respiratory: Airway is patent Respiratory effort is even, unlabored, Respiratory pattern is regular, symmetrical. GI: No signs and/or symptoms were reported involving the gastrointestinal system. : No signs and/or symptoms were reported regarding the genitourinary system. Derm: Skin is intact, is healthy with good turgor, Skin is pink, warm \\T\\ dry. Musculoskeletal: No signs and/or symptoms reported regarding the musculoskeletal system. Historical: - Allergies: 16:33 PENICILLINS; me1 - PMHx: 16:33 Anxiety; Hyperlipidemia; DVT; Thyroid problem; Dementia; me1 - Immunization history:: Adult Immunizations up to date. - Infectious Disease History:: Denies. - Social history:: Smoking status: Patient/guardian denies using tobacco, but has a distant history of tobacco abuse. - Family history:: not pertinent. Screenin:36 [facility] ED Fall Risk Assessment (Adult) History of falling in the last 3 months, me1 including since admission No falls in past 3 months (0 pts) Confusion or Disorientation No (0 pts) Intoxicated or Sedated No (0 pts) Impaired Gait No (0 pts) Mobility Assist Device Used No (0 pt) Altered Elimination No (0 pt) Score/Fall Risk Level 0 - 2 = Low Risk Maintained a safe environment, Provided non-skid footwear, Hourly rounding (assess needs \\T\\ fall precautionary measures) done. Abuse screen: Denies threats or abuse. Nutritional screening: No deficits noted. Tuberculosis screening: No symptoms or risk factors identified. Assessment: 16:36 Reassessment: See triage assessment. me1 16:36 Pain: Complains of pain in chest Pain began 1 hour ago. me1 Vital Signs: 16:29 BP 137 / 87; Pulse 77; Resp 18; Temp 98.1; Pulse Ox 96% ; Weight 90.72 kg; Height 5 ft. me1 7 in. ; Pain 5/10; 17:00 BP 116 / 73; Pulse 80; Resp 18; Pulse Ox 97% ; me1 18:00 BP 128 / 68; Pulse 80; Resp 16; Pulse Ox 97% ; me1 19:00 BP 144 / 69; Pulse 80; Resp 16; Pulse Ox 98% ; me1 19:31 BP 115 / 57; Pulse 82; Resp 16; Temp 98.1; Pulse Ox 98% ; me1 16:29 Body Mass Index 31.32 (90.72 kg, 170.18 cm) me1 16:29 Pain Scale: Adult fl1 ED Course: 16:28 Patient arrived in ED. me1 16:33 Triage completed. me1 16:33 Arm band placed on Patient placed in an exam room. me1 16:36 Patient has correct armband on for positive identification. Bed in low position. Call [facility] light in reach. Side rails up X 1. Provided Education on: POC. Verbalized understanding.. Client placed on continuous cardiac and pulse oximetry monitoring. NIBP monitoring applied. groundwater monitoring technician on. Pulse ox on. NIBP on. 16:36 No provider procedures requiring assistance completed. Patient maintains SpO2 me1 saturation greater than 95% on room air. 16:40 Remberto Ambrose MD is Attending Physician. rt 16:57 Basic Metabolic Panel Sent. me1 16:57 CBC with Diff Sent. me1 16:57 LFT's Sent. me1 16:57 Troponin HS Sent. me1 16:58 Initial lab(s) drawn, by me, sent to lab. EKG done, by ED staff, reviewed by Remberto Ambrose MD. Maintain EMS IV. Dressing intact. Good blood return noted. Site clean \\T\\ dry. Gauge \\T\\ site: 18g RFA. Flushed with 10 mL NS. 17:24 XRAY Chest (1 view) In Process Unspecified. EDMS 18:46 Teresa Vieira, RN is Primary Nurse. fl1 18:47 Troponin High Sensitivity Sent. me1 19:38 IV discontinued, intact, bleeding controlled, No redness/swelling at site. Pressure bm8 dressing applied. Administered Medications: No medications were administered Medication: 16:36 VIS not applicable for this client. fl1 Outcome: 19:25 Discharge ordered by . rt 19:38 Discharged to home ambulatory, with family, bm8 19:38 Condition: stable 19:38 Discharge instructions given to patient, family, Instructed on discharge instructions, follow up and referral plans. no drinking with medication, no driving heavy equipment, medication usage, safety practices, Demonstrated understanding of instructions, follow-up care, medications, 19:39 Patient left the ED. bm8 Signatures: Dispatcher [employer] EDRemberto Johns MD MD rt Teresa Vieira, RN RN [facility] Bk Montero, RN RN bm8
[2024-07-04 19:43] VITALS: TEMP 98.1
[2024-07-04 19:49] VITALS: O2SAT 98
[2024-07-04 19:50] VITALS: BP 115/57
--- NOTE | 2024-07-08 11:32 | EKG ---
Test Date: 2024-07-04 Test Time: 16:34:53 Orbitread Operator: PH MEASUREMENT RESULTS: Intervals: Rate: 77 UT: 296 QRSD: 82 QT: 408 QTc: 461 [place]: P: 64 UT: 296 QRS: 67 T: 82 INTERPRETIVE STATEMENTS: Suspect unspecified pacemaker failure Sinus rhythm with 1st degree AV block Low voltage QRS Borderline ECG Compared to ECG 03/29/2023 22:30:32 Low QRS voltage now present Atrial abnormality no longer present Electronically Signed On 07-08-24 11:23:42 CDT by Elton Buitrago
== END 2024-07-04 19:39 | disposition home or self-care (01) ==
LOC: ER 16:19
DX: R07.9 Chest pain, unspecified (principal); F41.9 Anxiety disorder, unspecified; E78.5 Hyperlipidemia, unspecified; Z86.718 Personal history of other venous thrombosis and embolism
CPT/HCPCS: 36415; 71045; 80048; 80076; 84484; 85025; 93005; 99284